=== PATIENT | female | born 1960 | race American Indian/Alaskan Native ===

== ENCOUNTER 2016-11-27 08:08 | Outpatient (CLI) | payer MEDICARE ==
--- NOTE | 2016-11-27 10:53 | Ultrasound Report ---
ULTRASOUND ABDOMEN COMPLETE: Technique: Transabdominal ultrasound with color Doppler interrogation. History: Epigastric abdominal pain. Comparison: CT abdomen pelvis with contrast dated 03/11/15. Findings: The liver is normal size, contour and echotexture. The gallbladder has been surgically removed. The CBD measures 9 mm. The visualized portions of the pancreas including the head and proximal body are within normal limits. The kidneys demonstrate no hydronephrosis or mass. Cortical thickness and echogenicity are within normal limits bilaterally. The spleen and aorta are within normal limits. No aneurysmal dilatation is noted. No ascites. IMPRESSION: Cholecystectomy, otherwise, unremarkable abdominal ultrasound.
== END 2016-11-27 08:09 | disposition home or self-care (01) ==
LOC: US 08:08
PROVIDERS: ATTEND Internal Medicine Gastroenterology
DX: R10.13 Epigastric pain (principal); Z90.49 Acquired absence of other specified parts of digestive tract
CPT/HCPCS: 76700

== ENCOUNTER 2017-01-31 08:28 | Outpatient (CLI) | payer MEDICARE ==
--- NOTE | 2017-01-31 10:27 | Mammography Report ---
Bilateral mammogram: Compared to 02/03/14. CAD study utilized. Findings: Predominance of adipose tissue bilaterally. Benign calcification right breast. Benign axillary nodes. Asymmetric density upper right breast without significant interval change. Impression: Benign findings. Annual followup recommended. BI-RADS CATEGORY: 2 = Benign ACR BI-RADS MAMMOGRAPHIC CODES: 0 = Needs additional imaging evaluation; 1 = Negative; 2 = Benign; 3 = Probably benign; 4 = Suspicious; 5 = Malignant; 6 = Known biopsy-proven malignancy COMMENT: 1. Dense breast tissue, i.e., adenosis, fibrocystic changes, etc., may obscure an underlying neoplasm. 2. Approximately 10% of cancers are not detected with mammography. 3. A negative mammography report should not delay biopsy if a clinically suspicious mass is present. COMMENT: Patient follow-up letters are generated in [employer].
== END 2017-01-31 08:29 | disposition home or self-care (01) ==
LOC: MAMMO 08:28
PROVIDERS: ATTEND Family Medicine
DX: Z12.31 Encounter for screening mammogram for malignant neoplasm of breast (principal); I10 Essential (primary) hypertension; E78.00 Pure hypercholesterolemia, unspecified; E11.9 Type 2 diabetes mellitus without complications; E03.9 Hypothyroidism, unspecified; F41.9 Anxiety disorder, unspecified
CPT/HCPCS: 77067; G0202

== ENCOUNTER 2017-02-11 09:23 | Emergency (ER) | payer MEDICARE ==
--- NOTE | 2017-02-12 18:48 | ED Elopement Review ---
ED Pt Elopement review - Results review Lab results: Review of patient's face sheet and chart reveals an elevated blood pressure of 198/119, O2 sat 100%, pulse 56, temperature 97.6, respiratory rate 15. Patient initially presented to ED for chest pain as per patient registration record face sheet. Patient had EKG which was sinus rhythm signed by Dr. Higuera. No labwork done on pt as per [employer]. pt should be called back to return to the ED for eval - Call Back decision Pt Call Back Decision: Call pt to return to ED [facility]
== END 2017-02-11 09:24 | disposition left against medical advice (07) ==
LOC: ED 09:23
DX: R07.9 Chest pain, unspecified (principal); Z53.21 Procedure and treatment not carried out due to patient leaving prior to being seen by health care provider
CPT/HCPCS: 93005; 93010

== ENCOUNTER 2017-03-18 06:03 | Day surgery (SDC) | payer MEDICARE ==
--- NOTE | 2017-03-18 07:29 | Anesthesia Day of Surgery ---
Anesthesia Day of Surgery - Day of Surgery Patient Examined: Yes Patient H&P Reviewed: Yes Patient is NPO: Yes Beta Blockers: Yes
--- NOTE | 2017-03-18 07:30 | Anesthesia Consultation ---
Anesthesia Consult and Med Hx Date of service: 03/18/17 - Airway Anesthetic Teeth Evaluation: Good ROM Head & Neck: Adequate Mental/Hyoid Distance: Adequate Mallampati Class: Class I Intubation Access Assessment: Good - Pulmonary Exam CTA: Yes - Cardiac Exam Cardiac Exam: RRR - Pre-Operative Health Status ASA Pre-Surgery Classification: ASA3 Proposed Anesthetic Plan: MAC - Pulmonary Hx Asthma: Yes (no inhaler for years) COPD: No Hx Sleep Apnea: Yes (HX SLEEP APNEA RESOLVED) - Cardiovascular System Hx Hypertension: Yes (took coreg) Hx Heart Attack/AMI: No Hx Pacemaker: No Hx Internal Defibrillator: No Hx Valvular Heart Disease: Yes (MVP) - Central Nervous System Hx Seizures: No - Endocrine Hx Renal Disease: No Hx Liver Disease: No Hx Non-Insulin Dependent Diabetes: Yes (recently placed on meds but Pt takes them intermittently) Hx Hypothyroidism: Yes (partial thyroidectomy) - Hematic Hx Sickle Cell Disease: No - Other Systems Hx Obesity: Yes
[2017-03-18] MEDS ORDERED: DIPRIVAN 10 MG/ML IV ONE (07:52)
--- NOTE | 2017-03-18 07:54 | Discharge Summary ---
Providers - Providers Date of discharge: 03/18/17 Attending physician: EDGAR CHAVEZ Primary care physician: RAHEL BETANCOURT Hospitalization Condition: Good Procedures: egd Disposition: DC-01 TO HOME OR SELFCARE Core Measure Documentation - Palliative Care Palliative Care/ Comfort Measures: Not Applicable - Core Measures Any of the following diagnoses?: none Exam - Physical Exam Narrative exam: same as pre-op exam - Constitutional Vitals: Temp Pulse Resp BP Pulse Ox 97.4 F L 61 15 141/76 99 03/18/17 07:15 03/18/17 07:15 03/18/17 07:15 03/18/17 07:15 03/18/17 07:15 Plan Activity: no restrictions Weight Bearing Status: Full Weight Bearing Diet: regular Follow up with: RAHEL BETANCOURT MD [Primary Care Provider] - 7 Days
[2017-03-18] MEDS ORDERED: NACL 0.9% 1000 ML 1,000 ML IV SCH (08:00)
[2017-03-18] MEDS ORDERED: ZOFRAN ONE (08:24)
--- NOTE | 2017-03-18 08:28 | Post Anesthesia Evaluation ---
- Post Anesthesia Evaluation Patient Participated: Yes Airway Patent: Yes Stable Respiratory Function: Yes Temp > 96.8F: Yes Pain Manageable: Yes Adequeate Hydration: Yes Anesthesia Complications: No
[2017-03-18 08:50] VITALS: BP 150/83
--- NOTE | 2017-03-18 10:10 | Operative Report ---
Operative Report Operative Report: EGD Post bypass DATE: 03/18/17 OPERATIVE REPORT - EGD PREOP DIAGNOSIS: epigastric pain POSTOP DIAGNOSIS: same SURGERY: 1.Upper endoscopy, 2. biopsy of gastric pouch mucosa SURGEON: Sanjuanita Perez M.D. CNC GRINDER: n/a TYPE OF ANESTHESIA: MAC. ESTIMATED BLOOD LOSS: None. COMPLICATIONS: None. SPECIMENS REMOVED: gastric pouch mucosa bx FINDINGS: 1. normal esophagus 2. gastric pouch -40ml 3. gastrojejunal anastomosis is 25mm INDICATIONS:INDICATION FOR PROCEDURE: Patient is a 57-year-old female s/p gastric bypass in. Pt complains of epigastric pain for several months. She is here to look for possible pathology of the pain. PROCEDURE DETAILS: After consent was reviewed, patient was taken back to the operating room where patient was placed in the left lateral decubitus position and a bite block was placed in the mouth. After a time-out was called, MAC anesthesia was initiated. I then passed the endoscope into the patients oropharynx, into the esophagus, visualized the entire esophagus, which was all within normal limits. I then visualized the gastric pouch which was normal and about 40ml in size. The gastrojejunal anastomosis was normal at about 25mm. The proximal portion of the marisol limb was normal. No ulcers, masses, or legions were identified. A biopsy was taken of the gastric pouch mucosa with cold forceps. The specimen was sent to pathology to look for H. pylori. I then desufflated the gastric pouch and removed the endoscope. Patient tolerated procedure well and was transferred to recovery room in good and stable condition.
== END 2017-03-18 06:04 | disposition home or self-care (01) ==
LOC: GIO 06:03
PROVIDERS: ATTEND Surgery
DX: R10.13 Epigastric pain (principal); J45.909 Unspecified asthma, uncomplicated; I10 Essential (primary) hypertension; E11.9 Type 2 diabetes mellitus without complications; E03.9 Hypothyroidism, unspecified; F41.9 Anxiety disorder, unspecified; M19.90 Unspecified osteoarthritis, unspecified site; M06.9 Rheumatoid arthritis, unspecified; E66.9 Obesity, unspecified; Z68.33 Body mass index [BMI] 33.0-33.9, adult; Z86.79 Personal history of other diseases of the circulatory system; Z88.2 Allergy status to sulfonamides; Z98.890 Other specified postprocedural states; Z98.84 Bariatric surgery status; Z90.49 Acquired absence of other specified parts of digestive tract; Z79.899 Other long term (current) drug therapy
CPT/HCPCS: 43239; 82962; 88305; 88342; J2405; J2704; J7030

== ENCOUNTER 2017-06-03 11:44 | Inpatient (IN) | payer MEDICARE ==
--- NOTE | 2017-06-03 12:07 | Emergency Department Report ---
Chief Complaint: Chest Pain Stated Complaint: DIFFICULTY BREATHING Time Seen by Provider: 06/03/17 12:02 - HPI History of Present Illness: Patient here reports that she was sent from [facility] [place] [facility] directly to the emergency room for evaluation of chest pain and shortness of breath. She said they did EKG at the office and they said her EKG was fine. She was seen for follow-up chest pain. Patient said her chest is hurting and she is having difficulty breathing since yesterday. Pain is 8 out of 10. She has has a history of mitral valve prolapse, thyroid disease ,systemic lupus, diabetes, hypertension, rheumatoid arthritis. See information sent by [facility] [place] along with their EKG. Patient is also complaining of epigastric pain that comes and goes and she says that she feels like her abdomen is swollen. Denies any diarrhea. Denies any radiation of pain. Patient says she has a history of acid reflux and she is on Nexium. Patient current medication are clonidine, Cruz, levothyroxine, poor air and spiralactone. She denies any history of congestive heart failure. Denies history of blood clots, personally or in her family. She said when she was been worked up for lupus and rheumatoid arthritis they told her that she should take aspirin because she has something were her blood is too thick. She says she recently came from [place] but she says she did not drive. ECHOCARDIOGRAPHY, August 2016 and she 'll E if of 55%, mild LVH and mild to moderate MR. Patient had YEIMI March 2010, dual isotope stress stress test 2010. Monitor in February 2014. This is a patient of Dr. Ackerman was a nicker. - ROS Review of Systems: All systems are negative unless stated in HPI above - Exam Vital Signs: Vital Signs 06/03/17 11:53 Temperature 98.0 F Pulse Rate 72 Respiratory 16 Rate Blood Pressure 168/90 O2 Sat by Pulse 99 Oximetry Physical Exam: gen: This is a 57-year-old female that looks mildly distressed but nontoxic in appearance. Heart : S1, S2. Regular rate and rhythm. Lungs: Sounds clear to auscultate bilaterally, patient with shortness of breath and exertion and mild increased work of breathing. Abdomen: Mild tenderness to palpate the epigastric area, MSE screening note: Focused history and physical exam performed. Due to findings the following was ordered:see [facility] ED Medical Decision Making - Medical Decision Making MDM: Patient screened by provider in triage area. Appropriate protocol initiated and patient to be seen in main ED by Dr. CARDENAS Disposition for MSE Condition: Stable
[2017-06-03 12:40] LABS: Basophils % (Auto) 0.5 % (0.0-1.8); Eosinophils % (Auto) 2.2 % (0.0-4.3); Hematocrit 34.6 % (30.3-42.9); Hemoglobin 11.1 gm/dl (10.1-14.3); Mean Corpuscular HGB Conc 32 % (30-34); Mean Corpuscular Hemoglobin 28 pg (28-32); Mean Corpuscular Volume 86 fl (79-97); Platelet Count 197 K/mm3 (140-440); Red Blood Count 4.03 M/mm3 (3.65-5.03); Red Cell Distribution Width 13.7 % (13.2-15.2); White Blood Count 5.5 K/mm3 (4.5-11.0)
[2017-06-03] MEDS ORDERED: DILAUDID IV ONE (12:43)
[2017-06-03 12:51] LABS: Partial Thromboplastin Time 30.3 Sec. (24.2-36.6)
[2017-06-03 12:55] LABS: Alanine Aminotransferase 12 units/L (7-56); Albumin 3.7 g/dL (3.9-5); Alkaline Phosphatase 129 units/L (35-129); Anion Gap 16 mmol/L; BUN/Creatinine Ratio 10; Blood Urea Nitrogen 11 mg/dL (7-17); Calcium 9.1 mg/dL (8.4-10.2); Carbon Dioxide 27 mmol/L (22-30); Chloride 102.3 mmol/L (98-107); Glucose 104 mg/dL (65-100); Lipase 26 units/L (13-60); Potassium 3.8 mmol/L (3.6-5.0); Sodium 141 mmol/L (137-145); Total Protein 7.3 g/dL (6.3-8.2)
[2017-06-03] MEDS ORDERED: ZOFRAN IV ONE (12:59)
[2017-06-03 13:02] LABS: Bacteria,Urine 1+ /HPF (Negative); Bilirubin,Urine NEG (Negative); Blood,Urine NEG (Negative); Ketones,Urine NEG (Negative); Leukocyte Esterase,Urine NEG (Negative); Nitrite,Urine NEG (Negative); Protein,Urine <15 mg/dL mg/dL (Negative); Urobilinogen,Urine < 2.0 mg/dL (<2.0)
[2017-06-03 13:03] LABS: WBC,Urine < 1.0 /HPF (0.0-6.0)
[2017-06-03] MEDS ORDERED: ZOFRAN ONE (13:03)
--- NOTE | 2017-06-03 13:19 | Emergency Department Report ---
HPI - General Chief Complaint: Chest Pain Time Seen by Provider: 06/03/17 12:07 - HPI HPI: This is a 57-year-old female presents to the emergency department from her cardiology office at [facility] with a complaint of a 2 day history of some chest pain and shortness of breath. She says it is a cramping and "grabbing" sensation that starts in the middle of the chest and radiate towards the back. She thought it might be acid reflux and therefore has been taking Nexium, an antacid and some laxatives. She has a past medical history of asthma, diabetes, GERD, hypertension, lupus and hypothyroidism. She has a surgical history of gastric bypass, thyroid removal and section. Her head host/hostess is Dr. Mcdaniel. She denies tobacco or illicit drug use or abuse. The note from the head host/hostess says that she had a normal cardiac catheterization back in 2014 and she has had for a normal nuclear stress test since 2003. She also has a history of nontraumatic mitral regurgitation. ED Past Medical Hx - Past Medical History Hx Hypertension: Yes (took coreg) Hx CVA: No Hx Heart Attack/AMI: No Hx Congestive Heart Failure: No Hx Diabetes: Yes Hx Deep Vein Thrombosis: No Hx Pulmonary Embolism: No Hx GERD: Yes Hx Liver Disease: No Hx Renal Disease: No Hx Sickle Cell Disease: No Hx Arthritis: No Hx Headaches / Migraines: No Hx Seizures: No Hx Kidney Stones: No Hx Psychiatric Treatment: No Hx Asthma: Yes (no inhaler for years) Hx COPD: No Hx Tuberculosis: No Hx Dementia: No Hx HIV: No Additional medical history: Lupus, hypothyroidism - Surgical History Hx Coronary Stent: No Hx Open Heart Surgery: No Hx Pacemaker: No Hx Internal Defibrillator: No Hx Cholecystectomy: Yes Hx Appendectomy: No Hx Breast Surgery: No Additional Surgical History: Gastric bypass, thyroid surgery, partial hysterectomy, section - Social History Smoking Status: Never Smoker Substance Use Type: Alcohol - Medications Home Medications: Home Medications Medication Instructions Recorded Confirmed Last Taken Type cloNIDine [Catapres] 0.1 mg PO BID PRN #20 tablet 05/02/15 06/03/17 06/02/17 Rx Carvedilol [Coreg] 6.25 mg PO QDAY 07/26/15 06/03/17 06/02/17 History ALPRAZolam [Xanax TAB] 1 mg PO TID PRN 06/03/17 06/03/17 06/02/17 History Esomeprazole Magnesium [NexIUM] 40 mg PO QDAY 06/03/17 06/03/17 06/02/17 History Furosemide [Lasix] 20 mg PO BID 06/03/17 06/03/17 06/02/17 History Spironolactone [Aldactone] 25 mg PO BID 06/03/17 06/03/17 06/02/17 History metFORMIN [Glucophage] 500 mg PO BID 06/03/17 06/03/17 06/02/17 History ED Review of Systems ROS: Stated complaint: DIFFICULTY BREATHING Other details as noted in HPI Comment: All other systems reviewed and negative Constitutional: denies: chills, fever Eyes: denies: eye pain, eye discharge, vision change ENT: denies: ear pain, throat pain Respiratory: shortness of breath. denies: cough Cardiovascular: chest pain. denies: palpitations Gastrointestinal: denies: abdominal pain, nausea, diarrhea Genitourinary: denies: urgency, dysuria, discharge Musculoskeletal: back pain. denies: arthralgia Skin: denies: rash, lesions Neurological: denies: headache, weakness, paresthesias Physical Exam - Physical Exam Vital Signs: Vital Signs 06/03/17 06/03/17 11:53 12:56 Temperature 98.0 F Pulse Rate 72 Respiratory 16 24 Rate Blood Pressure 168/90 O2 Sat by Pulse 99 Oximetry Physical Exam: GENERAL: The patient is well-developed well-nourished. HENT: Normocephalic. Atraumatic. Patient has moist mucous membranes. EYES: Extraocular motions are intact. Pupils equal reactive to light bilaterally. NECK: Supple. Trachea is midline. CHEST/LUNGS: Clear to auscultation. There is no respiratory distress noted. HEART/CARDIOVASCULAR: Regular. There is no tachycardia. There is no gallop rub or murmur. ABDOMEN: Abdomen is soft, nontender. Patient has normal bowel sounds. There is no abdominal distention. SKIN: Skin is warm and dry. NEURO: The patient is awake, alert, and oriented. The patient is cooperative. The patient has no focal neurologic deficits. The patient has normal speech. MUSCULOSKELETAL: There is no tenderness or deformity. There is no limitation range of motion. There is no evidence of acute injury. ED Course Vital Signs 06/03/17 06/03/17 11:53 12:56 Temperature 98.0 F Pulse Rate 72 Respiratory 16 24 Rate Blood Pressure 168/90 O2 Sat by Pulse 99 Oximetry ED Medical Decision Making - Lab Data Result diagrams: 06/03/17 12:15 06/03/17 12:15 - EKG Data -: EKG Interpreted by Me EKG shows normal: sinus rhythm, axis, intervals, QRS complexes (LVH), ST-T waves Rate: normal - EKG Data When compared to previous EKG there are: previous EKG unavailable Interpretation: LVH - Radiology Data Radiology results: image reviewed interpreted by me: Chest x-ray does not show any acute process. There are no pleural effusions, obvious pneumonia and there is no pneumothorax. - Medical Decision Making 57-year-old female presents with a few days of some chest discomfort and shortness of breath. Sent in by cardiology. First troponin negative. Negative d-dimer. EKG does not show ST elevation WI. Chest x-ray does not show any acute process. Since she has not had a negative stress test within a reasonable amount of time and was instructed by cardiology, plan will be to admit the patient for further evaluation. She has been accepted for admission by the hospitalist, Dr Ludwig. - Differential Diagnosis WI, PE, CHF, Pneumonia, GERD Critical Care Time: No Critical care attestation.: If time is entered above; I have spent that time in minutes in the direct care of this critically ill patient, excluding procedure time. ED Disposition Clinical Impression: Chest pain Qualifiers: Chest pain type: unspecified Qualified Code(s): R07.9 - Chest pain, unspecified Dyspnea Qualifiers: Dyspnea type: shortness of breath Qualified Code(s): R06.02 - Shortness of breath; R06.00 - Dyspnea, unspecified; R06.01 - Orthopnea Hypertension Qualifiers: Hypertension type: essential hypertension Qualified Code(s): I10 - Essential ( primary) hypertension Disposition: OP ADMIT IP TO THIS HOSP Is pt being admited?: Yes Condition: Stable Time of Disposition: 15:49
[2017-06-03] MEDS ORDERED: NITROSTAT SL PRN (13:43)
[2017-06-03] MEDS ORDERED: BABY ASPIRIN PO STA (13:43)
[2017-06-03] MEDS ORDERED: TYLENOL PO PRN (13:43)
[2017-06-03] MEDS ORDERED: MILK OF MAGNESIA PO PRN (13:43)
[2017-06-03] MEDS ORDERED: SODIUM CHLORIDE FLUSH SYRINGE 10 ML IV PRN (13:43)
[2017-06-03] MEDS ORDERED: PROVENTIL IH PRN (13:43)
[2017-06-03] MEDS ORDERED: DULCOLAX PR PRN (13:43)
--- NOTE | 2017-06-03 13:46 | XRay Report ---
PORTABLE CHEST INDICATION: Shortness of breath, chest pain. COMPARISON: 07/26/2015 FINDINGS: Portable, frontal chest radiograph demonstrates stable cardiomediastinal silhouette, clear lungs, lower cervical/superior mediastinal postsurgical changes and osseous structures. CONCLUSION: No acute chest process or significant interval change, as described. Thank you for the opportunity to participate in this patient's care.
[2017-06-03] MEDS ORDERED: MOTRIN PO PRN (13:47)
[2017-06-03] MEDS ORDERED: CATAPRES PO PRN (13:47)
[2017-06-03] MEDS ORDERED: NON-FORMULARY (Xanax Tab 1 MG) PO PRN (13:47)
--- NOTE | 2017-06-03 13:59 | History and Physical Report ---
History of Present Illness Chief complaint: My chest hurts History of present illness: 57 YO Female with SLE(Not currently on medication), HTN, GERD, DM, Asthma, Hypothyroid, presents to ED for evaluation. Pt states that she had experienced pain in her chest for the past 2 days with worsening symptoms over the past 1 day. Pt seen and evaluated in her cardiologists office who instructed her to present to ED for evaluation. Pt states that he pain in 4-6/10, substernal, radiates towards her back, associated with shortness of breath, cramping in nature, not worsened with exertion, or relieved with rest. Pain not relieved with antacid therapy. Pt denies fever, chills, Palpitations, NVD, syncope, leg swelling, calf pain, prolonged immobility/travel, individual/family history of DVT/PE, hemoptysis, trauma, productive cough, recent ill contacts, or noncompliance with medication. Pt seen and evaluated in ED. Past History Past Medical History: diabetes, hypertension, hypothyroidism, other (Asthma, SLE ) Past Surgical History: cholecystectomy, hysterectomy, Other (gastric bypass) Social history: single. denies: smoking, alcohol abuse, prescription drug abuse Family history: CAD, diabetes, hypertension Medications and Allergies Allergies Allergy/AdvReac Type Severity Reaction Status Date / Time Sulfa (Sulfonamide Allergy Shortness Verified 04/11/15 01:22 Antibiotics) of Breath Home Medications Medication Instructions Recorded Confirmed Last Taken Type cloNIDine [Catapres] 0.1 mg PO BID PRN #20 tablet 05/02/15 06/03/17 06/02/17 Rx Carvedilol [Coreg] 6.25 mg PO QDAY 07/26/15 06/03/17 06/02/17 History ALPRAZolam [Xanax TAB] 1 mg PO TID PRN 06/03/17 06/03/17 06/02/17 History Esomeprazole Magnesium [NexIUM] 40 mg PO QDAY 06/03/17 06/03/17 06/02/17 History Furosemide [Lasix] 20 mg PO BID 06/03/17 06/03/17 06/02/17 History Spironolactone [Aldactone] 25 mg PO BID 06/03/17 06/03/17 06/02/17 History metFORMIN [Glucophage] 500 mg PO BID 06/03/17 06/03/17 06/02/17 History Active Meds: Active Medications Acetaminophen (Tylenol) 650 mg PO Q4H PRN PRN Reason: Pain MILD(1-3)/Fever >100.5/PRYOR Acetaminophen/Hydrocodone Bitart (Shock 10/325) 1 each PO BID [facility] Albuterol (Proventil) 2.5 mg IH Q4HRT PRN PRN Reason: Shortness Of Breath Atorvastatin Calcium (Lipitor) 40 mg PO QHS [facility] Bisacodyl (Dulcolax) 10 mg MD QDAY PRN PRN Reason: Constipation unrelieved by MOM Carvedilol (Coreg) 6.25 mg PO QDAY [facility] Clonidine HCl (Catapres) 0.1 mg PO BID PRN PRN Reason: Hypertension Hydromorphone HCl (Dilaudid) 0.5 mg IV Q3H PRN PRN Reason: Pain , Severe (7-10) Ibuprofen (Motrin) 800 mg PO Q8HR PRN PRN Reason: Pain Levothyroxine Sodium (Synthroid) 150 mcg PO QAM@0600 [facility] Magnesium Hydroxide (Milk Of Magnesia) 30 ml PO Q4H PRN PRN Reason: Constipation Miscellaneous Medication (Folic Acid) 1 mg PO DAILY [facility] Miscellaneous Medication (Mometasone/Formoterol [Dulera 100 Mcg/5 Mcg Inhaler]) 2 puff INHALATION BID [facility] Miscellaneous Medication (Xanax Tab) 1 mg PO PRN PRN PRN Reason: Anxiety Nitroglycerin (Nitrostat) 0.4 mg SL Q5M PRN PRN Reason: Chest Pain Ondansetron HCl (Zofran) 4 mg IV Q8H PRN PRN Reason: N/V unrelieved by Reglan Sodium Chloride (Sodium Chloride Flush Syringe 10 Ml) 10 ml IV PRN PRN PRN Reason: LINE FLUSH Review of Systems Constitutional: fatigue, weakness, chronic pain, no weight loss, no weight gain Ears, nose, mouth and throat: no ear pain, no ear discharge, no tinnitis, no decreased hearing, no nose pain, no nasal congestion, no nasal discharge Breasts: no change in shape, no swelling, no mass Cardiovascular: chest pain, no orthopnea, no palpitations, no syncope, no lightheadedness Respiratory: no cough, no cough with sputum, no excessive sputum, no hemoptysis , no dyspnea on exertion Gastrointestinal: no abdominal pain, no nausea, no vomiting, no diarrhea, no constipation Genitourinary Female: no pelvic pain, no flank pain, no menorrhagia, no dysuria Rectal: no pain, no incontinence, no bleeding Musculoskeletal: no neck stiffness, no neck pain, no shooting arm pain, no arm numbness/tingling, no low back pain, no shooting leg pain, no leg numbness/ tingling Integumentary: no rash, no pruritis, no redness, no sores, no wounds, no jaundice Neurological: no head injury, no transient paralysis, no paralysis, no weakness , no parathesias, no numbness, no tingling, no seizures Psychiatric: no anxiety, no memory loss, no change in sleep habits, no sleep disturbances, no insomnia, no hypersomnia, no change in appetite, no change in libido, no suicidal ideation Endocrine: no cold intolerance, no heat intolerance, no polyphagia, no excessive thirst, no polydipsia Hematologic/Lymphatic: no easy bruising, no easy bleeding Allergic/Immunologic: no urticaria, no allergic rhinitis, no wheezing Exam - Constitutional Vitals: Temp Pulse Resp BP Pulse Ox 98.0 F 72 24 168/90 99 06/03/17 11:53 06/03/17 11:53 06/03/17 12:56 06/03/17 11:53 06/03/17 11:53 General appearance: Present: mild distress, obese - EENT Eyes: Present: PERRL ENT: hearing intact, clear oral mucosa - Neck Neck: Present: supple, normal ROM - Respiratory Respiratory: bilateral: diminished - Cardiovascular Heart Sounds: Present: S1 & S2. Absent: rub, click - Extremities Extremities: pulses symmetrical, No edema Peripheral Pulses: within normal limits - Abdominal General gastrointestinal: Present: soft, non-tender, non-distended, normal bowel sounds Female genitourinary: Present: normal - Integumentary Integumentary: Present: clear, dry, clammy, decreased turgor - Musculoskeletal Musculoskeletal: generalized weakness - Psychiatric Psychiatric: appropriate mood/affect, intact judgment & insight - Neurologic Neurologic: CNII-XII intact, moves all extremities Results - Labs CBC & Chem 7: 06/03/17 12:15 06/03/17 12:15 Labs: Abnormal lab results 06/03/17 06/03/17 Range/Units 12:15 12:15 [place] % (Auto) 9.7 H (0.0-7.3) % Glucose 104 H (65-100) mg/dL Albumin 3.7 L (3.9-5) g/dL Assessment and Plan - Patient Problems (1) ACS (acute coronary syndrome) Current Visit: Yes Status: Acute Plan to address problem: Admit to telemetry, serial cardiac enzymes, ekg, cardiology consulted, Echo, D dimer, supportive care, pain control morphine/dilaudid, oxygen, nitro tabs, Aspirin (2) SLE exacerbation Current Visit: Yes Status: Acute Plan to address problem: IN steroid therapy, supportive care, pain control, outpatient Rheumatology f/u. (3) Diabetes Current Visit: Yes Status: Acute Qualifiers: Diabetes mellitus type: D Diabetes mellitus complication status: D Diabetes mellitus complication detail: D Diabetic retinopathy severity: D Proliferative retinopathy type: P Diabetes mellitus macular edema: D Diabetes mellitus ad terminal makeup operator insulin use: D Laterality: L Chronic kidney disease stage: C Plan to address problem: ADA diet, insulin, accu check, low cholesterol diet, carbohydrate counting education. goal is less than 55 grams daily. (4) Accelerated hypertension Current Visit: Yes Status: Acute Plan to address problem: monitor bp q shift, continue medical management. (5) GERD (gastroesophageal reflux disease) Current Visit: Yes Status: Acute Qualifiers: Esophagitis presence: E Plan to address problem: PPI therapy, (6) DVT prophylaxis Current Visit: No Status: Acute
[2017-06-03] MEDS ORDERED: XANAX PO PRN (14:02)
[2017-06-03] MEDS ORDERED: BABY ASPIRIN ONE (14:44)
[2017-06-03] MEDS: ZOFRAN IV PRN (16:43)
[2017-06-03] MEDS: DILAUDID IV PRN (16:45)
[2017-06-03] MEDS: BROVANA NEBU IH SCH (19:47)
[2017-06-03] MEDS: PULMICORT IH SCH (19:47)
[2017-06-03] MEDS: NORCO 10/325 PO SCH (21:17)
[2017-06-03] MEDS ORDERED: NON-FORMULARY (Mometasone/Formoterol [Dulera 100 Mcg/5 Mcg Inhaler] 2 PUFF) INHALATION SCH (22:00)
[2017-06-04] MEDS: ZOFRAN IV PRN ×2 (02:17→21:33)
[2017-06-04] MEDS: DILAUDID IV PRN (02:17)
[2017-06-04] MEDS: SYNTHROID PO SCH (05:18)
[2017-06-04] MEDS ORDERED: NON-FORMULARY (Folic Acid 1 MG) PO SCH (10:00)
--- NOTE | 2017-06-04 10:02 | Progress Note ---
Assessment and Plan Assessment and plan: 57 YO Female with SLE(Not currently on medication), HTN, GERD, DM, Asthma, Hypothyroid, presents to ED for evaluation. She presented complaining of epigastric pain. SURGERY SPECIALIST he had the pain since she had bariatric surgery years ago ACS was ruled out, patient denies chest pain. Serial troponins negative, EKG negative SLE exacerbation ruled out. Patient denies any symptoms consistent with SLE she has been off meds for very long time. Diabetes Continue sliding scale insulin while in hospital Hypertension Optimize medication GERD This is most likely etiology of her symptoms. Continue PPI Abdominal pain Given that the patient has history of bariatric surgery and subsequent revision. We'll consult bariatric surgery while she is in hospital along with GI. -There is concern that this is psychosomatic. Patient advised to see her psychiatrist about patient's to optimize her medications for treatment of anxiety disorder Anxiety disorder Recommendations as above History Interval history: The patient is complaining of chronic abdominal pain, bloating, feeling of fullness and soreness in her epigastrium. She's had these symptoms on and off since she had bariatric surgery many years ago Hospitalist Physical - Constitutional Vitals: Temp Pulse Resp BP Pulse Ox 98.0 F 55 L 20 147/80 97 06/03/17 11:53 06/04/17 06:00 06/04/17 02:17 06/03/17 16:39 06/03/17 16:39 General appearance: Present: no acute distress - EENT Eyes: Present: PERRL ENT: hearing intact - Neck Neck: Present: supple - Respiratory Respiratory effort: normal Respiratory: bilateral: CTA - Cardiovascular Rhythm: regular Heart Sounds: Present: S1 & S2 - Extremities Extremities: no ischemia Peripheral Pulses: within normal limits - Abdominal General gastrointestinal: soft, non-tender - Integumentary Integumentary: Present: clear, warm - Psychiatric Psychiatric: appropriate mood/affect, other (anxious) - Neurologic Neurologic: CNII-XII intact Results - Labs CBC & Chem 7: 06/03/17 12:15 06/03/17 12:15 Labs: Laboratory Last Values WBC 5.5 K/mm3 (4.5-11.0) 06/03/17 12:15 RBC 4.03 M/mm3 (3.65-5.03) 06/03/17 12:15 Hgb 11.1 gm/dl (10.1-14.3) 06/03/17 12:15 Hct 34.6 % (30.3-42.9) 06/03/17 12:15 MCV 86 fl (79-97) 06/03/17 12:15 MCH 28 pg (28-32) 06/03/17 12:15 MCHC 32 % (30-34) 06/03/17 12:15 RDW 13.7 % (13.2-15.2) 06/03/17 12:15 Plt Count 197 K/mm3 (140-440) 06/03/17 12:15 Lymph % (Auto) 30.6 % (13.4-35.0) 06/03/17 12:15 Rosebud % (Auto) 9.7 % (0.0-7.3) H 06/03/17 12:15 Eos % (Auto) 2.2 % (0.0-4.3) 06/03/17 12:15 Baso % (Auto) 0.5 % (0.0-1.8) 06/03/17 12:15 Lymph # 1.7 K/mm3 (1.2-5.4) 06/03/17 12:15 [place] # 0.5 K/mm3 (0.0-0.8) 06/03/17 12:15 Eos # 0.1 K/mm3 (0.0-0.4) 06/03/17 12:15 Baso # 0.0 K/mm3 (0.0-0.1) 06/03/17 12:15 Seg Neutrophils % 57.0 % (40.0-70.0) 06/03/17 12:15 Seg Neutrophils # 3.1 K/mm3 (1.8-7.7) 06/03/17 12:15 PT 13.7 Sec. (12.2-14.9) 06/03/17 12:15 INR 1.00 (0.87-1.13) 06/03/17 12:15 APTT 30.3 Sec. (24.2-36.6) 06/03/17 12:15 D-Dimer 182.9 ng/mlDDU (0-234) 06/03/17 12:15 Sodium 141 mmol/L (137-145) 06/03/17 12:15 Potassium 3.8 mmol/L (3.6-5.0) 06/03/17 12:15 Chloride 102.3 mmol/L (98-107) 06/03/17 12:15 Carbon Dioxide 27 mmol/L (22-30) 06/03/17 12:15 Anion Gap 16 mmol/L 06/03/17 12:15 BUN 11 mg/dL (7-17) 06/03/17 12:15 Creatinine 1.1 mg/dL (0.7-1.2) 06/03/17 12:15 Estimated GFR > 60 ml/min 06/03/17 12:15 BUN/Creatinine Ratio 10 % 06/03/17 12:15 Glucose 104 mg/dL (65-100) H 06/03/17 12:15 POC Glucose 235 (70-105) H 06/03/17 22:02 Hemoglobin A1c 5.6 % (4-6) 06/03/17 12:15 Calcium 9.1 mg/dL (8.4-10.2) 06/03/17 12:15 Total Bilirubin 0.30 mg/dL (0.1-1.2) 06/03/17 12:15 AST 16 units/L (5-40) 06/03/17 12:15 ALT 12 units/L (7-56) 06/03/17 12:15 Alkaline Phosphatase 129 units/L (35-129) 06/03/17 12:15 Troponin T < 0.010 ng/mL (0.00-0.029) 06/03/17 19:55 NT-Pro-B Natriuret Pep 100.2 pg/mL (0-900) 06/03/17 12:15 Total Protein 7.3 g/dL (6.3-8.2) 06/03/17 12:15 Albumin 3.7 g/dL (3.9-5) L 06/03/17 12:15 Albumin/Globulin Ratio 1.0 % 06/03/17 12:15 Triglycerides 96 mg/dL (2-149) 06/03/17 12:15 Cholesterol 221 mg/dL (50-199) H 06/03/17 12:15 LDL Cholesterol Direct 132 mg/dL (50-130) H 06/03/17 12:15 HDL Cholesterol 70 mg/dL (40-59) H 06/03/17 12:15 Cholesterol/HDL Ratio 3.15 % 06/03/17 12:15 Lipase 26 units/L (13-60) 06/03/17 12:15 Urine Color Yellow (Yellow) 06/03/17 12:07 Urine Turbidity Clear (Clear) 06/03/17 12:07 Urine pH 6.0 (5.0-7.0) 06/03/17 12:07 Ur Specific Maurice 1.008 (1.003-1.030) 06/03/17 12:07 Urine Protein <15 mg/dl mg/dL (Negative) 06/03/17 12:07 Urine Glucose (UA) Neg mg/dL (Negative) 06/03/17 12:07 Urine Ketones Neg mg/dL (Negative) 06/03/17 12:07 Urine Blood Neg (Negative) 06/03/17 12:07 Urine Nitrite Neg (Negative) 06/03/17 12:07 Urine Bilirubin Neg (Negative) 06/03/17 12:07 Urine Urobilinogen < 2.0 mg/dL (<2.0) 06/03/17 12:07 Ur Leukocyte Esterase Neg (Negative) 06/03/17 12:07 Urine WBC (Auto) < 1.0 /HPF (0.0-6.0) 06/03/17 12:07 Urine RBC (Auto) 1.0 /HPF (0.0-6.0) 06/03/17 12:07 U Epithel Cells (Auto) < 1.0 /HPF (0-13.0) 06/03/17 12:07 Urine Bacteria (Auto) 1+ /HPF (Negative) 06/03/17 12:07
[2017-06-04] MEDS: BROVANA NEBU IH SCH ×2 (10:15→20:28)
[2017-06-04] MEDS: PULMICORT IH SCH ×2 (10:16→20:28)
[2017-06-04] MEDS ORDERED: Fluarix Quad 2017-2018(36 MOS+ IM ONE (12:00)
[2017-06-04] MEDS ORDERED: PNEUMOVAX 23 IM ONE (12:00)
--- NOTE | 2017-06-04 12:03 | Consultation ---
History of Present Illness Consult date: 06/04/17 Consult reason: chest pain History of present illness: This is a 57yr old woman who presented with chest pain describes as feeling of indigestion. Cardiac consultation was requested. Patient also reports chest pain that is worse with movement and deep inspirations. Patient has a history of gastric bypass surgery. There is no history of coronary artery disease. In fact, 2 years ago she had extensive cardiac workup at this hospital. She had a cardiac catheterization that demostrates normal coronaries. She also had a normal left ventricular systolic function, ejection fraction 60% on an echocardiogram. Her presenting ECG is a normal sinus rhythm. Past History Past Medical History: diabetes, hypertension, hypothyroidism, other (Asthma, SLE ) Past Surgical History: cholecystectomy, hysterectomy, Other (gastric bypass) Social history: single. denies: smoking, alcohol abuse, prescription drug abuse Family history: CAD, diabetes, hypertension Medications and Allergies Allergies Allergy/AdvReac Type Severity Reaction Status Date / Time Sulfa (Sulfonamide Allergy Shortness Verified 04/11/15 01:22 Antibiotics) of Breath Home Medications Medication Instructions Recorded Confirmed Last Taken Type cloNIDine [Catapres] 0.1 mg PO BID PRN #20 tablet 05/02/15 06/03/17 06/02/17 Rx Carvedilol [Coreg] 6.25 mg PO QDAY 07/26/15 06/03/17 06/02/17 History ALPRAZolam [Xanax TAB] 1 mg PO TID PRN 06/03/17 06/03/17 06/02/17 History Esomeprazole Magnesium [NexIUM] 40 mg PO QDAY 06/03/17 06/03/17 06/02/17 History Furosemide [Lasix] 20 mg PO BID 06/03/17 06/03/17 06/02/17 History Spironolactone [Aldactone] 25 mg PO BID 06/03/17 06/03/17 06/02/17 History metFORMIN [Glucophage] 500 mg PO BID 06/03/17 06/03/17 06/02/17 History Active Meds: Active Medications Acetaminophen (Tylenol) 650 mg PO Q4H PRN PRN Reason: Pain MILD(1-3)/Fever >100.5/PRYOR Acetaminophen/Hydrocodone Bitart ([place] 10/325) 1 each PO BID [facility] Last Admin: 06/03/17 21:17 Dose: 1 each Albuterol (Proventil) 2.5 mg IH Q4HRT PRN PRN Reason: Shortness Of Breath Alprazolam (Xanax) 1 mg PO Q6H PRN PRN Reason: Anxiety Arformoterol Tartrate (Brovana Nebu) 15 mcg IH Q12HRT [facility] Last Admin: 06/04/17 10:15 Dose: 15 mcg Atorvastatin Calcium (Lipitor) 40 mg PO QHS [facility] Last Admin: 06/03/17 21:17 Dose: 40 mg Bisacodyl (Dulcolax) 10 mg [place] QDAY PRN PRN Reason: Constipation unrelieved by MOM Budesonide (Pulmicort) 0.5 mg IH Q12HRT [facility] Last Admin: 06/04/17 10:16 Dose: 0.5 mg Carvedilol (Coreg) 6.25 mg PO QDAY [facility] Clonidine HCl (Catapres) 0.1 mg PO BID PRN PRN Reason: Hypertension Folic Acid (Folvite) 1 mg PO DAILY [facility] Hydromorphone HCl (Dilaudid) 0.5 mg IV Q3H PRN PRN Reason: Pain , Severe (7-10) Last Admin: 06/04/17 02:17 Dose: 0.5 mg Ibuprofen (Motrin) 800 mg PO Q8HR PRN PRN Reason: Pain Influenza Virus Vaccine Quadrival (Fluarix Quad [id number](36 Mos+) 0.5 ml IM .ONCE ONE Stop: 06/04/17 12:01 Levothyroxine Sodium (Synthroid) 150 mcg PO QAM@0600 [facility] Last Admin: 06/04/17 05:18 Dose: 150 mcg Magnesium Hydroxide (Milk Of Magnesia) 30 ml PO Q4H PRN PRN Reason: Constipation Methylprednisolone Sodium Succinate (Solu-Medrol) 40 mg IV Q12H [facility] Last Admin: 06/04/17 02:17 Dose: 40 mg Nitroglycerin (Nitrostat) 0.4 mg SL Q5M PRN PRN Reason: Chest Pain Ondansetron HCl (Zofran) 4 mg IV Q8H PRN PRN Reason: N/V unrelieved by Reglan Last Admin: 06/04/17 02:17 Dose: 4 mg Pneumococcal Polyvalent Vaccine (Pneumovax 23) 0.5 ml IM .ONCE ONE Stop: 06/04/17 12:01 Sodium Chloride (Sodium Chloride Flush Syringe 10 Ml) 10 ml IV PRN PRN PRN Reason: LINE FLUSH Physical Examination Vital Signs Temp Pulse Resp BP Pulse Ox 98.0 F 72 16 168/90 99 06/03/17 11:53 06/03/17 11:53 06/03/17 11:53 06/03/17 11:53 06/03/17 11:53 General appearance: no acute distress HEENT: Positive: PERRL Neck: Positive: trachea midline Cardiac: Positive: Reg Rate and Rhythm Results 06/03/17 12:15 06/03/17 12:15 Assessment and Plan Atypical chest pain Hypertension Hx of Gastric bypass Diabetes mellitus Hyperlipidemia
[2017-06-04] MEDS: NORCO 10/325 PO SCH ×2 (12:40→21:28)
[2017-06-04] MEDS: COREG PO SCH (12:41)
[2017-06-04] MEDS: FOLVITE PO SCH (12:42)
[2017-06-04] MEDS ORDERED: ALUM-MAG HYDROX-SIMETH 200-200-20MG/5ML PO PRN (13:38)
[2017-06-05] MEDS: DILAUDID IV PRN (05:26)
[2017-06-05] MEDS: ZOFRAN IV PRN (05:27)
[2017-06-05] MEDS: SYNTHROID PO SCH (05:28)
--- NOTE | 2017-06-05 06:26 | History and Physical Report ---
History of Present Illness Date of examination: 06/05/17 Date of admission: 06/03/17 13:43 Chief complaint: Cramping epigastric pain. History of present illness: 57 yo AAF with PMH of HTN, DM, hernia, and gastric bypass in 2008 presents for cramping epigastric pain. Pt states it feels like a chest pain that radiates to the back. Pain began on Saturday night/Saturday morning and pt presented to the hospital on Saturday. Pt also feels like she is having increased amounts of gas and bloating. While at home, she tried Nexium, Antacids, and laxatives with minimal relief. C/o nausea, denies constipation, diarrhea, or vomiting. Pt states she has not been taking in much food or liquid since the pain began. States that she has not felt this pain since her bariatric surgery, but before the procedure she did have a hernia and had a similar pain with cramping and indigestion. Pt reports mild shortness of breath. Past History Past Medical History: diabetes, hypertension, hypothyroidism, other (Asthma, SLE ) Past Surgical History: cholecystectomy, thyroidectomy, hysterectomy, Other ( gastric bypass) Social history: single, lives with family. denies: smoking, alcohol abuse, prescription drug abuse Family history: CAD, diabetes, hypertension, other (SLE (sister)) Medications and Allergies Allergies Allergy/AdvReac Type Severity Reaction Status Date / Time Sulfa (Sulfonamide Allergy Shortness Verified 04/11/15 01:22 Antibiotics) of Breath Home Medications Medication Instructions Recorded Confirmed Last Taken Type ALPRAZolam [Xanax TAB] 1 mg PO TID PRN #14 tablet 06/05/17 Unknown Rx AtorvaSTATin [Lipitor] 40 mg PO QHS #30 tablet 06/05/17 Unknown Rx Carvedilol [Coreg] 6.25 mg PO QDAY #60 tablet 06/05/17 Unknown Rx Esomeprazole Magnesium [NexIUM] 40 mg PO QDAY #30 capsule. 06/05/17 Unknown Rx Folic Acid [Folvite] 1 mg PO DAILY #30 tablet 06/05/17 Unknown Rx HYDROcodone/APAP 10-325 [[place] 1 each PO BID #14 tablet 06/05/17 Unknown Rx 10-325 mg TAB] Levothyroxine [Synthroid] 150 mcg PO QAM@0600 #30 tablet 11/15/17 Unknown Rx traZODone [Desyrel] 50 mg PO QHS #30 tab 06/05/17 Unknown Rx Active Meds: Active Medications Acetaminophen (Tylenol) 650 mg PO Q4H PRN PRN Reason: Pain MILD(1-3)/Fever >100.5/PRYOR Acetaminophen/Hydrocodone Bitart ([place] 10/325) 1 each PO BID [facility] Last Admin: 06/04/17 21:28 Dose: 1 each Al Hydrox/Mg Hydrox/Simethicone (Alum-Mag Hydrox-Simeth 813-895-40pf/5ml) 30 ml PO Q4H PRN PRN Reason: Indigestion Last Admin: 06/04/17 21:28 Dose: 30 ml Albuterol (Proventil) 2.5 mg IH Q4HRT PRN PRN Reason: Shortness Of Breath Alprazolam (Xanax) 1 mg PO Q6H PRN PRN Reason: Anxiety Arformoterol Tartrate (Brovana Nebu) 15 mcg IH Q12HRT [facility] Last Admin: 06/04/17 20:28 Dose: 15 mcg Atorvastatin Calcium (Lipitor) 40 mg PO QHS [facility] Last Admin: 06/04/17 21:28 Dose: 40 mg Bisacodyl (Dulcolax) 10 mg [place] QDAY PRN PRN Reason: Constipation unrelieved by MOM Budesonide (Pulmicort) 0.5 mg IH Q12HRT [facility] Last Admin: 06/04/17 20:28 Dose: 0.5 mg Carvedilol (Coreg) 6.25 mg PO QDAY [facility] Last Admin: 06/04/17 12:41 Dose: 6.25 mg Clonidine HCl (Catapres) 0.1 mg PO BID PRN PRN Reason: Hypertension Folic Acid (Folvite) 1 mg PO DAILY [facility] Last Admin: 06/04/17 12:42 Dose: 1 mg Hydromorphone HCl (Dilaudid) 0.5 mg IV Q3H PRN PRN Reason: Pain , Severe (7-10) Last Admin: 06/05/17 05:26 Dose: 0.5 mg Levothyroxine Sodium (Synthroid) 150 mcg PO QAM@0600 [facility] Last Admin: 06/05/17 05:28 Dose: 150 mcg Magnesium Hydroxide (Milk Of Magnesia) 30 ml PO Q4H PRN PRN Reason: Constipation Methylprednisolone Sodium Succinate (Solu-Medrol) 40 mg IV Q12H [facility] Last Admin: 06/05/17 02:44 Dose: Not Given Nitroglycerin (Nitrostat) 0.4 mg SL Q5M PRN PRN Reason: Chest Pain Ondansetron HCl (Zofran) 4 mg IV Q8H PRN PRN Reason: N/V unrelieved by Reglan Last Admin: 06/05/17 05:27 Dose: 4 mg Sodium Chloride (Sodium Chloride Flush Syringe 10 Ml) 10 ml IV PRN PRN PRN Reason: LINE FLUSH Review of Systems - Constitutional no fever, no chills, no sweats, no anorexia, no weakness - Respiratory shortness of breath, no cough, no congestion, no wheezing - Gastrointestinal abdominal pain, nausea, indigestion, belching (Feels like she needs to but isn' t able to), dyspepsia/bloating, no vomiting, no diarrhea, no constipation - Genitourinary Genitourinary: no pelvic pain, no dysuria, no hematuria - Muskuloskeletal other (Pain above ankles B/L), no neck stiffness, no neck pain, no muscle weakness, no muscle cramps - Integumentary no rash, no redness, no sores - Neurological no weakness, no parathesias, no numbness, no syncope - Endocrine no cold intolerance, no excessive thirst, no polyuria, no palpatations - Hematologic/Lymphatic easy bruising, no lymphadenopathy Exam Vital Signs Temp Pulse Resp BP Pulse Ox 98.0 F 72 16 168/90 99 06/03/17 11:53 06/03/17 11:53 06/03/17 11:53 06/03/17 11:53 06/03/17 11:53 - General physical appearance Positive: well developed, well nourished, moderate distress, moderate pain - Eyes Positive: normal occular movement - Neck Positive: trachea midline, no lymphadectomy - Respiratory Positive: normal expansion, normal respiratory effort, clear to auscultation - Cardiovascular Rhythm: regular Heart Sounds: Present: S1 & S2. Absent: gallop, systolic murmur, diastolic murmur, rub - Extremities Extremities: No edema, normal temperature, normal color, Full ROM - Abdomen Abdomen: Present: soft, tender, bowel sounds normal, distended, surgical scars. Absent: masses, rebound, guarding - Integumentary no rash - Neurologic Neurologic: alert and oriented to time, place and person, motor strength and sensation are grossly intact - Psychiatric Psychiatric: appropriate mood/affect, memory intact Results - Labs 06/03/17 12:15 06/03/17 12:15 Abnormal lab results 06/04/17 06/04/17 06/04/17 Range/Units 11:35 16:37 21:09 POC Glucose 197 H 153 H 183 H (70-105) Assessment and Plan 57 yo AAF w/ PMH of HTN, DM, hernia, and gastric bypass in 2015 presents with cramping epigastric pain. 1. Epigastric/retrosternal pain - H/o hernia and gastric bypass - Reports a similar feeling before hernia repair - + nausea, - vomiting, diarrhea, constipation - Diffuse abd tenderness to palpation - EGD done 02/2017 - normal results - Cardio following - CXR normal, Echo showed LV function is normal, EF 60-65%, mild pulmonary HTN, RV systolic pressure 35 mmHg - overall no acute processes - Per cardio, symptoms and evaluation not consistent w/ coronary pain - Continue to monitor vitals - Zofran q4 for nausea - GI consulted - symptomatic treatment, no further recommendations needed per GI - will sign off and pt to follow up in [address] Chong 2. HTN - On home BP meds, restarted - Continue to monitor BP q shift - Recommendations per hospitalist/internal 3. DM - Management per hospitalist/internal 4. Hypothyroid - Partial thyroid removal in 1975 - Continue taking Synthroid - Recommendations per hospitalist/internal Other medical conditions per primary. GI prophylaxis and DVT prophylaxis need to be started.
[2017-06-05] MEDS: PULMICORT IH SCH (08:25)
[2017-06-05] MEDS: BROVANA NEBU IH SCH (08:25)
--- NOTE | 2017-06-05 10:04 | Discharge Summary ---
Providers - Providers Date of Admission: 06/03/17 13:43 Attending physician: ESEQUIEL REBOLLAR MD 06/04/17 17:29 Consult to Physician [CONS] Routine Consulting Provider: EDGAR CHAVEZ Reason For Exam: abdominal pain, sp Bariatric surgery Place consult to:: dR CHAVEZ Notified:: A SERVICE Phone number called:: [phone] Was contact made?: Yes If yes, spoke with:: HAMMAD Time called:: 18:12 06/04/17 17:30 Consult to Physician [CONS] Routine Consulting Provider: PATRICIO TOTH Reason For Exam: abdominal pain, sp Bariatric surgery Place consult to:: GI Notified:: A SERVICE Phone number called:: [phone] Was contact made?: Yes If yes, spoke with:: MICHAEL Time called:: 18:03 Primary care physician: [facility] [place] BAND SAWYER Hospitalization Condition: Stable Hospital course: 57 YO Female with SLE(Not currently on medication), HTN, GERD, DM, Asthma, Hypothyroid, presents to ED for evaluation. She presented complaining of epigastric pain. She had the pain on and off since she had bariatric surgery years ago. She was seen by cardiology while she was in hospital were deemed that her pain was most likely from her GI tract and not cardiac in origin. She' ll also seen by gastroenterology and bariatric surgery. The case was reviewed and was found that she actually had a recent EGD which was benign. Patient had a lot of anxiety. And she was advised to follow-up with psychiatrist for better treatment of anxiety disorder. Because her symptoms are most likely psychosomatic since she's had extensive workup which has been benign.She was given a rx for an anxiolytic and pain medication prior to dc Discharge diagnoses GERD Abdominal pain Anxiety disorder Diabetes Hypertension Disposition: DC-01 TO HOME OR SELFCARE Time spent for discharge: 33 minutes Core Measure Documentation - Palliative Care Palliative Care/ Comfort Measures: Not Applicable - Core Measures Any of the following diagnoses?: none Exam - Constitutional Vitals: Temp Pulse Resp BP Pulse Ox 98.5 F 58 L 16 153/75 100 06/05/17 08:12 06/05/17 08:38 06/05/17 08:38 06/05/17 08:12 06/05/17 08:25 General appearance: Present: no acute distress, well-nourished - EENT Eyes: Present: PERRL ENT: hearing intact, clear oral mucosa - Neck Neck: Present: supple, normal ROM - Respiratory Respiratory effort: normal Respiratory: bilateral: CTA - Cardiovascular Heart Sounds: Present: S1 & S2. Absent: rub, click - Extremities Extremities: pulses symmetrical, No edema Peripheral Pulses: within normal limits - Abdominal General gastrointestinal: Present: soft, non-tender, non-distended, normal bowel sounds Female genitourinary: Present: normal - Integumentary Integumentary: Present: clear, warm, dry - Musculoskeletal Musculoskeletal: gait normal, strength equal bilaterally - Psychiatric Psychiatric: appropriate mood/affect, intact judgment & insight - Neurologic Neurologic: CNII-XII intact, moves all extremities Plan Follow up with: АЛЕКСАНДР PRIETO MD [Staff Physician] - 7 Days PATRICIO TOTH MD [Staff Physician] - 7 Days PRIMARY CARE, [Primary Care Provider] - 3-5 Days Forms: Discharge Signature Page Prescriptions: AtorvaSTATin [Lipitor] 40 mg PO QHS #30 tablet traZODone [Desyrel] 50 mg PO QHS #30 tab ALPRAZolam [Xanax TAB] 1 mg PO TID PRN #14 tablet PRN Reason: Anxiety Carvedilol [Coreg] 6.25 mg PO QDAY #60 tablet Esomeprazole Magnesium [NexIUM] 40 mg PO QDAY #30 capsule. Folic Acid [Folvite] 1 mg PO DAILY #30 tablet HYDROcodone/APAP 10-325 [[place] 10-325 mg TAB] 1 each PO BID #14 tablet Levothyroxine [Synthroid] 150 mcg PO QAM@0600 #30 tablet
--- NOTE | 2017-06-05 10:07 | Gastroenterology Consultation ---
History of Present Illness - Reason for Consult Consult date: 06/05/17 abdominal pain, s/p bariatric surgery Requesting physician: ESEQUIEL REBOLLAR - History of Present Illness Patient is a 57 y/o with PMH of SLE, HTN, GERD, DM, Asthma, and hypothyroid who presented to the ED for c/o CP, SOB, and epigastric pain. She has a complicated surgical hx with a fundoplication followed by a gastric bypass in 2008, to which she had continued drainage from her umbilicus with abd pain leading to a laparoscopy in 2015. Pt reports having chronic epigastric pain since gastric bypass with a recent EGD by Dr. Perez 03/18/2017 for evaluation of pain with results unremarkable. She has been followed by Dr. Chong at [facility] specialist for several years. This am pt was resting in bed. No acute distress. She states she developed burping, substernal CP associated with SOB that is described as a cramping pain which radiates to her back worsened by movement, along with her chronic epigastric pain on Saturday. Admits to a limited PO intake 2/2 early satiety with a 20lb wt loss over the last few months. Has BM x 1 daily with taking Linzess. Denies fever, N/V, dysphagia, odynophagia, diarrhea, constipation, or signs of bleeding. Past History Past Medical History: diabetes, hypertension, hypothyroidism, other (Asthma, SLE ) Past Surgical History: cholecystectomy, thyroidectomy, hysterectomy, Other ( gastric bypass, hiatal hernia repair, laparoscopy) Social history: single, lives with family. denies: smoking, alcohol abuse, prescription drug abuse Family history: CAD, diabetes, hypertension, other (SLE (sister)) Medications and Allergies Allergies Allergy/AdvReac Type Severity Reaction Status Date / Time Sulfa (Sulfonamide Allergy Shortness Verified 04/11/15 01:22 Antibiotics) of Breath Home Medications Medication Instructions Recorded Confirmed Last Taken Type ALPRAZolam [Xanax TAB] 1 mg PO TID PRN #14 tablet 06/05/17 Unknown Rx AtorvaSTATin [Lipitor] 40 mg PO QHS #30 tablet 06/05/17 Unknown Rx Carvedilol [Coreg] 6.25 mg PO QDAY #60 tablet 06/05/17 Unknown Rx Esomeprazole Magnesium [NexIUM] 40 mg PO QDAY #30 capsule. 06/05/17 Unknown Rx Folic Acid [Folvite] 1 mg PO DAILY #30 tablet 06/05/17 Unknown Rx HYDROcodone/APAP 10-325 [[place] 1 each PO BID #14 tablet 06/05/17 Unknown Rx 10-325 mg TAB] Levothyroxine [Synthroid] 150 mcg PO QAM@0600 #30 tablet 06/05/17 Unknown Rx traZODone [Desyrel] 50 mg PO QHS #30 tab 06/05/17 Unknown Rx Active Meds: Active Medications Acetaminophen (Tylenol) 650 mg PO Q4H PRN PRN Reason: Pain MILD(1-3)/Fever >100.5/PRYOR Acetaminophen/Hydrocodone Bitart ([place] 10/325) 1 each PO BID [facility] Last Admin: 06/04/17 21:28 Dose: 1 each Al Hydrox/Mg Hydrox/Simethicone (Alum-Mag Hydrox-Simeth [id number]/5ml) 30 ml PO Q4H PRN PRN Reason: Indigestion Last Admin: 06/04/17 21:28 Dose: 30 ml Albuterol (Proventil) 2.5 mg IH Q4HRT PRN PRN Reason: Shortness Of Breath Alprazolam (Xanax) 1 mg PO Q6H PRN PRN Reason: Anxiety Arformoterol Tartrate (Brovana Nebu) 15 mcg IH Q12HRT [facility] Last Admin: 06/05/17 08:25 Dose: 15 mcg Atorvastatin Calcium (Lipitor) 40 mg PO QHS [facility] Last Admin: 06/04/17 21:28 Dose: 40 mg Bisacodyl (Dulcolax) 10 mg NE QDAY PRN PRN Reason: Constipation unrelieved by MOM Budesonide (Pulmicort) 0.5 mg IH Q12HRT [facility] Last Admin: 06/05/17 08:25 Dose: 0.5 mg Carvedilol (Coreg) 6.25 mg PO QDAY [facility] Last Admin: 06/04/17 12:41 Dose: 6.25 mg Clonidine HCl (Catapres) 0.1 mg PO BID PRN PRN Reason: Hypertension Folic Acid (Folvite) 1 mg PO DAILY [facility] Last Admin: 06/04/17 12:42 Dose: 1 mg Hydromorphone HCl (Dilaudid) 0.5 mg IV Q3H PRN PRN Reason: Pain , Severe (7-10) Last Admin: 06/05/17 05:26 Dose: 0.5 mg Levothyroxine Sodium (Synthroid) 150 mcg PO QAM@0600 [facility] Last Admin: 06/05/17 05:28 Dose: 150 mcg Magnesium Hydroxide (Milk Of Magnesia) 30 ml PO Q4H PRN PRN Reason: Constipation Methylprednisolone Sodium Succinate (Solu-Medrol) 40 mg IV Q12H [facility] Last Admin: 06/05/17 02:44 Dose: Not Given Nitroglycerin (Nitrostat) 0.4 mg SL Q5M PRN PRN Reason: Chest Pain Ondansetron HCl (Zofran) 4 mg IV Q8H PRN PRN Reason: N/V unrelieved by Reglan Last Admin: 06/05/17 05:27 Dose: 4 mg Sodium Chloride (Sodium Chloride Flush Syringe 10 Ml) 10 ml IV PRN PRN PRN Reason: LINE FLUSH Review of Systems - Review of Systems All systems: negative Cardiovascular: chest pain, shortness of breath Gastrointestinal: abdominal pain, early satiety, belching Exam - Constitutional Vital Signs: Temp Pulse Resp BP Pulse Ox 98.5 F 58 L 16 153/75 100 06/05/17 08:12 06/05/17 08:38 06/05/17 08:38 06/05/17 08:12 06/05/17 08:25 General appearance: no acute distress, obese - EENT Eyes: PERRL, EOM intact ENT: hearing intact - Respiratory Respiratory: bilateral: CTA - Cardiovascular Rhythm: regular Heart Sounds: Present: S1 & S2 Extremities: No edema - Gastrointestinal General gastrointestinal: Present: soft, tender (mildly tender in epigastric area), non-distended, normal bowel sounds - Integumentary Integumentary: Present: warm, dry - Neurologic Neurological: alert and oriented x3 - Labs CBC & Chem 7: 06/03/17 12:15 06/03/17 12:15 Lab Results: Laboratory Results - last 24 hr 06/04/17 06/04/17 06/04/17 11:35 16:37 21:09 POC Glucose 197 H 153 H 183 H 06/05/17 06/05/17 05:04 09:08 POC Glucose 102 103 Assessment and Plan 1.chronic epigastric pain 2.substernal atypical CP 3.hx of gastric bypass -EGD 03/18/17 that was unremarkable by Dr. 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 Chong -will sign off
--- NOTE | 2017-06-05 10:27 | Progress Note ---
Assessment and Plan Epigastric pain Hypertension Hx of Gastric bypass Diabetes mellitus Hyperlipidemia Normal coronaries by [facility] 2014 EF 60-65% on echocardiogram this admission Conservative cardiac management. Subjective Date of service: 06/05/17 Interval history: Patient reports epigastic pain. Objective Vital Signs Temp Pulse Pulse Pulse Resp Resp Resp 06/05/17 08:38 58 L 16 06/05/17 08:26 56 L 16 06/05/17 08:25 06/05/17 08:12 98.5 F 90 18 06/05/17 08:00 56 L 06/05/17 05:26 20 06/05/17 05:06 55 L 06/05/17 01:16 97.6 F 53 L 18 06/04/17 22:00 71 06/04/17 20:30 59 L 18 06/04/17 20:25 06/04/17 20:20 60 22 06/04/17 19:47 97.7 F 72 18 06/04/17 16:31 98.3 F 56 L 20 06/04/17 14:35 06/04/17 12:41 69 06/04/17 11:55 97.5 F L 58 L 20 BP BP Pulse Ox 06/05/17 08:38 06/05/17 08:26 06/05/17 08:25 100 06/05/17 08:12 153/75 98 06/05/17 08:00 06/05/17 05:26 06/05/17 05:06 06/05/17 01:16 140/75 97 06/04/17 22:00 06/04/17 20:30 06/04/17 20:25 98 06/04/17 20:20 06/04/17 19:47 123/100 99 06/04/17 16:31 164/72 100 06/04/17 14:35 100 06/04/17 12:41 149/67 06/04/17 11:55 149/67 99 - Physical Examination General: No Apparent Distress HEENT: Positive: PERRL Neck: Positive: trachea midline Cardiac: Positive: Reg Rate and Rhythm
[2017-06-05] MEDS: NORCO 10/325 PO SCH (10:33)
[2017-06-05] MEDS: COREG PO SCH (10:34)
[2017-06-05] MEDS: FOLVITE PO SCH (10:34)
--- NOTE | 2017-06-05 11:56 | Consultation ---
History of Present Illness Consult date: 06/05/17 Reason for consult: abdominal pain Chief complaint: Cramping epigastric/retrosternal pain. - History of present illness History of present illness: 57 yo AAF with PMH of HTN, DM, hernia, and gastric bypass in 2008 presents for cramping epigastric pain. Pt states it feels like a chest pain that radiates to the back. Pain began on Saturday night/Saturday morning and pt presented to the hospital on Saturday. Pt also feels like she is having increased amounts of gas and bloating. While at home, she tried Nexium, Antacids, and laxatives with minimal relief. C/o nausea, denies constipation, diarrhea, or vomiting. Pt states she has not been taking in much food or liquid since the pain began. States that she has not felt this pain since her bariatric surgery, but before the procedure she did have a hiatal hernia and had a similar pain with cramping and indigestion. Pt reports mild shortness of breath. Past History Past Medical History: diabetes, hypertension, hypothyroidism, other (Asthma, SLE ) Past Surgical History: cholecystectomy, thyroidectomy, hysterectomy, Other (lap gastric bypass 2008, lap Hiatal hernia repair 2012, EGD:2015:1-2cm hiatal hernia GJ 40, pouch 40, Lap PJ, umbilical hernia repair 2015, 2016: EGD no hernia mentioned) Social history: single, lives with family. denies: smoking, alcohol abuse, prescription drug abuse Family history: CAD, diabetes, hypertension, other (SLE (sister)) Medications and Allergies Allergies Allergy/AdvReac Type Severity Reaction Status Date / Time Sulfa (Sulfonamide Allergy Shortness Verified 04/11/15 01:22 Antibiotics) of Breath Home Medications Medication Instructions Recorded Confirmed Last Taken Type ALPRAZolam [Xanax TAB] 1 mg PO TID PRN #14 tablet 06/05/17 Unknown Rx AtorvaSTATin [Lipitor] 40 mg PO QHS #30 tablet 06/05/17 Unknown Rx Carvedilol [Coreg] 6.25 mg PO QDAY #60 tablet 06/05/17 Unknown Rx Esomeprazole Magnesium [NexIUM] 40 mg PO QDAY #30 capsule. 06/05/17 Unknown Rx Folic Acid [Folvite] 1 mg PO DAILY #30 tablet 06/05/17 Unknown Rx HYDROcodone/APAP 10-325 [[place] 1 each PO BID #14 tablet 06/05/17 Unknown Rx 10-325 mg TAB] Levothyroxine [Synthroid] 150 mcg PO QAM@0600 #30 tablet 06/05/17 Unknown Rx traZODone [Desyrel] 50 mg PO QHS #30 tab 06/05/17 Unknown Rx Active Meds: Active Medications Acetaminophen (Tylenol) 650 mg PO Q4H PRN PRN Reason: Pain MILD(1-3)/Fever >100.5/PRYOR Acetaminophen/Hydrocodone Bitart ([place] 10/325) 1 each PO BID [facility] Last Admin: 06/05/17 10:33 Dose: 1 each Al Hydrox/Mg Hydrox/Simethicone (Alum-Mag Hydrox-Simeth [phone]/5ml) 30 ml PO Q4H PRN PRN Reason: Indigestion Last Admin: 06/04/17 21:28 Dose: 30 ml Albuterol (Proventil) 2.5 mg IH Q4HRT PRN PRN Reason: Shortness Of Breath Alprazolam (Xanax) 1 mg PO Q6H PRN PRN Reason: Anxiety Arformoterol Tartrate (Brovana Nebu) 15 mcg IH Q12HRT [facility] Last Admin: 06/05/17 08:25 Dose: 15 mcg Atorvastatin Calcium (Lipitor) 40 mg PO QHS [facility] Last Admin: 06/04/17 21:28 Dose: 40 mg Bisacodyl (Dulcolax) 10 mg MD QDAY PRN PRN Reason: Constipation unrelieved by MOM Budesonide (Pulmicort) 0.5 mg IH Q12HRT [facility] Last Admin: 06/05/17 08:25 Dose: 0.5 mg Carvedilol (Coreg) 6.25 mg PO QDAY [facility] Last Admin: 06/05/17 10:34 Dose: 6.25 mg Clonidine HCl (Catapres) 0.1 mg PO BID PRN PRN Reason: Hypertension Folic Acid (Folvite) 1 mg PO DAILY [facility] Last Admin: 06/05/17 10:34 Dose: 1 mg Hydromorphone HCl (Dilaudid) 0.5 mg IV Q3H PRN PRN Reason: Pain , Severe (7-10) Last Admin: 06/05/17 05:26 Dose: 0.5 mg Levothyroxine Sodium (Synthroid) 150 mcg PO QAM@0600 [facility] Last Admin: 06/05/17 05:28 Dose: 150 mcg Magnesium Hydroxide (Milk Of Magnesia) 30 ml PO Q4H PRN PRN Reason: Constipation Nitroglycerin (Nitrostat) 0.4 mg SL Q5M PRN PRN Reason: Chest Pain Ondansetron HCl (Zofran) 4 mg IV Q8H PRN PRN Reason: N/V unrelieved by Reglan Last Admin: 06/05/17 05:27 Dose: 4 mg Sodium Chloride (Sodium Chloride Flush Syringe 10 Ml) 10 ml IV PRN PRN PRN Reason: LINE FLUSH Trazodone HCl (Desyrel) 50 mg PO QHS [facility] Review of Systems - Constitutional fatigue, weakness, no fever, no chills, no sweats - Cardiovascular no chest pain, no palpitations, no rapid/irregular heart beat, no edema, no syncope, no lightheadedness - Respiratory shortness of breath, no congestion, no wheezing - Gastrointestinal abdominal pain, nausea, indigestion, belching, no vomiting, no diarrhea, no constipation - Muskuloskeletal no neck stiffness, no neck pain, no muscle weakness, no muscle cramps - Integumentary no rash, no redness, no sores - Neurological no weakness, no parathesias, no numbness, no syncope - Hematologic/Lymphatic easy bruising, no easy bleeding, no lymphadenopathy Exam Vital Signs Temp Pulse Resp BP Pulse Ox 98.0 F 72 16 168/90 99 06/03/17 11:53 06/03/17 11:53 06/03/17 11:53 06/03/17 11:53 06/03/17 11:53 - General physical appearance Positive: well developed, well nourished, moderate distress - Eyes Positive: normal occular movement - Neck Positive: trachea midline, no lymphadectomy - Respiratory Positive: normal expansion, normal respiratory effort, clear to auscultation - Cardiovascular Rhythm: regular Heart Sounds: Present: S1 & S2. Absent: gallop, systolic murmur, diastolic murmur - Extremities Extremities: no ischemia, No edema, normal temperature, normal color, Full ROM - Abdomen Abdomen: Present: soft, tender, bowel sounds normal, surgical scars (Healed; Clean and dry). Absent: distended, rebound, guarding - Integumentary no rash - Neurologic Neurologic: alert and oriented to time, place and person, motor strength and sensation are grossly intact - Psychiatric Psychiatric: appropriate mood/affect, intact judgment & insight, memory intact Results - Labs 06/03/17 12:15 06/03/17 12:15 Abnormal lab results 06/04/17 06/04/17 06/04/17 Range/Units 11:35 16:37 21:09 POC Glucose 197 H 153 H 183 H (70-105) Assessment and Plan 57 yo AAF w/ PMH of HTN, DM, hx of hiatal hernia, and gastric bypass in 2008 presents with cramping epigastric pain. 1. Epigastric/retrosternal pain GI vs. Cardio - H/o hiatal hernia hernia and gastric bypass - Reports a similar feeling before hernia repair - + nausea, - vomiting, diarrhea, constipation - EGD done 02/2017 - no mention of hiatal hernia. -to further investigate possible reflux / cause of pain: Rec: upper GI series. hx of gastric bypass: rec vit. studies: B, D - Cardio following - CXR normal, Echo showed LV function is normal, EF 60-65%, mild pulmonary HTN, RV systolic pressure 35 mmHg - overall no acute processes - Per cardio, symptoms and evaluation not consistent w/ coronary pain - Continue to monitor vitals - Zofran q4 for nausea - GI consulted - symptomatic treatment, no further recommendations needed per GI - will sign off and pt to follow up in [address] Chong 2. HTN - On home BP meds, restarted - Continue to monitor BP q shift - Recommendations per hospitalist/internal 3. DM - Management per hospitalist/internal 4. Hypothyroid - Partial thyroid removal in 1975 for hyperthyroidism, caused hypothyroidism - Continue taking Synthroid - Recommendations per hospitalist/internal Other medical conditions per primary. GI prophylaxis and DVT prophylaxis need to be started.
[2017-06-05 12:27] VITALS: BP 146/78
[2017-06-05] MEDS ORDERED: DESYREL PO SCH (22:00)
== END 2017-06-05 14:00 | disposition home or self-care (01) | DRG 392 ==
LOC: ED 11:44 → 4A 13:43
PROVIDERS: ADMIT Internal Medicine; ATTEND Internal Medicine
PROC: 3E0234Z Introduction of Serum, Toxoid and Vaccine into Muscle, Percutaneous Approach (ICD-10-PCS; principal; 2017-06-04)
DX: K21.9 Gastro-esophageal reflux disease without esophagitis (principal); I24.9 Acute ischemic heart disease, unspecified; M32.9 Systemic lupus erythematosus, unspecified; E11.9 Type 2 diabetes mellitus without complications; I10 Essential (primary) hypertension; E78.5 Hyperlipidemia, unspecified; J45.909 Unspecified asthma, uncomplicated; I34.0 Nonrheumatic mitral (valve) insufficiency; E03.9 Hypothyroidism, unspecified; Z90.89 Acquired absence of other organs; Z98.84 Bariatric surgery status; Z83.3 Family history of diabetes mellitus; Z82.49 Family history of ischemic heart disease and other diseases of the circulatory system; Z88.2 Allergy status to sulfonamides; Z79.899 Other long term (current) drug therapy; Z23 Encounter for immunization
CPT/HCPCS: 36415; 71010; 80053; 80061; 81001; 82962; 83036; 83690; 83880; 84484; 85025; 85379; 85610; 85730; 90686; 90732; 93005; 93010; 93306; 94640; 96374; 96375; A9270-GY; J1170; J2405; J2920

== ENCOUNTER 2017-08-15 15:58 | Emergency (ER) | payer MEDICARE ==
[2017-08-15 16:13] VITALS: BP 164/94
[2017-08-15 17:39] LABS: BUN/Creatinine Ratio 13; Blood Urea Nitrogen 14 mg/dL (7-17); Calcium 8.4 mg/dL (8.4-10.2); Hemolysis Index 8
[2017-08-15 17:40] LABS: Basophils % (Auto) 0.7 % (0.0-1.8); Eosinophils # (Auto) 0.1 K/mm3 (0.0-0.4); Eosinophils % (Auto) 2.6 % (0.0-4.3); Hemoglobin 11.2 gm/dl (10.1-14.3); Lymphocytes # (Auto) 1.2 K/mm3 (1.2-5.4); Lymphocytes % (Auto) 30.7 % (13.4-35.0); Mean Corpuscular HGB Conc 33 % (30-34); Mean Corpuscular Hemoglobin 28 pg (28-32); Mean Corpuscular Volume 85 fl (79-97); Monocytes # (Auto) 0.4 K/mm3 (0.0-0.8); Monocytes % (Auto) 10.7 % (0.0-7.3); Platelet Count 186 K/mm3 (140-440); Red Blood Count 3.99 M/mm3 (3.65-5.03); Red Cell Distribution Width 13.8 % (13.2-15.2)
--- NOTE | 2017-08-16 15:32 | XRay Report ---
Chest 2 views: Compared to 06/03/17. Findings: Normal cardiomediastinal silhouette. Trachea is midline. No consolidation, pneumothorax or pleural effusion. Impression: No acute cardiopulmonary findings.
== END 2017-08-15 19:20 | disposition left against medical advice (07) ==
LOC: ED 15:58
DX: R06.02 Shortness of breath (principal); Z53.21 Procedure and treatment not carried out due to patient leaving prior to being seen by health care provider
CPT/HCPCS: 36415; 71046; 80048; 84484; 85025; 93005; 93010

== ENCOUNTER 2018-09-24 14:56 | Inpatient (IN) | payer MEDICARE ==
--- NOTE | 2018-09-24 15:07 | Emergency Department Report ---
Blank Doc - Documentation Documentation: This is a 58-year-old female that presents with left sided chest pain with rad iation to left upper arm. Also has some SOB. Described chest pain as cramping and pressure. This initial assessment/diagnostic orders/clinical plan/treatment(s) is/are subject to change based on patient's health status, clinical progression and re- assessment by fellow clinical providers in the ED. Further treatment and workup at subsequent clinical providers discretion. Patient/guardians urged not to elope from the ED as their condition may be serious if not clinically assessed and managed. Initial orders include: 1- Patient sent to MAIN ED for further evaluation and treatment 2- EKG 3- Labs 4- CXR
[2018-09-24 15:51] LABS: Alanine Aminotransferase 14 units/L (7-56); Albumin 4.1 g/dL (3.9-5); BUN/Creatinine Ratio 8; Blood Urea Nitrogen 8 mg/dL (7-17); Calcium 9.2 mg/dL (8.4-10.2); Hemolysis Index 0
[2018-09-24 16:00] LABS: INR 1.01 (0.87-1.13)
[2018-09-24 16:01] LABS: Partial Thromboplastin Time 28.6 Sec. (24.2-36.6)
[2018-09-24 16:04] LABS: Basophils % (Auto) 0.8 % (0.0-1.8); Eosinophils # (Auto) 0.1 K/mm3 (0.0-0.4); Eosinophils % (Auto) 2.1 % (0.0-4.3); Hematocrit 34.1 % (30.3-42.9); Hemoglobin 11.3 gm/dl (10.1-14.3); Lymphocytes # (Auto) 1.2 K/mm3 (1.2-5.4); Lymphocytes % (Auto) 38.2 % (13.4-35.0); Mean Corpuscular HGB Conc 33 % (30-34); Mean Corpuscular Volume 83 fl (79-97); Monocytes # (Auto) 0.3 K/mm3 (0.0-0.8); Monocytes % (Auto) 8.8 % (0.0-7.3); Platelet Count 172 K/mm3 (140-440); Red Blood Count 4.09 M/mm3 (3.65-5.03); Red Cell Distribution Width 14.3 % (13.2-15.2)
[2018-09-24] MEDS ORDERED: NACL 0.9% 500 ML 500 ML IV ONE (16:49)
[2018-09-24] MEDS ORDERED: NITROSTAT SL PRN (16:49)
[2018-09-24] MEDS ORDERED: PEPCID IV ONE (16:49)
[2018-09-24] MEDS ORDERED: TYLENOL PO ONE (16:49)
[2018-09-24] MEDS ORDERED: APRESOLINE IV ONE (16:51)
--- NOTE | 2018-09-24 16:52 | Emergency Department Report ---
ED General Adult HPI - General Chief complaint: Chest Pain Stated complaint: CHEST PAIN Time Seen by Provider: 09/24/18 15:05 Source: patient, RN notes reviewed, old records reviewed Mode of arrival: Ambulatory Limitations: No Limitations - History of Present Illness Initial comments: Cardiology: Dr. Ackerman This is a 58-year-old female. The patient has a past history of obesity, hypertension, diabetes, GERD, hypothyroidism, cholecystectomy The patient presents to the emergency room with 2 complaints. Her first complaint is left-sided chest pain. She reports that at 1:00 PM, she developed cramping left-sided hand pain, arm pain, which radiated onto her left chest and breast. The pain is described as cramping, without vomiting or diaphoresis. The patient may complain some shortness of breath. Pain is still present. It is mostly in the left anterior chest wall. It does not radiate to the back, arms or neck. There is no vomiting. There is no diaphoresis. Patient [place] Patient was evaluated by her cardiology team and December 2017, who indicated "no further cardiac workup as needed." Cardiology team felt that her symptoms of chest tightness and shortness of breath triggered by elevated blood pressure. In the past, patient has had a negative CTA of the chest, and was found to have normal coronary arteries in 2014, as for her cardiology team's documentation. Patient has a second complaint of left arm, left leg weakness and numbness. This started at 2:00. It lasted for a few seconds to a few minutes. It is now resolved. It did not radiate anywhere. The patient currently denies headache, neck pain, lower abdominal pain, bladder or bowel retention, incontinence, saddle anesthesia. -: Sudden Location: chest, left, upper extremity, lower extremity Radiation: extremity (weakness and numbness radiates into each extremity distally) Severity scale (0 -10): 8 Quality: aching Consistency: intermittent Improves with: none, other (chest wall pain increases with palpation. Extremity weakness, numbness does not have any exacerbating or relieving factors) Worsens with: none Associated Symptoms: chest pain, weakness - Related Data Home Medications Medication Instructions Recorded Confirmed Last Taken RX: ALPRAZolam [Xanax TAB] 1 mg PO Q8H PRN 12/19/17 12/19/17 Unknown RX: Carvedilol [Coreg] 6.25 mg PO BID 12/19/17 12/19/17 Unknown RX: Cyanocobalamin [Vitamin B-12] 1,000 mcg IM QMONTH 12/19/17 12/19/17 Unknown RX: Ergocalciferol [Vitamin D2] 1 cap PO QWEEK 12/19/17 12/19/17 12/11/17 RX: Levothyroxine Sodium 137 mcg PO QDAY 12/19/17 12/19/17 Unknown [Synthroid] RX: Montelukast [Singulair] 10 mg PO QPM 12/19/17 12/19/17 Unknown RX: Spironolactone [Aldactone] 25 mg PO QDAY 12/19/17 12/19/17 Unknown Previous Rx's Medication Instructions Recorded Last Taken Type RX: Folic Acid [Folvite] 1 mg PO DAILY #30 tablet 06/05/17 Unknown Rx NIFEdipine XL [Procardia Xl] 30 mg PO QDAY #30 tablet 12/21/17 Unknown Rx Allergies Allergy/AdvReac Type Severity Reaction Status Date / Time Sulfa (Sulfonamide Allergy Shortness Verified 04/11/15 01:22 Antibiotics) of Breath ED Review of Systems ROS: Stated complaint: CHEST PAIN Other details as noted in HPI Constitutional: weakness. denies: fever, malaise Eyes: denies: eye discharge ENT: denies: epistaxis Respiratory: denies: cough Cardiovascular: chest pain. denies: syncope Gastrointestinal: denies: abdominal pain, nausea, vomiting Genitourinary: denies: dysuria Musculoskeletal: arthralgia, myalgia Skin: denies: lesions Neurological: weakness, numbness, paresthesias, abnormal gait Psychiatric: denies: anxiety ED Past Medical Hx - Past Medical History Previous Medical History?: Yes Hx Hypertension: Yes Hx CVA: No Hx Heart Attack/AMI: No Hx Congestive Heart Failure: No Hx Diabetes: Yes Hx Deep Vein Thrombosis: No Hx Pulmonary Embolism: No Hx GERD: Yes Hx Liver Disease: No Hx Renal Disease: No Hx Sickle Cell Disease: No Hx Arthritis: No Hx Headaches / Migraines: No Hx Seizures: No Hx Kidney Stones: No Hx Psychiatric Treatment: No Hx Asthma: Yes (no inhaler for years) Hx COPD: No Hx Tuberculosis: No Hx Dementia: No Hx HIV: No Additional medical history: Lupus, hypothyroidism - Surgical History Past Surgical History?: Yes Hx Coronary Stent: No Hx Open Heart Surgery: No Hx Pacemaker: No Hx Internal Defibrillator: No Hx Cholecystectomy: Yes Hx Appendectomy: No Hx Breast Surgery: No Additional Surgical History: Gastric bypass, thyroid surgery, partial hysterectomy, section - Social History Smoking Status: Never Smoker Substance Use Type: None - Medications Home Medications: Home Medications Medication Instructions Recorded Confirmed Last Taken Type RX: Folic Acid [Folvite] 1 mg PO DAILY #30 tablet 06/05/17 12/19/17 Unknown Rx RX: ALPRAZolam [Xanax TAB] 1 mg PO Q8H PRN 12/19/17 12/19/17 Unknown History RX: Carvedilol [Coreg] 6.25 mg PO BID 12/19/17 12/19/17 Unknown History RX: Cyanocobalamin [Vitamin B-12] 1,000 mcg IM QMONTH 12/19/17 12/19/17 Unknown History RX: Ergocalciferol [Vitamin D2] 1 cap PO QWEEK 12/19/17 12/19/17 12/11/17 History RX: Levothyroxine Sodium 137 mcg PO QDAY 12/19/17 12/19/17 Unknown History [Synthroid] RX: Montelukast [Singulair] 10 mg PO QPM 12/19/17 12/19/17 Unknown History RX: Spironolactone [Aldactone] 25 mg PO QDAY 12/19/17 12/19/17 Unknown History NIFEdipine XL [Procardia Xl] 30 mg PO QDAY #30 tablet 12/21/17 Unknown Rx ED Physical Exam - General Limitations: No Limitations General appearance: alert, in no apparent distress - Head Head exam: Present: atraumatic, normocephalic - Eye Eye exam: Present: normal appearance, EOMI. Absent: nystagmus - ENT ENT exam: Present: normal exam, normal orophraynx, mucous membranes moist, normal external ear exam - Neck Neck exam: Present: normal inspection, full ROM - Respiratory Respiratory exam: Present: normal lung sounds bilaterally, chest wall tenderness, other (reproducible chest wall tenderness. Chaperoned by nurse Minerva Dee). Absent: respiratory distress, wheezes, rales, rhonchi, stridor - Cardiovascular Cardiovascular Exam: Present: regular rate, normal rhythm. Absent: systolic murmur, diastolic murmur, rubs, gallop - GI/Abdominal GI/Abdominal exam: Present: soft. Absent: distended, tenderness, guarding, rebound, rigid, pulsatile mass - Extremities Exam Extremities exam: Present: normal inspection, full ROM, other (2+ pulses noted in the bilateral upper, lower extremities. Compartments soft. No long bony tenderness. The pelvis is stable.). Absent: pedal edema, joint swelling, calf tenderness - Back Exam Back exam: Present: normal inspection, full ROM. Absent: tenderness, CVA tenderness (R), paraspinal tenderness, vertebral tenderness - Neurological Exam Neurological exam: Present: alert, oriented X3, CN II-XII intact, normal gait, other (Extraocular movements intact. Tongue midline. No facial droop. Facial sensation intact to light touch in the V1, V2, V3 distribution bilaterally. 5 and 5 strength in 4 extremities.. Sensation is intact to light touch in 4 extremities.). Absent: motor sensory deficit - Psychiatric Psychiatric exam: Present: normal affect, normal mood - Skin Skin exam: Present: warm, dry, intact, normal color. Absent: rash ED Course Vital Signs 09/24/18 09/24/18 09/24/18 15:06 17:03 17:16 Temperature 98.4 F Pulse Rate 72 68 59 L Respiratory 18 13 10 L Rate Blood Pressure 196/73 140/68 Blood Pressure [Right] O2 Sat by Pulse 100 Oximetry 09/24/18 09/24/18 09/24/18 17:30 17:45 18:00 Temperature Pulse Rate 61 52 L 54 L Respiratory 13 8 L 11 L Rate Blood Pressure 140/68 146/67 146/67 Blood Pressure [Right] O2 Sat by Pulse Oximetry 09/24/18 09/24/18 09/24/18 18:16 18:30 18:45 Temperature Pulse Rate 70 56 L 54 L Respiratory 12 11 L 10 L Rate Blood Pressure 134/64 134/64 128/67 Blood Pressure [Right] O2 Sat by Pulse Oximetry 09/24/18 09/24/18 09/24/18 18:51 18:53 19:26 Temperature 98.4 F Pulse Rate 56 L Respiratory 20 18 Rate Blood Pressure Blood Pressure 148/70 [Right] O2 Sat by Pulse 100 Oximetry - Reevaluation(s) Reevaluation #1: 03/06/19 17:53 Differential diagnosis, including not limited to: Acute coronary syndrome, GERD, gastritis, costochondritis, aortic dissection, transient ischemic attack, pulmonary embolus, anxiety, conversion disorder Assessment and plan: 58-year-old female with chest pain, hypertension, resolved neurologic complaints. Patient not tachycardic or hypoxic. No lower extremity evidence to suggest DVT. Given her complaint of chest pain resolve neurologic issues, we will obtain emergent CT angiogram of the chest to exclude pulmonary embolus, aortic disease. However, I doubt aortic disease, as the patient has equal pulses in the upper, lower extremities, and appropriate x-ray of the chest. She is also known to have chronic hypertension. The patient currently has an NIH score of 0. Therefore, she does not merit tPA. Therefore, she does not merit emergent angiogram of the head and neck. Furthermore, with her complaint of chest pain and neurologic symptoms, an angiogram of the aorta is mandated to exclude aortic disease. We will treat her pain, treat her blood pressure, and reassess after her initial data points. From a cardiovascular risk standpoint, was recently evaluated by her cardiology team, and they felt her to be at low risk for major adverse cardiac event. Her EKG is unchanged from prior. However, with her endorsement of neurologic symptoms, she may require admission to the hospital for TIA evaluation. Reevaluation #2: 09/24/18 21:03 CT scan of the brain is negative for acute disease. CT scan of the chest is pending interpretation. Reevaluation #3: 09/24/18 22:39 CT scan of the chest is negative for acute disease. On reassessment, the patient is resting comfortably in stretcher, and in no acute distress. Hospital physician, Dr. Saeed Zeng accept the patient to the medical service for TIA evaluation ED Medical Decision Making - Lab Data Result diagrams: 09/24/18 15:16 09/24/18 15:16 Vital Signs 09/24/18 15:06 Temperature 98.4 F Pulse Rate 72 Respiratory 18 Rate Blood Pressure 196/73 O2 Sat by Pulse 100 Oximetry Labs 09/24/18 09/24/18 09/24/18 15:16 15:16 15:16 WBC 3.3 L RBC 4.09 Hgb 11.3 Hct 34.1 MCV 83 MCH 28 MCHC 33 RDW 14.3 Plt Count 172 Lymph % (Auto) 38.2 H Ralls % (Auto) 8.8 H Eos % (Auto) 2.1 Baso % (Auto) 0.8 Lymph # 1.2 Ralls # 0.3 Eos # 0.1 Baso # 0.0 Seg Neutrophils % 50.1 Seg Neutrophils # 1.6 L PT 13.9 INR 1.01 APTT 28.6 Sodium 141 Potassium 4.0 Chloride 103.5 Carbon Dioxide 26 Anion Gap 16 BUN 8 Creatinine 1.0 Estimated GFR > 60 BUN/Creatinine Ratio 8 Glucose 116 H Calcium 9.2 Total Bilirubin 0.30 AST 19 ALT 14 Alkaline Phosphatase 144 H Troponin T < 0.010 Total Protein 7.6 Albumin 4.1 Albumin/Globulin Ratio 1.2 - EKG Data -: EKG Interpreted by Me EKG shows normal: sinus rhythm Rate: normal - EKG Data 09/24/18 17:55 Sinus rhythm, 65 bpm, normal axis, left ventricular hypertrophy, biphasic T-wave in V2, abnormal EKG, not consistent with ST elevation myocardial infarction, appears to be unchanged from prior EKG from December 2017. - Radiology Data Radiology results: pending, report reviewed, image reviewed X-ray of the chest is negative for acute disease Critical care attestation.: If time is entered above; I have spent that time in minutes in the direct care of this critically ill patient, excluding procedure time. ED Disposition Clinical Impression: Chest pain, TIA (transient ischemic attack) Disposition: OP ADMIT IP TO THIS HOSP Is pt being admited?: Yes Does the pt Need Aspirin: Yes Condition: Stable Instructions: Chest Pain (ED) Referrals: SANTOS HOLLISBUFFALO MD ROSS [Primary Care Provider] - 3-5 Days - Assessment Assessment Interval: Baseline - Level of Consciousness 1a. Level of Consciousness: alert/keenly responsive - LOC Questions 1b. LOC Questions: answers both correctly - LOC Command 1c. LOC Commands: performs tasks correctly - Best Gaze 2. Best Gaze: normal - Visual 3. Visual: no visual loss - Facial Palsy 4. Facial Palsy: normal symmetrical movement - Motor Arm 5b. Motor Arm Right: no drift 5a. Motor Arm Left: no drift - Motor Leg 6b. Motor Leg Right: no drift 6a. Motor Leg Left: no drift - Limb Ataxia 7. Limb Ataxia: absent - Sensory 8. Sensory: normal - Best Language 9. Best Language: no aphasia - Dysarthria 10. Dysarthria: normal - Extinction and Inattention 11. Extinction/Inattention: no abnormality - Scoring Total Score: 0 Stroke Severity: No Stroke Symptoms
--- NOTE | 2018-09-24 17:08 | XRay Report ---
PROCEDURE: Chest. TECHNIQUE: PA and lateral views. HISTORY: Chest pain. COMPARISONS: Chest 12/19/2017. FINDINGS: The heart and mediastinum appear normal. The lungs are clear and well-expanded. There are no pleural effusions. The soft tissues and regional skeleton are unremarkable. IMPRESSION: No evidence of acute disease. This document is electronically signed by Grupo Reynolds MD., September 24 2018 05:06:46 PM ET
--- NOTE | 2018-09-24 20:41 | Cat Scan Report ---
PROCEDURE: CT HEAD/BRAIN WO CON TECHNIQUE: CT images of the head were obtained without the use of IV contrast HISTORY: cp with tia symptoms COMPARISONS: None available FINDINGS: No CT evidence of intracranial mass, hemorrhage, acute territorial infarction, or hydrocephalus. The intracranial arteries are symmetric in density. Calvarium is intact. Visualized paranasal sinuses and mastoids are aerated. IMPRESSION: No CT evidence of acute abnormality. This document is electronically signed by Lina James MD., September 24 2018 08:39:46 PM ET
--- NOTE | 2018-09-24 22:34 | Cat Scan Report ---
PROCEDURE: CT ANGIOGRAM OF THE CHEST FOR PULMONARY EMBOLISM TECHNIQUE: Computerized axial tomographic angiography of the chest and pulmonary arteries was perfor med after the IV injection of iodinated nonionic contrast. The image data was postprocessed using max imum intensity projection (MIP) and 2-dimensional multiplanar reformatted (MPR) techniques. The exami nation is specifically tailored to the evaluation of the pulmonary arteries per clinical request. Au tomated exposure control, adjustment of mA and/or kV according to patient size, or iterative reconstr uction dose optimization techniques were utilized. CPT G9637, 49651 HISTORY: Shortness of breath R06.02, chest pain unspecified R07.9 , COMPARISONS: None . FINDINGS: Heart and pericardium: No pericardial effusion or thickening. Thoracic aorta: Normal. Pulmonary vasculature: Normal. No pulmonary emboli. Lymph nodes: No enlarged thoracic lymph nodes. Lungs: Normal. Pleural space: No effusion, thickening, or pneumothorax. Musculoskeletal structures: No significant abnormality. Upper abdominal structures: No significant abnormality. IMPRESSION: No evidence of pulmonary emboli. This document is electronically signed by Lina James MD., September 24 2018 10:31:56 PM ET
[2018-09-24] MEDS ORDERED: BABY ASPIRIN PO ONE (22:40)
[2018-09-24] MEDS ORDERED: ZOFRAN IV PRN (23:15)
[2018-09-24] MEDS ORDERED: TYLENOL PO PRN (23:16)
[2018-09-24] MEDS ORDERED: D50W (25GM) Syringe IV PRN (23:20)
[2018-09-25] MEDS: MORPHINE IV PRN (01:05)
[2018-09-25] MEDS: HumaLOG SUB-Q SCH ×7 (01:07→22:13)
[2018-09-25 01:21] LABS: Creatine Kinase MB 1.2 ng/mL (0.0-4.0)
--- NOTE | 2018-09-25 04:29 | History and Physical Report ---
CHIEF COMPLAINT: Chest pain. Other complaints include numbness and tingling in the left upper and lower extremity. HISTORY OF PRESENT ILLNESS: The patient is a 58-year-old female who said she started having pain in the left upper extremity going upwards to her chest area. The pain started as cramping in the left upper extremity and then radiated into the chest. There was no history of diaphoresis, no history of vomiting. The patient described history of numbness and tingling in the left upper and lower extremity. Also, the patient said that there is an associated shortness of breath with no cough and there is no history of fever or chills. The patient presented for evaluation. PAST MEDICAL HISTORY: Pertinent for hypertension, diabetes mellitus, gastroesophageal reflux disease as well as lupus erythematosus and hypothyroidism. PAST SURGICAL HISTORY: Pertinent for cholecystectomy, gastric bypass surgery, thyroid surgery, partial hysterectomy, and . FAMILY HISTORY: Noncontributory. SOCIAL HISTORY: The patient does not smoke, does not drink alcohol, and does not use illicit drugs. MEDICATIONS: The patient's home medications include alprazolam or Xanax 1 mg by mouth every 8 hours as needed for anxiety, Coreg 6.25 mg by mouth twice daily, vitamin B12 1000 mcg by intramuscular injection every month, vitamin D2 one capsule by mouth every week, levothyroxine or Synthroid 137 mcg by mouth daily, Singulair 10 mg by mouth every evening, Aldactone 25 mg by mouth daily. ALLERGIES: THE PATIENT IS ALLERGIC TO SULFA DRUGS. REVIEW OF SYSTEMS: CONSTITUTIONAL: There is no fever, no chills, no diaphoresis. HEENT: There is no headache or sore throat. CARDIOVASCULAR: Chest pain is present. No orthopnea. RESPIRATORY: Shortness of breath is present. No cough. GASTROINTESTINAL: There is no nausea; no vomiting; no abdominal pain, diarrhea, or constipation. NEUROLOGICAL: Numbness in the left upper and lower extremity noted. No change in mental status. MUSCULOSKELETAL: Pain in the left upper extremity noted. No joint swelling. DERMATOLOGICAL: There is no skin rash or itching. GENITOURINARY: There is no dysuria, hematuria, or flank pain. Rest of system review is normal. PHYSICAL EXAMINATION: GENERAL: At the time of exam, the patient was found to be alert and oriented x 3, not in acute distress. VITAL SIGNS: Showed temperature of 98.4 degrees Fahrenheit, pulse of 72, respirations of 18, blood pressure 196/73, O2 sat of 100% on room air. HEENT: Showed pupils to be equal, round, and reactive to light and accommodating. Extraocular muscles are intact. NECK: Supple with no JVD or carotid bruit. CARDIOVASCULAR: Showed normal first and second heart sounds with no gallops or murmurs. RESPIRATORY: Showed good air entry on both sides of the lungs with no abnormal breath sounds. GASTROINTESTINAL: Showed abdomen to be full, soft, and nontender with no organomegaly or rigidity. NEUROLOGICAL: Showed no focal deficit. MUSCULOSKELETAL: Showed no joint swelling or tenderness. DERMATOLOGICAL: Showed no skin rash. GENITOURINARY: Showing no costovertebral angle tenderness. PERTINENT LABORATORY AND IMAGING STUDIES: The patient had CT of the head without contrast done that shows no acute intracranial lesion. Also, the patient has CT angiogram of the chest done that shows no pulmonary embolism. The patient also had a chest x-ray done that shows no acute cardiopulmonary lesion. Lab results, the patient's CBC shows slightly decreased white count of 3.3 with normal hemoglobin, normal hematocrit with CBC differential showing high lymphocyte count of 38.2% and high monocyte count of 8.8 with coagulation studies coming back unremarkable. The patient's chemistry was unremarkable. Cardiac enzymes came back normal. DIAGNOSES: 1. Chest pain. 2. Transient ischemic attack. PLAN OF CARE: 1. The patient will be admitted to telemetry. 2. The patient will have cardiac enzymes involving troponin, total CK, and CK-MB checked q. 6 hours x 2 more levels. 3. The patient will have MRI of the brain without contrast done this morning and will also have bilateral carotid Doppler done this morning. 4. The patient will be n.p.o. for Lexiscan stress test this morning. 5. The patient will have Neurology consult with Dr. Yashira Ball this morning because of TIA. 6. The patient will be on aspirin 325 mg by mouth daily and will be on Tylenol 650 mg by mouth every 4 hours for fever and headache. 7. The patient will be on IV morphine 2 mg every 3 hours as needed for pain and will be on nitro paste half inch anterior chest wall q.i.d. as well as Nitrostat 0.4 mg sublingual every 5 minutes as needed for breakthrough chest pain. 8. The patient will be on IV Zofran 4 mg every 8 hours as needed for nausea and vomiting. 9. The patient will be on oxygen by nasal cannula at 2 liters per minute. 10. The patient's DVT prophylaxis will be through sequential compressive device. JOB# [id number] OCN/NTS
[2018-09-25] MEDS: NITRO-BID 2% TP SCH ×4 (06:09→17:54)
[2018-09-25 06:15] LABS: Creatine Kinase MB 1.1 ng/mL (0.0-4.0)
[2018-09-25 06:55] LABS: Bilirubin,Urine NEG (Negative); Blood,Urine NEG (Negative); Color,Urine Colorless (Yellow); Mucus,Urine FEW /HPF; Protein,Urine <15 mg/dL mg/dL (Negative); Urobilinogen,Urine < 2.0 mg/dL (<2.0); WBC,Urine < 1.0 /HPF (0.0-6.0)
[2018-09-25] MEDS ORDERED: LEXISCAN IV ONE ×2 (10:46→10:47)
--- NOTE | 2018-09-25 13:44 | Magnetic Resonance Report ---
MRI OF THE BRAIN WITHOUT CONTRAST: HISTORY: TIA PROCEDURE: Multiplanar, multisequence MR imaging of the brain without IV contrast was performed. FINDINGS: Compared to the CT head dated 09/24/18. The brain parenchyma signal intensity and its tuttle white interface are within normal limits on all sequences. No evidence for acute ischemia, hemorrhage or mass. No chronic infarct or extra-axial fluid collection. The midline structures are central. The basal cisterns are patent. Normal ventricular size. The orbital cavities and sella turcica demonstrate no abnormality. The visualized paranasal sinuses and mastoid air cells are well aerated. IMPRESSION: Unremarkable non-enhanced MRI of the brain.
[2018-09-25] MEDS: ASPIRIN PO SCH (14:37)
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
--- NOTE | 2018-09-25 16:46 | Vascular Lab Report ---
PROCEDURE: VL CAROTID DUPLEX BILAT TECHNIQUE: Ultrasound carotid arteries with posterior color Doppler evaluation HISTORY: TIA COMPARISONS: FINDINGS: Right common carotid artery demonstrates normal sonographic appearance and vascular flow. Systolic ve locity 87 cm/s and diastolic velocity 20 cm/s. There is mild nonshadowing plaque noted right ICA. Pea k systolic velocity 116 cm/s at the mid ICA and diastolic velocity 42 cm/s. The right ECA is patent There is antegrade flow within the right vertebral Left common carotid artery demonstrates normal sonographic appearance. Peak systolic velocity 72 cm/s and diastolic velocity 21 cm/s. There is mild intimal thickening and homogeneous no shadowing plaque left ICA. Systolic velocity 85 c m/s and diastolic velocity 33 cm/s. There is antegrade flow within the left vertebral artery. Left EC A is patent IMPRESSION: Mild smooth plaque formation in the ICAs bilaterally. Less than 50% ICA stenosis range bilaterally This document is electronically signed by Fco Nuñez MD., September 25 2018 04:43:32 PM ET
--- NOTE | 2018-09-25 17:28 | Progress Note ---
Assessment and Plan - Patient Problems (1) Chest pain Current Visit: Yes Status: Acute Plan to address problem: Lexiscan negative (2) TIA (transient ischemic attack) Current Visit: Yes Status: Acute Plan to address problem: Resolved Went down for Cspine imaging studies (3) HTN (hypertension) Current Visit: Yes Status: Chronic Qualifiers: Hypertension type: essential hypertension Qualified Code(s): I10 - Essential (primary) hypertension Plan to address problem: Cont Cardura (4) Hypothyroidism (acquired) Current Visit: Yes Status: Chronic Plan to address problem: Cont Synthyroid (5) Vitamin D deficiency Current Visit: Yes Status: Acute Plan to address problem: Cont Vit D once weekly (6) DVT prophylaxis Current Visit: No Status: Acute Plan to address problem: On Lovenox Subjective Date of service: 09/25/18 Principal diagnosis: Chest pain and TIA Interval history: Symptoms resolved Objective - Constitutional Vitals: Vital Signs - 12hr 09/25/18 09/25/18 09/25/18 07:47 10:14 11:04 Temperature 98.1 F Respiratory 18 Rate Blood Pressure 129/73 159/84 O2 Sat by Pulse 100 Oximetry 09/25/18 09/25/18 09/25/18 11:05 11:08 11:10 Temperature Respiratory Rate Blood Pressure 173/86 186/100 190/86 O2 Sat by Pulse Oximetry 09/25/18 09/25/18 09/25/18 11:11 11:12 11:13 Temperature Respiratory Rate Blood Pressure 184/88 152/90 148/81 O2 Sat by Pulse Oximetry 09/25/18 11:14 Temperature Respiratory Rate Blood Pressure 147/78 O2 Sat by Pulse Oximetry General appearance: Present: no acute distress, well-nourished - EENT Eyes: PERRL, EOM intact ENT: hearing intact, clear oral mucosa Ears: bilateral: normal - Neck Neck: supple, normal ROM - Respiratory Respiratory effort: normal Respiratory: bilateral: CTA - Breasts Breasts: normal - Cardiovascular Heart rate: 78 Rhythm: regular Heart Sounds: Present: S1 & S2. Absent: gallop, rub Extremities: no ischemia, pulses intact, No edema, normal color, Full ROM - Gastrointestinal General gastrointestinal: Present: soft, non-tender, non-distended, normal bowel sounds Rectal Exam: deferred - Genitourinary Female genitourinary: normal - Integumentary Integumentary: clear, warm, dry - Musculoskeletal Musculoskeletal: 1, strength equal bilaterally - Neurologic Neurologic: moves all extremities - Psychiatric Psychiatric: memory intact, appropriate mood/affect, intact judgment & insight - Labs CBC & Chem 7: 09/24/18 15:16 09/24/18 15:16 Labs: Abnormal lab results 09/25/18 09/25/18 09/25/18 Range/Units 00:45 05:46 13:55 Total Creatine Kinase 169 H 160 H (30-135) units/L Vitamin B12 (211-911) pg/mL TSH 6.160 H (0.270-4.200) mlU/mL 09/25/18 Range/Units 13:55 Total Creatine Kinase (30-135) units/L Vitamin B12 1208 H (211-911) pg/mL TSH (0.270-4.200) mlU/mL
[2018-09-25] MEDS ORDERED: NON-FORMULARY (Levothyroxine Sodium [Synthroid] 137 MCG) PO SCH (17:30)
[2018-09-25] MEDS ORDERED: SINGULAIR PO SCH (20:00)
--- NOTE | 2018-09-25 21:36 | Treadmill Report ---
ORDERING PHYSICIAN: Susanne Matthews MD INDICATION: Chest pain. FINDINGS: There is no scintigraphic evidence of myocardial ischemia. The left ventricle is normal in size and systolic function. The left ventricular ejection fraction is measured at 76%. There is normal wall motion and wall thickening on gated imaging. CONCLUSION: Normal perfusion scan. JOB# [id number] SHAGUFTA/SONIA
[2018-09-25] MEDS: FOLVITE PO SCH (22:07)
[2018-09-25] MEDS: ALDACTONE PO SCH (22:08)
[2018-09-25] MEDS: NEURONTIN PO SCH (22:12)
[2018-09-25] MEDS: CARDURA PO SCH (22:35)
[2018-09-26] MEDS: HumaLOG SUB-Q SCH ×2 (03:50→07:19)
[2018-09-26] MEDS: NEURONTIN PO SCH ×2 (05:52→14:48)
[2018-09-26 05:56] LABS: Basophils % (Auto) 0.9 % (0.0-1.8); Eosinophils # (Auto) 0.1 K/mm3 (0.0-0.4); Eosinophils % (Auto) 3.5 % (0.0-4.3); Hematocrit 31.1 % (30.3-42.9); Hemoglobin 10.4 gm/dl (10.1-14.3); Lymphocytes # (Auto) 1.1 K/mm3 (1.2-5.4); Lymphocytes % (Auto) 34.4 % (13.4-35.0); Mean Corpuscular HGB Conc 34 % (30-34); Mean Corpuscular Volume 84 fl (79-97); Monocytes # (Auto) 0.3 K/mm3 (0.0-0.8); Monocytes % (Auto) 10.1 % (0.0-7.3); Platelet Count 175 K/mm3 (140-440); Red Blood Count 3.71 M/mm3 (3.65-5.03); Red Cell Distribution Width 14.2 % (13.2-15.2)
[2018-09-26] MEDS ORDERED: SYNTHROID PO SCH ×2 (06:00)
[2018-09-26 06:19] LABS: Alanine Aminotransferase 13 units/L (7-56); Albumin 3.5 g/dL (3.9-5); BUN/Creatinine Ratio 10; Blood Urea Nitrogen 10 mg/dL (7-17); Calcium 8.8 mg/dL (8.4-10.2); Hemolysis Index 3
[2018-09-26] MEDS: NITRO-BID 2% TP SCH ×3 (07:20→14:00)
[2018-09-26] MEDS: FOLVITE PO SCH (09:24)
[2018-09-26] MEDS: ASPIRIN PO SCH (09:24)
[2018-09-26] MEDS: ALDACTONE PO SCH (09:24)
[2018-09-26] MEDS: CARDURA PO SCH (10:32)
[2018-09-26] MEDS ORDERED: HumaLOG SUB-Q SCH (11:30)
[2018-09-26 12:31] VITALS: BP 143/65
[2018-09-26] MEDS: MORPHINE IV PRN (12:46)
--- NOTE | 2018-09-26 15:24 | Discharge Summary ---
Providers - Providers Date of Admission: 09/25/18 15:00 Date of discharge: 09/26/18 Attending physician: FERDINAND PADILLA 09/25/18 06:00 Consult to Physician [CONS] Routine Comment: Consulting Provider: DEBBIE HARDY Physician Instructions: Reason For Exam: TIA 09/25/18 11:05 Physical Therapy Evaluation and Treat [CONS] Routine Comment: Reason For Exam: TIA 09/25/18 11:06 Occupational Therapy Evaluate and Treat [CONS] Routine Comment: Reason For Exam: TIA Primary care physician: RAHEL BETANCOURT Hospitalization Condition: Stable Pertinent studies: Brain MRI -Normal Lexiscan Normal CT C spine Extensive DDD with impingement of C5/C6 nerve roots Hospital course: Assessment and Plan - Patient Problems (1) Chest pain Current Visit: Yes Status: Acute Plan to address problem: Lexiscan negative (2) TIA (transient ischemic attack) Current Visit: Yes Status: Acute Plan to address problem: Resolved Has severe DDD with impingemnt on CT C spine C5/C6 region bilaterally and also previous surgical changes. F/u with orthopedic surgeon wo has done her C Spine surgery versus Cervical collar on a regular basis. (3) HTN (hypertension) Current Visit: Yes Status: Chronic Qualifiers: Hypertension type: essential hypertension Qualified Code(s): I10 - Essential (primary) hypertension Plan to address problem: Cont Cardura (4) Hypothyroidism (acquired) Current Visit: Yes Status: Chronic Plan to address problem: Cont Synthyroid (5) Vitamin D deficiency Current Visit: Yes Status: Acute Plan to address problem: Cont Vit D once weekly Disposition: -01 TO HOME OR SELFCARE Core Measure Documentation - Palliative Care Palliative Care/ Comfort Measures: Not Applicable - Core Measures Any of the following diagnoses?: none Exam - Constitutional Vitals: Temp Pulse Resp BP Pulse Ox 98.0 F 95 H 20 143/65 94 09/26/18 12:22 09/26/18 12:22 09/26/18 12:22 09/26/18 12:22 09/26/18 12:22 General appearance: Present: no acute distress, well-nourished - EENT Eyes: Present: PERRL ENT: hearing intact, clear oral mucosa - Neck Neck: Present: supple, normal ROM - Respiratory Respiratory effort: normal Respiratory: bilateral: CTA - Cardiovascular Heart rate: 78 Rhythm: regular Heart Sounds: Present: S1 & S2. Absent: rub, click - Extremities Extremities: no ischemia, pulses intact, pulses symmetrical, No edema Peripheral Pulses: within normal limits - Abdominal General gastrointestinal: Present: soft, non-tender, non-distended, normal bowel sounds Female genitourinary: Present: normal - Rectal Rectal Exam: deferred - Integumentary Integumentary: Present: clear, warm, dry - Musculoskeletal Musculoskeletal: gait normal, strength equal bilaterally - Psychiatric Psychiatric: appropriate mood/affect, intact judgment & insight - Neurologic Neurologic: CNII-XII intact, moves all extremities - Allied Health Allied health notes reviewed: nursing, case management Plan Activity: no restrictions Diet: low fat, low cholesterol, low salt Follow up with: HARLEY LAWTON MD [Referring] - 3-5 Days
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
[2018-10-23] MEDS ORDERED: VITAMIN B-12 IM SCH (10:00)
== END 2018-09-26 18:31 | disposition home or self-care (01) | DRG 69 ==
LOC: ED 14:56 → 4A 22:40 → OBSVTOIN 09-25 15:00 → 3A 09-25 18:19
PROVIDERS: ADMIT Internal Medicine; ATTEND Internal Medicine
DX: G45.9 Transient cerebral ischemic attack, unspecified (principal); R07.9 Chest pain, unspecified; I10 Essential (primary) hypertension; E11.9 Type 2 diabetes mellitus without complications; K21.9 Gastro-esophageal reflux disease without esophagitis; E55.9 Vitamin D deficiency, unspecified; M50.322 Other cervical disc degeneration at C5-C6 level; E66.9 Obesity, unspecified; J45.909 Unspecified asthma, uncomplicated; E03.9 Hypothyroidism, unspecified; Z68.35 Body mass index [BMI] 35.0-35.9, adult; Z90.49 Acquired absence of other specified parts of digestive tract; Z88.2 Allergy status to sulfonamides; Z90.711 Acquired absence of uterus with remaining cervical stump; Z79.899 Other long term (current) drug therapy; Z79.84 Long term (current) use of oral hypoglycemic drugs
CPT/HCPCS: 36415; 70450; 70551; 71046; 71275; 72125; 78452; 80053; 81001; 82550; 82553; 82607; 82962; 84443; 84484; 85025; 85379; 85610; 85730; 93005; 93010; 93017; 93880; G0378; A9502; J2270; J2405; J2785; J7040; Q9967

== ENCOUNTER 2019-03-17 06:37 | Day surgery (SDC) | payer MEDICARE ==
[2019-03-17] MEDS ORDERED: NACL 0.9% 1000 ML 1,000 ML IV SCH (07:00)
[2019-03-17] MEDS ORDERED: VERSED ONE (09:18)
[2019-03-17] MEDS ORDERED: DIPRIVAN 10 MG/ML IV ONE (09:18)
[2019-03-17] MEDS ORDERED: WATER FOR IRRIG STERILE IR ONE (09:39)
[2019-03-17] MEDS ORDERED: XYLOCAINE MPF 2% ONE (10:00)
[2019-03-17 10:25] VITALS: BP 137/74
--- NOTE | 2019-03-17 17:21 | Anesthesia Day of Surgery ---
Anesthesia Day of Surgery - Day of Surgery Patient Examined: Yes Patient H&P Reviewed: Yes Patient is NPO: Yes Beta Blockers: No
--- NOTE | 2019-03-17 17:24 | Anesthesia Consultation ---
Anesthesia Consult and Med Hx Date of service: 03/17/19 - Airway Anesthetic Teeth Evaluation: Good ROM Head & Neck: Adequate Mental/Hyoid Distance: Adequate Mallampati Class: Class III Intubation Access Assessment: Probably Good - Pulmonary Exam CTA: Yes - Cardiac Exam Cardiac Exam: No Murmur - Pre-Operative Health Status ASA Pre-Surgery Classification: ASA3 Proposed Anesthetic Plan: MAC - Pulmonary Hx Asthma: Yes (no inhaler for years) COPD: No Hx Pneumonia: No Hx Sleep Apnea: Yes (HX SLEEP APNEA RESOLVED) - Cardiovascular System Hx Hypertension: Yes Hx Heart Attack/AMI: No Hx Pacemaker: No Hx Internal Defibrillator: No Hx Valvular Heart Disease: Yes (MVP) - Central Nervous System Hx Seizures: No - Gastrointestinal Hx Ulcer: Yes (HX) - Endocrine Hx Renal Disease: No Hx Liver Disease: No Hx Non-Insulin Dependent Diabetes: Yes (recently placed on meds but Pt takes them intermittently) Hx Hypothyroidism: Yes (partial thyroidectomy) - Hematic Hx Sickle Cell Disease: No - Other Systems Hx Obesity: Yes
== END 2019-03-17 06:38 | disposition home or self-care (01) ==
LOC: GIO 06:37
PROVIDERS: ATTEND Specialist
DX: K21.0 Gastro-esophageal reflux disease with esophagitis (principal); E66.01 Morbid (severe) obesity due to excess calories; E11.9 Type 2 diabetes mellitus without complications; I10 Essential (primary) hypertension; K30 Functional dyspepsia; E78.5 Hyperlipidemia, unspecified; J45.909 Unspecified asthma, uncomplicated; D64.9 Anemia, unspecified; G47.30 Sleep apnea, unspecified; M06.9 Rheumatoid arthritis, unspecified; E89.0 Postprocedural hypothyroidism; Z98.84 Bariatric surgery status; Z88.2 Allergy status to sulfonamides; Z79.899 Other long term (current) drug therapy; Z79.82 Long term (current) use of aspirin; Z90.49 Acquired absence of other specified parts of digestive tract; Z90.710 Acquired absence of both cervix and uterus; Z98.891 History of uterine scar from previous surgery; Z98.890 Other specified postprocedural states
CPT/HCPCS: 43235; 82962; J2250; J2704; J7030

== ENCOUNTER 2020-01-12 12:23 | Inpatient (IN) | payer MEDICARE ==
[2020-01-12] MEDS ORDERED: ONDANSETRON 4 MG/2 ML INJ IV ONE ×3 (12:50→14:21)
[2020-01-12] MEDS ORDERED: MORPHINE 4 MG/1 ML INJ IV ONE ×2 (12:50→14:21)
--- NOTE | 2020-01-12 13:09 | Emergency Department Report ---
ED General Adult HPI - General Chief complaint: Chest Pain Stated complaint: CHEST PAIN Time Seen by Provider: 01/12/20 12:42 Source: EMS Mode of arrival: Ambulatory Limitations: No Limitations - History of Present Illness Initial comments: This is a 59-year-old female with hx of HTN, SLE, thyroid disease, NIDDM who presents with elevated blood pressure at Cardiology's office via EMS. 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 Ackerman at [facility]. Blood pressure treated with Clonidine. She has had chest pain persistent tightness for several weeks. No hx of CAD. Today was a routine appt to evaluate and manage HTN. in 2019, last year, myocardial perfusion scan performed at this hospital, negative for ischemia 2014 LHC: normal coronary anatomy -: week(s) (Several weeks) Location: chest Severity scale (0 -10): 5 Quality: dull Consistency: constant Improves with: none Worsens with: none Associated Symptoms: other (Elevated home blood pressure readings.) - Related Data Home Medications Medication Instructions Recorded Confirmed Last Taken ALPRAZolam [Xanax TAB] 1 mg PO Q8H PRN 12/19/17 01/12/20 03/16/19 Ergocalciferol [Vitamin D2] 1 cap PO QWEEK 12/19/17 01/12/20 03/16/19 Levothyroxine Sodium [Synthroid] 137 mcg PO QDAY 12/19/17 01/12/20 03/16/19 cloNIDine [Catapres] 0.1 mg PO PRN 01/12/20 01/12/20 Unknown Previous Rx's Medication Instructions Recorded Last Taken Type Aspirin 325 mg PO QDAY tablet 09/26/18 03/06/19 Rx Butalb/Acetaminophen/Caffeine 1 cap PO Q8HR PRN #20 cap 09/26/18 03/16/19 Rx [Fioricet 50-300-40 mg CAP] Doxazosin [Cardura] 4 mg PO QDAY tablet 09/26/18 03/17/19 06:00 Rx Montelukast [Singulair] 10 mg PO QPM tablet 09/26/18 03/16/19 Rx Spironolactone [Aldactone] 25 mg PO QDAY tablet 09/26/18 03/16/19 Rx Allergies Allergy/AdvReac Type Severity Reaction Status Date / Time Sulfa (Sulfonamide Allergy Shortness Verified 04/11/15 01:22 Antibiotics) of Breath ED Review of Systems ROS: Stated complaint: CHEST PAIN Other details as noted in HPI Comment: All other systems reviewed and negative Constitutional: denies: fever, malaise Respiratory: denies: orthopnea, shortness of breath Cardiovascular: chest pain Gastrointestinal: denies: abdominal pain, nausea, vomiting ED Past Medical Hx - Past Medical History Previous Medical History?: Yes Hx Hypertension: Yes Hx CVA: No Hx Heart Attack/AMI: No Hx Congestive Heart Failure: No Hx Diabetes: Yes Hx Deep Vein Thrombosis: No Hx Pulmonary Embolism: No Hx GERD: Yes Hx Liver Disease: No Hx Renal Disease: No Hx Sickle Cell Disease: No Hx Arthritis: No Hx Headaches / Migraines: No Hx Seizures: No Hx Kidney Stones: No Hx Psychiatric Treatment: No Hx Asthma: Yes (no inhaler for years) Hx COPD: No Hx Tuberculosis: No Hx Dementia: No Hx HIV: No Additional medical history: Lupus, hypothyroidism - Surgical History Hx Coronary Stent: No Hx Open Heart Surgery: No Hx Pacemaker: No Hx Internal Defibrillator: No Hx Cholecystectomy: Yes Hx Appendectomy: No Hx Breast Surgery: No Additional Surgical History: Gastric bypass, thyroid surgery, partial hysterectomy, section - Social History Smoking Status: Never Smoker - Medications Home Medications: Home Medications Medication Instructions Recorded Confirmed Last Taken Type ALPRAZolam [Xanax TAB] 1 mg PO Q8H PRN 12/19/17 01/12/20 03/16/19 History Ergocalciferol [Vitamin D2] 1 cap PO QWEEK 12/19/17 01/12/20 03/16/19 History Levothyroxine Sodium [Synthroid] 137 mcg PO QDAY 12/19/17 01/12/20 03/16/19 History Aspirin 325 mg PO QDAY tablet 09/26/18 01/12/20 03/06/19 Rx Butalb/Acetaminophen/Caffeine 1 cap PO Q8HR PRN #20 cap 09/26/18 01/12/20 03/16/19 Rx [Fioricet 50-300-40 mg CAP] Doxazosin [Cardura] 4 mg PO QDAY tablet 09/26/18 01/12/20 03/17/19 06:00 Rx Montelukast [Singulair] 10 mg PO QPM tablet 03/03/0901/12/20 03/16/19 Rx Spironolactone [Aldactone] 25 mg PO QDAY tablet 09/26/18 01/12/20 03/16/19 Rx cloNIDine [Catapres] 0.1 mg PO PRN 01/12/20 01/12/20 Unknown History ED Physical Exam - General Limitations: No Limitations General appearance: alert, in no apparent distress - Head Head exam: Present: atraumatic, normocephalic - Eye Eye exam: Present: normal appearance - ENT ENT exam: Present: mucous membranes moist - Neck Neck exam: Present: normal inspection, full ROM - Respiratory Respiratory exam: Present: normal lung sounds bilaterally. Absent: respiratory distress, wheezes, rales, rhonchi - Cardiovascular Cardiovascular Exam: Present: regular rate, normal rhythm, normal heart sounds. Absent: systolic murmur, diastolic murmur, rubs, gallop - GI/Abdominal GI/Abdominal exam: Present: soft, normal bowel sounds. Absent: distended, tenderness, guarding, rebound - Extremities Exam Extremities exam: Present: normal inspection - Neurological Exam Neurological exam: Present: alert, oriented X3 - Psychiatric Psychiatric exam: Present: normal affect, normal mood - Skin Skin exam: Present: warm, dry, intact, normal color. Absent: rash ED Course Vital Signs 01/12/20 01/12/20 01/12/20 12:42 12:45 13:01 Pulse Rate 60 70 Respiratory 15 17 Rate Blood Pressure 154/87 154/87 O2 Sat by Pulse 99 98 96 Oximetry 01/12/20 01/12/20 13:15 13:31 Pulse Rate 54 L 52 L Respiratory 10 L 13 Rate Blood Pressure 141/73 154/87 O2 Sat by Pulse 96 98 Oximetry ED Medical Decision Making - Lab Data Result diagrams: 01/12/20 13:06 01/12/20 13:06 - EKG Data -: EKG Interpreted by Me EKG shows normal: sinus rhythm, axis, intervals, QRS complexes, ST-T waves Rate: normal, bradycardia - EKG Data Interpretation: no acute changes, normal EKG - Medical Decision Making 1. Hypertensive urgency: No evidence of endorgan damage. Upon arrival blood pressure 154/86 2. Chest pain: Patient has history of recurrent chest pain. She has had previous work-up which was negative for coronary artery disease. I do not suspect emergent causes of chest pain such as aortic dissection, pulmonary embolism, pneumothorax. I suspect chest wall pain or pleurisy related to SLE. CBC chemistry troponin EKG all unremarkable. She has a normal EKG on today's exam. Discharged home. Critical care attestation.: If time is entered above; I have spent that time in minutes in the direct care of this critically ill patient, excluding procedure time. ED Disposition Clinical Impression: Hypertensive urgency, Chest pain Disposition: DC-01 TO HOME OR SELFCARE Is pt being admited?: No Does the pt Need Aspirin: No Condition: Stable Instructions: Chest Pain (ED)
[2020-01-12 13:31] LABS: Basophils % (Auto) 0.4 % (0.0-1.8); Eosinophils % (Auto) 1.2 % (0.0-4.3); Hematocrit 34.5 % (30.3-42.9); Hemoglobin 11.9 gm/dl (10.1-14.3); Lymphocytes # (Auto) 0.8 K/mm3 (1.2-5.4); Lymphocytes % (Auto) 20.3 % (13.4-35.0); Mean Corpuscular HGB Conc 35 % (30-34); Mean Corpuscular Volume 90 fl (79-97); Monocytes # (Auto) 0.3 K/mm3 (0.0-0.8); Monocytes % (Auto) 6.8 % (0.0-7.3); Platelet Count 162 K/mm3 (140-440); Red Blood Count 3.85 M/mm3 (3.65-5.03); Red Cell Distribution Width 13.1 % (13.2-15.2)
[2020-01-12 13:54] LABS: BUN/Creatinine Ratio 12; Blood Urea Nitrogen 12 mg/dL (7-17); Calcium 9.1 mg/dL (8.4-10.2); Hemolysis Index 4
[2020-01-12] MEDS ORDERED: ALUM-MAG HYDROXIDE-SIMETHICONE 200-200-20MG/5ML ORAL LIQD 30 ML PO ONE (14:21)
[2020-01-12] MEDS ORDERED: LIDOCAINE VISCOUS 2% 15 ML ORAL LIQD PO ONE (14:21)
--- NOTE | 2020-01-12 16:09 | History and Physical Report ---
History of Present Illness Chief complaint: My chest hurts History of present illness: 59 YO Female with SLE (Not currently taking DMARD/Steroid therapy), HTN, GERD, DM, Asthma, Hypothyroidism, presents to ED for evaluation. Pt states that she had experienced pain in her chest for the past 1 day with worsening symptoms over the same timeframe. Pt seen and evaluated in her cardiologists office today and reported the aforementioned symptoms. Patient states that the pain in 5- 01/28, substernal, nonradiating, associated with shortness of breath, cramping in nature, not worsened with exertion, or relieved with rest. Patient knowledges decreased exercise tolerance. 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 EMS was notified and the patient was transported to [facility] for further evaluation and care. Patient seen and evaluated in the emergency department. Lab and imaging studies reviewed. Patient found to have clinical symptoms consistent with angina at rest, diastolic congestive heart failure, as well as accelerated hypertension. Patient initiated on chest pain protocol and admitted to telemetry. Cardiology team consulted in ED. Pt denies fever, chills, Palpitations, NVD, syncope, leg swelling, calf pain, prolonged immobility/travel, individual/family history of DVT/PE, hemoptysis, trauma, productive cough, recent ill contacts, or noncompliance with medication. Prior admission on 09/25/2018 reviewed. All medication listed at time of admission has been reconciled. Echocardiogram ordered at the time of admission and is pending at admission. Previous echocardiogram conducted in May 2017 has been reviewed. P Past History Past Medical History: diabetes, GERD, hypertension, hypothyroidism, other (See HPI) Past Surgical History: cholecystectomy, , thyroidectomy, hysterectomy, bowel surgery, Other (Gastric bypass) Social history: single. denies: smoking, alcohol abuse, prescription drug abuse Family history: diabetes, hypertension Medications and Allergies Allergies Allergy/AdvReac Type Severity Reaction Status Date / Time Sulfa (Sulfonamide Allergy Shortness Verified 04/11/15 01:22 Antibiotics) of Breath Home Medications Medication Instructions Recorded Confirmed Last Taken Type ALPRAZolam [Xanax TAB] 1 mg PO Q8H PRN 12/19/17 01/12/20 03/16/19 History Ergocalciferol [Vitamin D2] 1 cap PO QWEEK 12/19/17 01/12/20 03/16/19 History Levothyroxine Sodium [Synthroid] 137 mcg PO QDAY 12/19/17 01/12/20 03/16/19 History Aspirin 325 mg PO QDAY tablet 09/26/18 01/12/20 03/06/19 Rx Butalb/Acetaminophen/Caffeine 1 cap PO Q8HR PRN #20 cap 09/26/18 01/12/20 03/16/19 Rx [Fioricet 50-300-40 mg CAP] Doxazosin [Cardura] 4 mg PO QDAY tablet 09/26/18 01/12/20 03/17/19 06:00 Rx Montelukast [Singulair] 10 mg PO QPM tablet 09/26/18 01/12/20 03/16/19 Rx Spironolactone [Aldactone] 25 mg PO QDAY tablet 09/26/18 01/12/20 03/16/19 Rx cloNIDine [Catapres] 0.1 mg PO PRN 01/12/20 01/12/20 Unknown History Review of Systems Constitutional: weight loss, weight gain, fever, chills Ears, nose, mouth and throat: ear pain, ear discharge, tinnitis, decreased hearing, nose pain Breasts: change in shape, swelling, mass Cardiovascular: chest pain, shortness of breath, high blood pressure, decreased exercise tolerance, no rapid/irregular heart beat, no syncope, no lightheadedness Respiratory: no cough, no cough with sputum, no excessive sputum, no hemoptysis Gastrointestinal: no abdominal pain, no nausea, no vomiting, no diarrhea Genitourinary Female: no pelvic pain, no flank pain, no menorrhagia Rectal: no pain, no incontinence, no bleeding Musculoskeletal: no neck stiffness, no neck pain, no shooting arm pain, no arm numbness/tingling, no low back pain Integumentary: no rash, no pruritis, no redness, no sores, no wounds Neurological: no transient paralysis, no paralysis, no weakness, no parathesias, no numbness, no tingling Psychiatric: no anxiety, no memory loss, no change in sleep habits, no sleep disturbances, no insomnia, no hypersomnia Endocrine: no cold intolerance, no heat intolerance, no polyphagia, no excessive thirst, no polydipsia, no nocturia Hematologic/Lymphatic: no easy bruising, no easy bleeding Allergic/Immunologic: no urticaria, no allergic rhinitis Exam - Constitutional Vitals: Temp Pulse Resp BP Pulse Ox 52 L 13 154/87 98 01/12/20 13:31 01/12/20 13:31 01/12/20 13:31 01/12/20 13:31 General appearance: Present: mild distress, obese - EENT Eyes: Present: PERRL ENT: hearing intact, clear oral mucosa - Neck Neck: Present: supple, normal ROM - Respiratory Respiratory effort: normal Respiratory: bilateral: CTA - Cardiovascular Heart Sounds: Present: S1 & S2. Absent: rub, click - Extremities Extremities: pulses symmetrical, No edema Peripheral Pulses: within normal limits - Abdominal General gastrointestinal: Present: soft, non-tender, non-distended, normal bowel sounds Female genitourinary: Present: normal - Integumentary Integumentary: Present: clear, warm, dry - Musculoskeletal Musculoskeletal: gait normal, strength equal bilaterally - Psychiatric Psychiatric: appropriate mood/affect, intact judgment & insight - Neurologic Neurologic: CNII-XII intact, moves all extremities HEART Score - HEART Score Troponin: Troponin T < 0.010 ng/mL (0.00-0.029) 01/12/20 13:06 Results - Labs CBC & Chem 7: 01/12/20 13:06 01/12/20 13:06 Labs: Abnormal lab results 01/12/20 01/12/20 Range/Units 13:06 13:06 WBC 3.8 L (4.5-11.0) K/mm3 MCHC 35 H (30-34) % RDW 13.1 L (13.2-15.2) % Lymph # 0.8 L (1.2-5.4) K/mm3 Seg Neutrophils % 71.3 H (40.0-70.0) % Glucose 131 H (65-100) mg/dL Assessment and Plan - Patient Problems (1) Angina at rest Current Visit: Yes Status: Acute Plan to address problem: Serial cardiac enzymes, EKG, telemetry, morphine, submental oxygen, nitro, aspirin, cardiology team consulted in ED. Prior echo completed in May 2017 has been reviewed. (2) Diastolic CHF Current Visit: Yes Status: Acute Qualifiers: Heart failure chronicity: acute Qualified Code(s): I50.31 - Acute diastolic (congestive) heart failure Plan to address problem: Strict I's/O, monitor urine output every shift, daily weight, afterload reduction, monitor urine output every shift, echocardiogram, thyroid panel, (3) Accelerated hypertension Current Visit: Yes Status: Acute Plan to address problem: Monitor blood pressure every shift, continue medical management. (4) Systemic lupus erythematosus Current Visit: Yes Status: Acute Qualifiers: Systemic lupus erythematosus type: unspecified Plan to address problem: Supportive care, pain control, outpatient rheumatology follow-up. (5) Diabetes mellitus Current Visit: Yes Status: Acute Plan to address problem: Consistent carbohydrate diet, sliding scale insulin, Accu-Chek, hypoglycemia protocol. (6) Obesity hypoventilation syndrome Current Visit: Yes Status: Acute Plan to address problem: Supplemental oxygen, nebulizer therapy, pulse oximetry, noninvasive positive pressure ventilation as clinically indicated, ambulate in hallway 3 times daily and as needed (7) DVT prophylaxis Current Visit: Yes Status: Acute Plan to address problem: SCD to bilateral lower extremities while in bed, patient is ambulatory.
[2020-01-12] MEDS ORDERED: ACETAMINOPHEN 325 MG TAB PO PRN (16:13)
[2020-01-12] MEDS ORDERED: MORPHINE 4 MG/1 ML INJ IV PRN (16:13)
[2020-01-12] MEDS ORDERED: ONDANSETRON 4 MG/2 ML INJ IV PRN (16:13)
[2020-01-12] MEDS ORDERED: ASPIRIN 81 MG TAB CHEW PO STA (16:15)
[2020-01-12] MEDS ORDERED: NITROGLYCERIN 0.4 MG TAB SUBL SL PRN (16:15)
[2020-01-12] MEDS ORDERED: NON-FORMULARY EACH (Butalb/Acetaminophen/Caffeine [Fioricet 50-300-40 Mg Cap] 1 CAP) PO PRN (16:17)
[2020-01-12] MEDS ORDERED: ALPRAZolam 1 MG TAB PO PRN (16:17)
[2020-01-12] MEDS ORDERED: BUTALB/ACETAMINOPHEN/CAFFEINE TAB PO PRN (16:23)
[2020-01-12 16:38] LABS: Chol/HDL Ratio 3.48 %
[2020-01-12] MEDS ORDERED: ASPIRIN 325 MG TAB ONE (16:53)
--- NOTE | 2020-01-12 16:59 | Cat Scan Report ---
CT CHEST, ABDOMEN AND PELVIS WITH CONTRAST HISTORY: Chest pain, hypertension, epigastric abdominal pain COMPARISON: CT of the abdomen and pelvis on 11/27/2016. Chest CT on 09/24/2018. TECHNIQUE: Routine chest, abdominal and pelvic CT exam performed following intravenous contrast admi nistration. The patient received 100 mL of IV Omnipaque 350. All CT scans at this location are perfor med using CT dose reduction for ALARA by means of automated exposure control. FINDINGS: CT CHEST: Lungs: No significant abnormality. Trachea and Bronchi: No significant abnormality. Heart and Pericardium: No significant abnormality. Vasculature: No significant abnormality. Lymphatics: No lymphadenopathy. CT ABDOMEN: Liver: No significant abnormality. Biliary: The gallbladder is surgically absent. There is mild bile duct dilation that is likely due to reservoir effect from previous cholecystectomy. This is stable from the prior exam. Spleen: No significant abnormality. Unenlarged. Pancreas: No significant abnormality. Adrenals: No significant abnormality. Kidneys: No significant abnormality. Lymphatics: No lymphadenopathy. Vasculature: No significant abnormality. Bowel/Peritoneum: Previous gastric bypass. No acute bowel abnormality. No free air or obstruction. CT PELVIC: : No significant abnormality. Lymphatics: No lymphadenopathy. Osseous Structures: No aggressive appearing osseous lesions. Additional Findings: Postsurgical changes from previous thyroidectomy. IMPRESSION: 1. No acute findings in the chest, abdomen, or pelvis. Signer Name: Anoop Hogue MD Signed: 01/12/2020 4:54 PM Workstation Name: [id number]
[2020-01-12] MEDS ORDERED: cloNIDine 0.1 MG TAB PO SCH (17:00)
[2020-01-12] MEDS ORDERED: MONTELUKAST 10 MG TAB PO SCH (18:00)
[2020-01-12] MEDS ORDERED: DEXTROSE 50% IN WATER (25GM) 50 ML SYRINGE IV PRN (18:05)
[2020-01-12] MEDS: PANTOPRAZOLE 40 MG TAB PO SCH (22:20)
[2020-01-12] MEDS: cloNIDine 0.1 MG TAB PO SCH (22:20)
[2020-01-12] MEDS: INSULIN LISPRO 100 UNIT/ML SUB-Q SCH ×2 (22:20→22:34)
[2020-01-13] MEDS: INSULIN LISPRO 100 UNIT/ML SUB-Q SCH ×2 (08:00→12:00)
--- NOTE | 2020-01-13 08:57 | Discharge Summary ---
Providers - Providers Date of Admission: 01/12/20 16:13 Date of discharge: 01/13/20 Attending physician: TAYLER ARCHIBALD 01/12/20 Consult to Cardiac Rehabilitation [CONS] Routine Reason For Exam: Phase I 01/12/20 16:15 Consult to Cardiology [CONS] Routine Consulting Provider: АЛЕКСАНДР PRIETO Reason For Exam: angina/Diastolic CHF Primary care physician: [facility], Hospitalization Reason for admission: cp/abd pain Condition: Stable Hospital course: This is a 59-year-old female with hx of HTN, SLE, thyroid disease, NIDDM who presented with elevated blood pressure at Cardiology's office. 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 Ackerman at [facility]. Blood pressure treated with Clonidine. She has had chest pain persistent tightness for several weeks. No hx of CAD. The patient came to the emergency room for further evaluation. Her visit to the hotel office manager office was a routine appt to evaluate and manage HTN. Patient reportedly in 2019, last year, myocardial perfusion scan performed at this hospital, negative for ischemia. Also, [facility]: normal coronary anatomy. Patient reported abdominal pain as well. Patient was admitted with diagnosis of chest pain, accelerated hypertension and abdominal pain. Patient underwent CT scan of the abdomen pelvis that was found to be negative. CT of the chest was also negative for heart failure, PE or any acute finding. EKG and troponins were found to be negative. Cardiology was consulted and stress test ordered. If stress test is negative patient will likely discharge home. Blood pressure stabilized after resuming home medications. Diagnosis of probable GERD. Dedicated discharge time 35 minutes Disposition: HI-01 TO HOME OR SELFCARE Time spent for discharge: 35 - Discharge Diagnoses (1) Abdominal pain Status: Acute (2) Accelerated hypertension Status: Acute (3) Chest pain Status: Acute (4) Diabetes mellitus Status: Acute Core Measure Documentation - Palliative Care Palliative Care/ Comfort Measures: Not Applicable - Core Measures Any of the following diagnoses?: none Exam - Constitutional Vitals: Temp Pulse Resp BP Pulse Ox 98.2 F 53 L 18 124/76 95 01/13/20 07:17 01/13/20 04:01 01/13/20 07:17 01/13/20 07:17 01/13/20 04:01 General appearance: Present: no acute distress, well-nourished - EENT Eyes: Present: PERRL ENT: hearing intact, clear oral mucosa - Neck Neck: Present: supple, normal ROM - Respiratory Respiratory effort: normal Respiratory: bilateral: CTA - Cardiovascular Heart Sounds: Present: S1 & S2. Absent: rub, click - Extremities Extremities: pulses symmetrical, No edema Peripheral Pulses: within normal limits - Abdominal General gastrointestinal: Present: soft, non-tender, non-distended, normal bowel sounds Female genitourinary: Present: normal - Integumentary Integumentary: Present: clear, warm, dry - Musculoskeletal Musculoskeletal: gait normal, strength equal bilaterally - Psychiatric Psychiatric: appropriate mood/affect, intact judgment & insight - Neurologic Neurologic: CNII-XII intact, moves all extremities Plan Activity: advance as tolerated Weight Bearing Status: Weight Bear as Tolerated Diet: regular Follow up with: SANTOS HOLLISGRULLA MD ROSS [Primary Care Provider] - 3-5 Days Prescriptions: Spironolactone [Aldactone] 25 mg PO QDAY #30 tablet Aspirin 325 mg PO QDAY #30 tablet Doxazosin [Cardura] 4 mg PO QDAY #30 tablet cloNIDine [Catapres] 0.1 mg PO BID #60 tablet Butalb/Acetaminophen/Caffeine [Fioricet 50-300-40 mg CAP] 1 cap PO Q8HR PRN #20 cap PRN Reason: Headache Pantoprazole [Protonix TAB] 40 mg PO BID #60 tablet Montelukast [Singulair] 10 mg PO QPM #30 tablet Levothyroxine Sodium [Synthroid] 137 mcg PO QDAY #30 ALPRAZolam [Xanax TAB] 1 mg PO Q8H PRN #20 PRN Reason: Anxiety
[2020-01-13] MEDS: PANTOPRAZOLE 40 MG TAB PO SCH (09:55)
[2020-01-13] MEDS: cloNIDine 0.1 MG TAB PO SCH (09:59)
[2020-01-13] MEDS ORDERED: LEVOTHYROXINE SODIUM 137 MCG PO SCH (10:00)
[2020-01-13] MEDS ORDERED: SPIRONOLACTONE 25 MG TAB PO SCH (10:00)
[2020-01-13] MEDS ORDERED: LEVOTHYROXINE 25 MCG TAB PO SCH (10:00)
[2020-01-13] MEDS ORDERED: DOXAZOSIN 4 MG TAB PO SCH (10:00)
[2020-01-13] MEDS ORDERED: LEVOTHYROXINE 112 MCG TAB PO SCH (10:00)
--- NOTE | 2020-01-13 10:25 | Consultation ---
History of Present Illness Consult date: 01/13/20 Consult reason: chest pain, congestive heart failure History of present illness: This is a 59-year old woman with difficult to control hypertension, currently on Hydralazine and Clonidine. She was seen in our office yesterday, blood pressure 190/100, which was treated with Clonidine 0.1mg. Shortly afterwards, patient complained of severe abdominal pain with associated diaphoresis and was referred to the emergency department for evaluation. Patient has a history of hypothyroidism, gastric surgery in 2008 and chronic epigastric pain. Patient is followed by Dr. Chong and reports upper endoscopy a month ago but has not followed up for results. Blood pressure 154/87 on presentation. No acute abnormality on abdominal CT scan. An ECG is sinus bradycardia. 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 It would be recalled the patient is on Clonidine 0.1mg twice daily. Past History Past Medical History: diabetes, GERD, hypertension, hypothyroidism, other (See HPI) Past Surgical History: cholecystectomy, , thyroidectomy, hysterectomy, bowel surgery, Other (Gastric bypass) Social history: single. denies: smoking, alcohol abuse, prescription drug abuse Family history: diabetes, hypertension Medications and Allergies Allergies Allergy/AdvReac Type Severity Reaction Status Date / Time Sulfa (Sulfonamide Allergy Shortness Verified 04/11/15 01:22 Antibiotics) of Breath Home Medications Medication Instructions Recorded Confirmed Last Taken Type Ergocalciferol [Vitamin D2] 1 cap PO QWEEK 12/19/17 01/12/20 03/16/19 History ALPRAZolam [Xanax TAB] 1 mg PO Q8H PRN #20 01/13/20 Unknown Rx Aspirin 325 mg PO QDAY #30 tablet 01/13/20 Unknown Rx Butalb/Acetamin/Caff 50-325-40 1 tab PO Q8HR PRN tablet 01/13/20 Unknown Rx [Fioricet 50-325-40] Butalb/Acetaminophen/Caffeine 1 cap PO Q8HR PRN #20 cap 01/13/20 Unknown Rx [Fioricet 50-300-40 mg CAP] Doxazosin [Cardura] 4 mg PO QDAY #30 tablet 01/13/20 Unknown Rx Levothyroxine Sodium [Synthroid] 137 mcg PO QDAY #30 01/13/20 Unknown Rx Levothyroxine [Synthroid] 25 mcg PO QDAY tablet 01/13/20 Unknown Rx Levothyroxine [Synthroid] 112 mcg PO QDAY tablet 01/13/20 Unknown Rx Montelukast [Singulair] 10 mg PO QPM #30 tablet 01/13/20 Unknown Rx Pantoprazole [Protonix TAB] 40 mg PO BID #60 tablet 01/13/20 Unknown Rx Spironolactone [Aldactone] 25 mg PO QDAY #30 tablet 01/13/20 Unknown Rx cloNIDine [Catapres] 0.1 mg PO BID #60 tablet 01/13/20 Unknown Rx Active Meds: Active Medications Acetaminophen (Tylenol) 650 mg PO Q4H PRN PRN Reason: Pain MILD(1-3)/Fever >100.5/PRYOR Acetaminophen/Butalbital/Caffeine (Fioricet) 1 tab PO Q8HR PRN PRN Reason: Headache Alprazolam (Xanax) 1 mg PO Q8H PRN PRN Reason: Anxiety Clonidine HCl (Catapres) 0.1 mg PO BID [facility] Last Admin: 01/13/20 09:59 Dose: Not Given Documented by: Dextrose (D50w (25gm) Syringe) 50 ml IV Q30MIN PRN; Protocol PRN Reason: Hypoglycemia Doxazosin Mesylate (Cardura) 4 mg PO QDAY [facility] Last Admin: 01/13/20 09:59 Dose: Not Given Documented by: Ergocalciferol (Vitamin D2) 50,000 unit PO [facility] Insulin Human Lispro (Humalog) 0 unit SUB-Q [facility]; Protocol Last Admin: 01/13/20 08:00 Dose: Not Given Documented by: Levothyroxine Sodium (Synthroid) 112 mcg PO QDAY [facility] Last Admin: 01/13/20 09:55 Dose: 112 mcg Documented by: Levothyroxine Sodium (Synthroid) 25 mcg PO QDAY [facility] Last Admin: 01/13/20 09:55 Dose: 25 mcg Documented by: Montelukast Sodium (Singulair) 10 mg PO QPM [facility] Last Admin: 01/12/20 18:38 Dose: 10 mg Documented by: Morphine Sulfate (Morphine) 2 mg IV Q4H PRN PRN Reason: Pain , Severe (7-10) Nitroglycerin (Nitrostat) 0.4 mg SL Q5M PRN PRN Reason: Chest Pain Ondansetron HCl (Zofran) 4 mg IV Q8H PRN PRN Reason: Nausea And Vomiting Pantoprazole Sodium (Protonix) 40 mg PO BID [facility] Last Admin: 01/13/20 09:55 Dose: 40 mg Documented by: Sodium Chloride (Sodium Chloride Flush Syringe 10 Ml) 10 ml IV BID [facility] Last Admin: 01/13/20 09:55 Dose: 10 ml Documented by: Sodium Chloride (Sodium Chloride Flush Syringe 10 Ml) 10 ml IV PRN PRN PRN Reason: LINE FLUSH Spironolactone (Aldactone) 25 mg PO QDAY [facility] Physical Examination Vital Signs Pulse Ox 99 01/12/20 12:42 General appearance: no acute distress HEENT: Positive: PERRL Neck: Positive: trachea midline Cardiac: Positive: Reg Rate and Rhythm Lungs: Positive: Normal Breath Sounds Neuro: Positive: Grossly Intact Extremities: Absent: edema Results 01/12/20 13:06 01/12/20 13:06 Lipids 01/12/20 Range/Units 13:06 Triglycerides 85 (2-149) mg/dL Cholesterol 223 H (50-199) mg/dL HDL Cholesterol 64 H (40-59) mg/dL Cholesterol/HDL Ratio 3.48 % CBC 01/12/20 Range/Units 13:06 WBC 3.8 L (4.5-11.0) K/mm3 RBC 3.85 (3.65-5.03) M/mm3 Hgb 11.9 (10.1-14.3) gm/dl Hct 34.5 (30.3-42.9) % Plt Count 162 (140-440) K/mm3 Lymph # 0.8 L (1.2-5.4) K/mm3 Terry # 0.3 (0.0-0.8) K/mm3 Eos # 0.0 (0.0-0.4) K/mm3 Baso # 0.0 (0.0-0.1) K/mm3 Comprehensive Metabolic Panel 01/12/20 Range/Units 13:06 Sodium 142 (137-145) mmol/L Potassium 4.1 (3.6-5.0) mmol/L Chloride 104.9 (98-107) mmol/L Carbon Dioxide 23 (22-30) mmol/L BUN 12 (7-17) mg/dL Creatinine 1.0 (0.7-1.2) mg/dL Glucose 131 H (65-100) mg/dL Calcium 9.1 (8.4-10.2) mg/dL Assessment and Plan Hypertension Sinus bradycardia, asymptomatic rate low 50s-60. Abdominal pain -reason for admission Hx of gastric bypass Hypothyroidism Recommendations: Check TSH. Discontinue clonidine due to sinus bradycardia. Replace with Procardia XL 60mg once a day. Continue hydralazine for optimal blood pressure management. Defer abdominal pain evaluation to GI.
[2020-01-13] MEDS ORDERED: NIFEdipine XL 60 MG TAB PO SCH (11:00)
[2020-01-13] MEDS ORDERED: hydrALAZINE 25 MG TAB PO SCH (11:00)
[2020-01-13 15:19] VITALS: BP 154/83
[2020-01-19] MEDS ORDERED: ERGOCALCIFEROL (VIT D2) 50,000 UNIT CAP PO SCH (10:00)
== END 2020-01-13 15:48 | disposition home or self-care (01) | DRG 291 ==
LOC: ED 12:23 → 4A 16:13
PROVIDERS: ADMIT Internal Medicine; ATTEND Hospitalist
DX: I11.0 Hypertensive heart disease with heart failure (principal); I50.31 Acute diastolic (congestive) heart failure; E66.2 Morbid (severe) obesity with alveolar hypoventilation; I16.0 Hypertensive urgency; I25.110 Atherosclerotic heart disease of native coronary artery with unstable angina pectoris; M32.9 Systemic lupus erythematosus, unspecified; K21.9 Gastro-esophageal reflux disease without esophagitis; E03.9 Hypothyroidism, unspecified; E11.9 Type 2 diabetes mellitus without complications; J45.909 Unspecified asthma, uncomplicated; Z79.82 Long term (current) use of aspirin; Z90.49 Acquired absence of other specified parts of digestive tract; Z79.899 Other long term (current) drug therapy; Z98.890 Other specified postprocedural states; Z98.891 History of uterine scar from previous surgery; Z90.710 Acquired absence of both cervix and uterus; Z83.3 Family history of diabetes mellitus; Z82.49 Family history of ischemic heart disease and other diseases of the circulatory system; Z88.2 Allergy status to sulfonamides; Z88.1 Allergy status to other antibiotic agents; Z68.35 Body mass index [BMI] 35.0-35.9, adult; Z79.84 Long term (current) use of oral hypoglycemic drugs
CPT/HCPCS: 36415; 71260; 74177; 80048; 80061; 82962; 84439; 84443; 84484; 85025; 93005; 93306; G0378; J1815; J2270; J2405; J3246; Q9967

== ENCOUNTER 2020-01-15 15:46 | Emergency (ER) | payer MEDICARE ==
[2020-01-15] MEDS ORDERED: FAMOTIDINE 20 MG/2 ML INJ IV ONE (16:28)
[2020-01-15] MEDS ORDERED: LORazepam 2 MG/ML VIAL IV STA (16:28)
--- NOTE | 2020-01-15 16:31 | Emergency Department Report ---
ED General Adult HPI - General Chief complaint: Chest Pain Stated complaint: CHEST PAIN PUI?: No Time Seen by Provider: 01/15/20 16:14 Source: patient, EMS ( EMS documentation not available at time of chart dictation ), RN notes reviewed, old records reviewed Mode of arrival: Stretcher Limitations: No Limitations - History of Present Illness Initial comments: This is a 59-year-old female. I have evaluated her in the past. Her past medical history includes obesity, hypertension, diabetes, GERD, hypothyroidism, cholecystectomy. Objective testing at this facility in the past Negative cardiac nuclear stress test September 2018. Unremarkable cardiac catheterization 4 years ago, which showed angiographically normal coronary arteries, as per prior cardiology documentation. CT scan of the chest, 01/12/2020, CT angiogram chest, September 24, 2018, December 20, 2017, duplex scan lower extremity for DVT, December 19, 2017; all negative for acute pathology Negative d-dimer, May 2017, September 2018 multiple negative troponins May 2017 through December 2019 The patient follows with cardiology, Dr. Mcdaniel, and sees an court security officer, Dr. Kumar The patient was seen in this hospital a few days ago by our local cardiology practice. "No further cardiac work-up is indicated." Patient was also being evaluated by internal medicine and gastroenterology for abdominal pain. Patient's clonidine was stopped, and she was started on Procardia and hydralazine. Today, the patient presents to the ER with a complaint of resolved chest pressure, resolved palpitations, cramping and twisting of her right upper extremity, and global weakness. The symptoms have been intermittent. They are basically resolved at this time. The patient makes no complaint of headache, neck pain, she has no chest pain at this time, she has chronic abdominal pain, there is no vomiting, no irritative or obstructive urinary symptoms, no focal extremity weakness and no numbness, chronic global weakness. Chronic anxiety. -: Sudden Location: back, right, upper extremity Severity scale (0 -10): 3 Quality: aching Consistency: now resolved Improves with: none Worsens with: none Associated Symptoms: denies other symptoms - Related Data Home Medications Medication Instructions Recorded Confirmed Last Taken Ergocalciferol [Vitamin D2] 1 cap PO QWEEK 12/19/17 01/12/20 03/16/19 Previous Rx's Medication Instructions Recorded Last Taken Type ALPRAZolam [Xanax TAB] 1 mg PO Q8H PRN #20 01/13/20 Unknown Rx Aspirin 325 mg PO QDAY #30 tablet 01/13/20 Unknown Rx Butalb/Acetamin/Caff 50-325-40 1 tab PO Q8HR PRN tablet 01/13/20 Unknown Rx [Fioricet 50-325-40] Butalb/Acetaminophen/Caffeine 1 cap PO Q8HR PRN #20 cap 01/13/20 Unknown Rx [Fioricet 50-300-40 mg CAP] Levothyroxine Sodium [Synthroid] 137 mcg PO QDAY #30 01/13/20 Unknown Rx Levothyroxine [Synthroid] 25 mcg PO QDAY tablet 01/13/20 Unknown Rx Levothyroxine [Synthroid] 112 mcg PO QDAY tablet 01/13/20 Unknown Rx Montelukast [Singulair] 10 mg PO QPM #30 tablet 01/13/20 Unknown Rx NIFEdipine XL [Procardia Xl] 60 mg PO Q12HR #60 tab 01/13/20 Unknown Rx Pantoprazole [Protonix TAB] 40 mg PO BID #60 tablet 01/13/20 Unknown Rx hydrALAZINE [Apresoline TAB] 50 mg PO BID #60 tab 01/13/20 Unknown Rx Allergies Allergy/AdvReac Type Severity Reaction Status Date / Time Sulfa (Sulfonamide Allergy Shortness Verified 04/11/15 01:22 Antibiotics) of Breath ED Review of Systems ROS: Stated complaint: CHEST PAIN Other details as noted in HPI Constitutional: malaise. denies: fever Eyes: denies: eye discharge ENT: denies: congestion Respiratory: denies: wheezing Cardiovascular: chest pain, palpitations Gastrointestinal: abdominal pain. denies: vomiting Genitourinary: denies: urgency Musculoskeletal: arthralgia, myalgia Skin: denies: lesions Neurological: weakness Psychiatric: anxiety ED Past Medical Hx - Past Medical History Hx Hypertension: Yes Hx CVA: No Hx Heart Attack/AMI: No Hx Congestive Heart Failure: No Hx Diabetes: Yes Hx Deep Vein Thrombosis: No Hx Pulmonary Embolism: No Hx GERD: Yes Hx Liver Disease: No Hx Renal Disease: No Hx Sickle Cell Disease: No Hx Arthritis: No Hx Headaches / Migraines: No Hx Seizures: No Hx Kidney Stones: No Hx Psychiatric Treatment: No Hx Asthma: Yes (no inhaler for years) Hx COPD: No Hx Tuberculosis: No Hx Dementia: No Hx HIV: No Additional medical history: Lupus, hypothyroidism - Surgical History Hx Coronary Stent: No Hx Open Heart Surgery: No Hx Pacemaker: No Hx Internal Defibrillator: No Hx Cholecystectomy: Yes Hx Appendectomy: No Hx Breast Surgery: No Additional Surgical History: Gastric bypass, thyroid surgery, partial hysterectomy, section - Social History Smoking Status: Never Smoker - Medications Home Medications: Home Medications Medication Instructions Recorded Confirmed Last Taken Type Ergocalciferol [Vitamin D2] 1 cap PO QWEEK 12/19/17 01/12/20 03/16/19 History ALPRAZolam [Xanax TAB] 1 mg PO Q8H PRN #20 01/13/20 Unknown Rx Aspirin 325 mg PO QDAY #30 tablet 01/13/20 Unknown Rx Butalb/Acetamin/Caff 50-325-40 1 tab PO Q8HR PRN tablet 01/13/20 Unknown Rx [Fioricet 50-325-40] Butalb/Acetaminophen/Caffeine 1 cap PO Q8HR PRN #20 cap 01/13/20 Unknown Rx [Fioricet 50-300-40 mg CAP] Levothyroxine Sodium [Synthroid] 137 mcg PO QDAY #30 01/13/20 Unknown Rx Levothyroxine [Synthroid] 25 mcg PO QDAY tablet 01/13/20 Unknown Rx Levothyroxine [Synthroid] 112 mcg PO QDAY tablet 01/13/20 Unknown Rx Montelukast [Singulair] 10 mg PO QPM #30 tablet 01/13/20 Unknown Rx NIFEdipine XL [Procardia Xl] 60 mg PO Q12HR #60 tab 01/13/20 Unknown Rx Pantoprazole [Protonix TAB] 40 mg PO BID #60 tablet 01/13/20 Unknown Rx hydrALAZINE [Apresoline TAB] 50 mg PO BID #60 tab 01/13/20 Unknown Rx ED Physical Exam - General Limitations: No Limitations General appearance: alert, in no apparent distress - Head Head exam: Present: atraumatic, normocephalic - Eye Eye exam: Present: normal appearance, PERRL, EOMI, other (Visual acuity intact to finger counting, color perception, reading at a close distance). Absent: nystagmus - ENT ENT exam: Present: normal exam, normal orophraynx, mucous membranes moist, normal external ear exam - Neck Neck exam: Present: normal inspection, full ROM. Absent: tenderness, meningismus - Respiratory Respiratory exam: Present: normal lung sounds bilaterally. Absent: respiratory distress - Cardiovascular Cardiovascular Exam: Present: regular rate, normal rhythm, normal heart sounds. Absent: bradycardia, tachycardia, irregular rhythm, systolic murmur, diastolic murmur, rubs, gallop - GI/Abdominal GI/Abdominal exam: Present: soft, normal bowel sounds. Absent: distended, tenderness, guarding, rebound, rigid, pulsatile mass - Extremities Exam Extremities exam: Present: normal inspection, full ROM, other (2+ pulses noted in the bilateral upper and lower extremities. There is no palpable cord. negative Homans sign. Muscular compartments are soft. The pelvis is stable.). Absent: pedal edema, calf tenderness - Back Exam Back exam: Present: normal inspection, full ROM. Absent: tenderness, CVA tenderness (R), CVA tenderness (L), paraspinal tenderness, vertebral tenderness - Neurological Exam Neurological exam: Present: alert, oriented X3, normal gait, other (No facial droop. Tongue midline. Extraocular movements intact bilaterally. Facial sensation intact to light touch in V1, V2, V3 distribution bilaterally. 5 and a 5 strength in 4 extremities. Sensation intact to light touch in 4 extremitie s.). Absent: motor sensory deficit - Psychiatric Psychiatric exam: Present: anxious - Skin Skin exam: Present: warm, dry, intact, normal color. Absent: rash ED Course Vital Signs 01/15/20 01/15/20 01/15/20 16:13 16:15 16:30 Temperature 98.6 F Pulse Rate 68 66 Respiratory 16 10 L Rate Blood Pressure 166/85 141/85 O2 Sat by Pulse 98 97 Oximetry 01/15/20 01/15/20 01/15/20 16:45 17:00 17:15 Temperature Pulse Rate 64 73 72 Respiratory 11 L 13 17 Rate Blood Pressure 141/87 143/87 133/80 O2 Sat by Pulse 97 100 Oximetry 01/15/20 01/15/20 01/15/20 17:30 17:45 18:00 Temperature Pulse Rate 84 80 81 Respiratory 19 17 18 Rate Blood Pressure 129/85 134/75 132/80 O2 Sat by Pulse 97 Oximetry 01/15/20 01/15/20 01/15/20 18:15 18:30 18:45 Temperature Pulse Rate 77 80 78 Respiratory 15 16 16 Rate Blood Pressure 132/82 134/81 128/82 O2 Sat by Pulse 98 100 100 Oximetry 01/15/20 19:00 Temperature Pulse Rate 80 Respiratory 12 Rate Blood Pressure 134/81 O2 Sat by Pulse 99 Oximetry - Reevaluation(s) Reevaluation #1: 01/15/20 17:57 Differential diet diagnosis, including but not limited to: GERD, gastritis, hiatal hernia, anxiety, coronary artery disease, carpopedal spasm, thyroid derangement Assessment and plan: 59-year-old female with multiple complaints, which are now resolved. She was recently admitted to this hospital, and had a fairly extensive work-up and evaluation, including essentially negative CT scan of the chest, abdomen, pelvis, multiple negative troponins. She has had multiple cardiac risk ratification is within the past few years. I find the patient to be low risk for major adverse cardiac event as per heart score. She has a GCS of 15 at this time. Her EKG is unchanged from prior. Recently had TSH at this hospital, which was found to be unremarkable. We will treat the patient supportively and symptomatically. X-ray of the chest today appears to be unremarkable. EKG today is unchanged from prior. Repeat troponin, repeat EKG pending. 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 The patient is not currently tachycardic, tachypneic or hypoxic, I find her to be low risk by Wells criteria for pulmonary embolism. In addition, she has been evaluated multiple times in this hospital in the past for pulmonary embolism and DVT, and these studies have been unremarkable for acute findings. Reevaluation #2: 01/15/20 18:45 EKG unchanged x2. Repeat troponin pending at this time. Patient resting comfortably in her stretcher and in no acute distress Reevaluation #3: 01/15/20 19:03 Troponin negative x2. EKG unchanged x2. Vital signs stable and unremarkable. We will plan for discharge ED Medical Decision Making - Lab Data Result diagrams: 01/15/20 16:38 01/15/20 16:38 Vital Signs 01/15/20 01/15/20 01/15/20 16:13 16:15 16:30 Pulse Rate 68 66 Respiratory 16 10 L Rate Blood Pressure 166/85 141/85 O2 Sat by Pulse 98 97 Oximetry 01/15/20 01/15/20 01/15/20 16:45 17:00 17:15 Pulse Rate 64 73 72 Respiratory 11 L 13 17 Rate Blood Pressure 141/87 143/87 133/80 O2 Sat by Pulse 97 100 Oximetry Lab Results 01/15/20 01/15/20 01/15/20 Range/Units 16:38 16:38 16:38 Hgb 12.8 (10.1-14.3) gm/dl Hct 37.4 (30.3-42.9) % Plt Count 181 (140-440) K/mm3 PT 13.9 (12.2-14.9) Sec. INR 1.06 (0.87-1.13) Sodium 137 (137-145) mmol/L Potassium 3.9 (3.6-5.0) mmol/L Chloride 100.7 (98-107) mmol/L Carbon Dioxide 24 (22-30) mmol/L Anion Gap 16 mmol/L BUN 14 (7-17) mg/dL Creatinine 1.1 (0.7-1.2) mg/dL Estimated GFR > 60 ml/min BUN/Creatinine Ratio 13 % Glucose 101 H (65-100) mg/dL Calcium 9.3 (8.4-10.2) mg/dL Magnesium 2.20 (1.7-2.3) mg/dL Total Creatine Kinase 477 H (30-135) units/L Troponin T < 0.010 (0.00-0.029) ng/mL - EKG Data -: EKG Interpreted by Wi EKG shows normal: sinus rhythm Rate: normal - EKG Data 01/15/20 17:57 The EKG today is unchanged from prior EKG from 2 days ago. Sinus rhythm, 68 bpm, normal axis, normal intervals, left ventricular hypertrophy, early repolarization, not a STEMI. - Radiology Data Radiology results: pending, report reviewed, image reviewed Print Report Referring Physician: MARITZA JOLLEY Patient Name: DAVIN ESPINOZA Date of : 1960 Sex: Female Report Date: 2020-01-15 Report Status: Finalized Findings [facility] [address] [place] [address] XRay Report Signed Patient: DAVIN ESPINOZA MR#: [id number] : 1960 Acct:[id number] Age/Sex: 59 / F ADM Date: 01/15/20 Loc: ED Attending Dr: Ordering Physician: MARITZA JOLLEY MD Date of Service: 01/15/20 Procedure(s): XR chest 1V ap Accession Number(s): [id number] cc: MARITZA JOLLEY MD Fluoro Time In Minutes: CHEST 1 VIEW 01/15/2020 3:37 PM INDICATION / CLINICAL INFORMATION: cp cramping. COMPARISON: 09/24/18 FINDINGS: SUPPORT DEVICES: None. HEART / MEDIASTINUM: No significant abnormality. LUNGS / PLEURA: No significant pulmonary or pleural abnormality. No pneumothorax. ADDITIONAL FINDINGS: No significant additional findings. IMPRESSION: 1. No acute findings. No change. Signer Name: Liv Zee MD Signed: 01/15/2020 4:40 PM Workstation Name: [id number] Transcribed By: DT Dictated By: Juan Zee MD Electronically Authenticated By: Juan Zee MD Signed Date/Time: 01/15/20 1640 DD/ 1639 TD/TT: Print Report Referring Physician: LIZA GLOVER Patient Name: DAVIN ESPINOZA Date of : 1960 Sex: Female Report Date: 2020-01-12 Report Status: Finalized Findings [address] [address] Cat Scan Report Signed Patient: DAVIN ESPINOZA MR#: [id number] : 1960 Acct:[id number] Age/Sex: 59 / F ADM Date: 01/12/20 Loc: 4A A454-[address]: TAYLER ARCHIBALD MD Ordering Physician: Svitlana Cedeño MD Date of Service: 01/12/20 Procedure(s): CT chest w con Accession Number(s): [id number] cc: Svitlana Cedeño MD CT CHEST, ABDOMEN AND PELVIS WITH CONTRAST HISTORY: Chest pain, hypertension, epigastric abdominal pain COMPARISON: CT of the abdomen and pelvis on 11/27/2016. Chest CT on 09/24/2018. TECHNIQUE: Routine chest, abdominal and pelvic CT exam performed following intravenous contrast administration. The patient received 100 mL of IV Omnipaque 350. All CT scans at this location are performed using CT dose reduction for ALARA by means of automated exposure control. FINDINGS: CT CHEST: Lungs: No significant abnormality. Trachea and Bronchi: No significant abnormality. Heart and Pericardium: No significant abnormality. Vasculature: No significant abnormality. Lymphatics: No lymphadenopathy. CT ABDOMEN: Liver: No significant abnormality. Biliary: The gallbladder is surgically absent. There is mild bile duct dilation that is likely due to reservoir effect from previous cholecystectomy. This is stable from the prior exam. Spleen: No significant abnormality. Unenlarged. Pancreas: No significant abnormality. Adrenals: No significant abnormality. Kidneys: No significant abnormality. Lymphatics: No lymphadenopathy. Vasculature: No significant abnormality. Bowel/Peritoneum: Previous gastric bypass. No acute bowel abnormality. No free air or obstruction. CT PELVIC: : No significant abnormality. Lymphatics: No lymphadenopathy. Osseous Structures: No aggressive appearing osseous lesions. Additional Findings: Postsurgical changes from previous thyroidectomy. IMPRESSION: 1. No acute findings in the chest, abdomen, or pelvis. Signer Name: Anoop Hogue MD Signed: 01/12/2020 4:54 PM Workstation Name: [id number] Transcribed By: JUNIOR Dictated By: Anoop Hogue MD Electronically Authenticated By: Anoop Hogue MD Signed Date/Time: 01/12/201653 DD/ 49 TD/TT: Critical care attestation.: If time is entered above; I have spent that time in minutes in the direct care of this critically ill patient, excluding procedure time. ED Disposition Clinical Impression: History of palpitations, History of chest pain Disposition: DC-01 TO HOME OR SELFCARE Is pt being admited?: No Does the pt Need Aspirin: No Condition: Stable Additional Instructions: Please continue current outpatient medications. Please follow-up with your primary care doctor or heavy equipment plumbing supervisor within the next 3 to 5 days. Please avoid consumption of Motrin, ibuprofen, Naprosyn, Aleve, heavy and spicy foods. Please return to the emergency room right away with new pain, worsening pain, migration of pain, projectile vomiting, change in mental status, confusion, inability to tolerate liquid feeds, new, worsened or different symptoms not present on the initial emergency room evaluation. Referrals: DELMI AVERY MD [Referring] - 3-5 Days HARVEY HINSON MD [Staff Physician] - 3-5 Days
--- NOTE | 2020-01-15 16:44 | XRay Report ---
CHEST 1 VIEW 01/15/2020 3:37 PM INDICATION / CLINICAL INFORMATION: cp cramping. COMPARISON: 09/24/18 FINDINGS: SUPPORT DEVICES: None. HEART / MEDIASTINUM: No significant abnormality. LUNGS / PLEURA: No significant pulmonary or pleural abnormality. No pneumothorax. ADDITIONAL FINDINGS: No significant additional findings. IMPRESSION: 1. No acute findings. No change. Signer Name: Liv Zee MD Signed: 01/15/2020 4:40 PM Workstation Name: [id number]
[2020-01-15 17:02] LABS: Hematocrit 37.4 % (30.3-42.9); Hemoglobin 12.8 gm/dl (10.1-14.3)
[2020-01-15 17:12] LABS: INR 1.06 (0.87-1.13)
[2020-01-15 17:14] LABS: BUN/Creatinine Ratio 13; Blood Urea Nitrogen 14 mg/dL (7-17); Calcium 9.3 mg/dL (8.4-10.2); Hemolysis Index 3
[2020-01-15 19:21] VITALS: BP 134/81
== END 2020-01-15 19:24 | disposition home or self-care (01) ==
LOC: ED 15:46
DX: R07.89 Other chest pain (principal); R00.2 Palpitations; I10 Essential (primary) hypertension; K21.9 Gastro-esophageal reflux disease without esophagitis; E11.9 Type 2 diabetes mellitus without complications; J45.909 Unspecified asthma, uncomplicated; E03.9 Hypothyroidism, unspecified; Z90.49 Acquired absence of other specified parts of digestive tract; Z90.710 Acquired absence of both cervix and uterus; Z88.2 Allergy status to sulfonamides; Z79.899 Other long term (current) drug therapy; Z79.82 Long term (current) use of aspirin
CPT/HCPCS: 36415; 71045; 80048; 82550; 83735; 84484; 85014; 85018; 85049; 85610; 93005; 96374; 96375; 99284; J2060

== ENCOUNTER 2020-02-20 20:38 | Observation (INO) | payer MEDICARE ==
[2020-02-20] MEDS ORDERED: ASPIRIN 325 MG TAB PO ONE (21:00)
[2020-02-20 21:23] LABS: Basophils % (Auto) 0.7 % (0.0-1.8); Eosinophils # (Auto) 0.1 K/mm3 (0.0-0.4); Eosinophils % (Auto) 2.4 % (0.0-4.3); Hematocrit 30.1 % (30.3-42.9); Hemoglobin 10.1 gm/dl (10.1-14.3); Lymphocytes # (Auto) 1.3 K/mm3 (1.2-5.4); Lymphocytes % (Auto) 31.5 % (13.4-35.0); Mean Corpuscular HGB Conc 34 % (30-34); Mean Corpuscular Volume 90 fl (79-97); Monocytes # (Auto) 0.4 K/mm3 (0.0-0.8); Platelet Count 153 K/mm3 (140-440); Red Blood Count 3.34 M/mm3 (3.65-5.03); Red Cell Distribution Width 14.4 % (13.2-15.2)
[2020-02-20 21:37] LABS: BUN/Creatinine Ratio 7; Blood Urea Nitrogen 8 mg/dL (7-17); Calcium 8.7 mg/dL (8.4-10.2); Hemolysis Index 2
[2020-02-21] MEDS ORDERED: NITROGLYCERIN 2% OINT 1 GM TP ONE (00:03)
[2020-02-21] MEDS ORDERED: ONDANSETRON 4 MG/2 ML INJ IV ONE (00:03)
[2020-02-21] MEDS ORDERED: fentaNYL 100 MCG/2 ML INJ IV ONE (00:03)
--- NOTE | 2020-02-21 00:08 | Emergency Department Report ---
HPI - General Chief Complaint: Chest Pain Time Seen by Provider: 02/20/20 23:54 - HPI HPI: Room 25 The patient is a 60-year-old female present with a chief complaint of chest pain. Patient states earlier today she developed substernal chest pain descri bed as a pressure that is been constant. Patient states her pain is associated with shortness of breath, diaphoresis and nausea without vomiting. Patient currently gives her pressure score of 7/10. Patient states her last stress test occurred in 2018 but her last cardiac catheterization occurred over 5 years ago. Of note the patient states she was COVID antibody positive and she believes it was when she was ill in December. The patient states she has had 2 negative COVID tests the most recent of which was performed 5 days ago ED Past Medical Hx - Past Medical History Previous Medical History?: Yes Hx Hypertension: Yes Hx Diabetes: Yes Hx GERD: Yes Hx Asthma: Yes (no inhaler for years) Additional medical history: Lupus, hypothyroidism - Surgical History Past Surgical History?: Yes Hx Cholecystectomy: Yes Additional Surgical History: Gastric bypass, thyroid surgery, partial hysterectomy, section - Family History Family history: no significant - Social History Smoking Status: Never Smoker Substance Use Type: None (Denies illicit drug use) - Medications Home Medications: Home Medications Medication Instructions Recorded Confirmed Last Taken Type Levothyroxine Sodium [Synthroid] 137 mcg PO QDAY #30 01/13/20 02/17/20 Unknown Rx Linaclotide [Linzess] 290 mcg PO DAILY 02/17/20 02/17/20 Unknown History Pantoprazole [Protonix TAB] 40 mg PO DAILY 02/17/20 02/17/20 Unknown History hydrALAZINE [Apresoline TAB] 25 mg PO DAILY 02/17/20 02/17/20 Unknown History Albuterol Mdi (or & Nicu Only) 2 puff IH QID PRN #8.5 gram 02/19/20 Unknown Rx [ProAir HFA Inhaler] Azithromycin [Zithromax Z-VELMA] 0 mg PO DAILY #1 tab 02/19/20 Unknown Rx Losartan [Cozaar] 50 mg PO QDAY #30 tablet 02/19/20 Unknown Rx guaiFENesin/DEXTROMETHORPHAN 1 each PO BID #20 tab.er.12h 02/19/20 Unknown Rx [Mucinex Dm ER 600-30 mg Tablet] ED Review of Systems ROS: Stated complaint: CHEST PAIN Other details as noted in HPI Constitutional: diaphoresis Respiratory: shortness of breath Cardiovascular: chest pain Endocrine: no symptoms reported Gastrointestinal: nausea. denies: vomiting Physical Exam - Physical Exam Vital Signs: Vital Signs 02/20/20 20:52 Temperature 98.0 F Pulse Rate 77 Respiratory 18 Rate Blood Pressure 147/83 O2 Sat by Pulse 96 Oximetry Physical Exam: GENERAL: The patient is well-developed well-nourished female lying on stretcher appearing to be in mild discomfort. [] HEENT: Normocephalic. Atraumatic. Extraocular motions are intact. Patient has moist mucous membranes. NECK: Supple. Trachea midline CHEST/LUNGS: Clear to auscultation. There is no respiratory distress noted. HEART/CARDIOVASCULAR: Regular. There is no tachycardia. There is no gallop rub or murmur. ABDOMEN: Abdomen is soft, nontender. Patient has normal bowel sounds. There is no abdominal distention. SKIN: There is no rash. There is no edema. There is no diaphoresis. NEURO: The patient is awake, alert, and oriented. The patient is cooperative. The patient has normal speech MUSCULOSKELETAL:There is no evidence of acute injury. ED Course Vital Signs 02/20/20 20:52 Temperature 98.0 F Pulse Rate 77 Respiratory 18 Rate Blood Pressure 147/83 O2 Sat by Pulse 96 Oximetry ED Medical Decision Making - Lab Data Result diagrams: 02/20/20 21:01 02/20/20 21:01 Laboratory Tests 02/20/20 02/20/20 02/20/20 21:01 21:01 21:06 WBC 4.0 L RBC 3.34 L Hgb 10.1 Hct 30.1 L MCV 90 MCH 30 MCHC 34 RDW 14.4 Plt Count 153 Lymph % (Auto) 31.5 [place] % (Auto) 9.0 H Eos % (Auto) 2.4 Baso % (Auto) 0.7 Lymph # 1.3 [place] # 0.4 Eos # 0.1 Baso # 0.0 Seg Neutrophils % 56.4 Seg Neutrophils # 2.3 Sodium 135 L Potassium 3.9 Chloride 100.2 Carbon Dioxide 23 Anion Gap 16 BUN 8 Creatinine 1.1 Estimated GFR > 60 BUN/Creatinine Ratio 7 Glucose 107 H POC Glucose 106 H Calcium 8.7 Troponin T < 0.010 - EKG Data -: EKG Interpreted by Me EKG shows normal: sinus rhythm Rate: normal - EKG Data When compared to previous EKG there are: previous EKG unavailable Interpretation: other (No ischemic changes seen) - Radiology Data Radiology results: image reviewed (Chest x-ray) interpreted by me: Chest x-ray-no focal infiltrates, no pneumothorax - Differential Diagnosis ACS, pericarditis, GERD Critical care attestation.: If time is entered above; I have spent that time in minutes in the direct care of this critically ill patient, excluding procedure time. ED Disposition Clinical Impression: Chest pain Disposition: DC-09 OP ADMIT IP TO THIS HOSP Is pt being admited?: Yes Does the pt Need Aspirin: Yes Condition: Fair Instructions: Chest Pain (ED) Referrals: PRIMARY CARE,MD [Primary Care Provider] - 3-5 Days Time of Disposition: 00:10 (Hospitalist paged (Dr Cotton))
[2020-02-21] MEDS ORDERED: NITROGLYCERIN 0.4 MG TAB SUBL SL PRN (01:42)
[2020-02-21] MEDS ORDERED: ONDANSETRON 4 MG/2 ML INJ IV PRN (01:43)
[2020-02-21] MEDS ORDERED: MORPHINE 2 MG/1 ML INJ IV PRN (01:43)
[2020-02-21] MEDS ORDERED: HEPARIN 5,000 UNIT/1 ML VIAL ONE (03:22)
[2020-02-21] MEDS: HEPARIN 5,000 UNIT/1 ML VIAL SUB-Q SCH ×3 (03:42→21:59)
[2020-02-21 05:16] LABS: Creatine Kinase MB 1.3 ng/mL (0.0-4.0)
--- NOTE | 2020-02-21 05:31 | History and Physical Report ---
History of Present Illness Date of examination: 02/21/20 Date of admission: 02/21/20 01:42 Chief complaint: CHEST PAIN History of present illness: 60 year old female presenting with substernal pressure like chest pain that radiates to the back and associated with diaphoresis, nausea but no vomiting.There is no history of fever or chills, no cough.Pain is relieved by pain meds and nitroglycerin and unaffected by deep breaths and movement. Past History Past Medical History: diabetes, GERD, hypertension, hypothyroidism, sarcoidosis (ASTHMA AND LUPUS) Past Surgical History: , thyroidectomy, hysterectomy, Other (GASTRIC BYPASS) Social history: denies: smoking, IV drug use Family history: no significant family history Medications and Allergies Allergies Allergy/AdvReac Type Severity Reaction Status Date / Time Sulfa (Sulfonamide Allergy Shortness Verified 04/11/15 01:22 Antibiotics) of Breath Home Medications Medication Instructions Recorded Confirmed Last Taken Type Levothyroxine Sodium [Synthroid] 137 mcg PO QDAY #30 01/13/20 02/21/20 Unknown Rx Linaclotide [Linzess] 290 mcg PO DAILY 02/17/20 02/21/20 Unknown History Pantoprazole [Protonix TAB] 40 mg PO DAILY 02/17/20 02/21/20 Unknown History Albuterol Mdi (or & Nicu Only) 2 puff IH QID PRN #8.5 gram 02/19/20 02/21/20 Unknown Rx [ProAir HFA Inhaler] Azithromycin [Zithromax Z-VELMA] 0 mg PO DAILY #1 tab 02/19/20 02/21/20 02/20/20 Rx Losartan [Cozaar] 50 mg PO QDAY #30 tablet 02/19/20 02/21/20 Unknown Rx Active Meds: Active Medications Aspirin (Aspirin) 325 mg PO QDAY [facility] Heparin Sodium (Porcine) (Heparin) 5,000 unit SUB-Q Q12HR [facility] Last Admin: 02/21/20 03:42 Dose: 5,000 unit Documented by: Morphine Sulfate (Morphine) 2 mg IV Q3H PRN PRN Reason: Pain, Moderate (4-6) Nitroglycerin (Nitro-Bid 2%) 0.5 inch TP QIDNTG [facility]; Protocol Nitroglycerin (Nitrostat) 0.4 mg SL .Q5MIN PRN PRN Reason: Chest Pain Ondansetron HCl (Zofran) 4 mg IV Q8H PRN PRN Reason: Nausea And Vomiting Review of Systems Constitutional: sweats, no fever, no chills, no weakness Eyes: bilateral: other (NO BILATERAL EYE SYMPTOMS) Ears, nose, mouth and throat: no ear pain, no ear discharge, no decreased hearing, no nose pain, no nasal congestion, no nasal discharge, no sinus pressure, no dysphagia, no hoarseness, no sore throat, no swelling in mouth, no swelling in throat, no headache, no vertigo, no neck fullness/pressure Breasts: deferred Cardiovascular: chest pain, shortness of breath, no palpitations, no syncope, no lightheadedness Respiratory: shortness of breath, no cough, no cough with sputum, no congestion, no pleurisy Gastrointestinal: nausea, no abdominal pain, no vomiting, no diarrhea, no constipation, no change in bowel habits, no hematemesis, no coffee ground emesis, no hematochezia Genitourinary Female: no pelvic pain, no flank pain, no menorrhagia, no dysuria, no urinary frequency, no urgency, no stress incontinence, no nocturia, no Menstruation: postmenopausal Rectal: no pain, no itching Musculoskeletal: no neck stiffness, no neck pain, no shooting arm pain, no low back pain, no morning stiffness, no muscle cramps, no myalgias, no atrophy Integumentary: no rash, no pruritis, no redness, no sores, no jaundice, no lesions, no acne Neurological: no paralysis, no weakness, no parathesias, no numbness, no seizures, no syncope, no tremors, no ataxia, no vertigo, no migraines, no convulsions, no aphasia, no change in speech, no change in mentation, no confusion Psychiatric: no anxiety, no change in appetite, no suicidal ideation, no confusi on, no irritability Endocrine: no cold intolerance, no polydipsia, no polyuria, no nocturia, no excessive sweating, no flushing, no palpatations, no high blood sugars, no low blood sugars Hematologic/Lymphatic: no easy bruising, no easy bleeding, no lymphadenopathy Allergic/Immunologic: no urticaria, no persistent infections Exam - Constitutional Vitals: Temp Pulse Resp BP Pulse Ox 98.0 F 55 L 20 132/61 97 02/21/20 04:10 02/21/20 04:10 02/21/20 04:10 02/21/20 04:10 02/21/20 04:10 General appearance: Present: mild distress - EENT Eyes: Present: PERRL, EOM intact ENT: clear oral mucosa, dentition normal - Neck Neck: Present: supple, normal ROM - Respiratory Respiratory effort: normal - Cardiovascular Heart Sounds: Present: S1 & S2, gallop. Absent: systolic murmur, diastolic murmur - Extremities Extremities: no ischemia, No edema Peripheral Pulses: within normal limits - Abdominal General gastrointestinal: Present: soft, non-tender, non-distended. Absent: tender, distended, hepatomegaly, splenomegaly Female genitourinary: Present: deferred - Rectal Rectal Exam: deferred - Integumentary Integumentary: Present: clear, warm, dry. Absent: jaundice - Musculoskeletal Musculoskeletal: strength equal bilaterally - Psychiatric Psychiatric: appropriate mood/affect HEART Score - HEART Score Age: 45-65 Risk factors: > 3 risk factors or hx of atherosclerotic disease Troponin: Troponin T < 0.010 ng/mL (0.00-0.029) 02/21/20 04:16 - Critical Actions Critical Actions: 4-6 pts:12-16.6% risk of adverse cardiac event. Should be admitted Results - Labs CBC & Chem 7: 02/20/20 21:01 02/20/20 21:01 Labs: Laboratory Last Values WBC 4.0 K/mm3 (4.5-11.0) L 02/20/20 21:01 RBC 3.34 M/mm3 (3.65-5.03) L 02/20/20 21:01 Hgb 10.1 gm/dl (10.1-14.3) 02/20/20 21:01 Hct 30.1 % (30.3-42.9) L 02/20/20 21:01 MCV 90 fl (79-97) 02/20/20 21:01 MCH 30 pg (28-32) 02/20/20 21:01 MCHC 34 % (30-34) 02/20/20 21:01 RDW 14.4 % (13.2-15.2) 02/20/20 21:01 Plt Count 153 K/mm3 (140-440) 02/20/20 21:01 Lymph % (Auto) 31.5 % (13.4-35.0) 02/20/20 21:01 Lander % (Auto) 9.0 % (0.0-7.3) H 02/20/20 21:01 Eos % (Auto) 2.4 % (0.0-4.3) 02/20/20 21:01 Baso % (Auto) 0.7 % (0.0-1.8) 02/20/20 21:01 Lymph # 1.3 K/mm3 (1.2-5.4) 02/20/20 21:01 Lander # 0.4 K/mm3 (0.0-0.8) 02/20/20 21:01 Eos # 0.1 K/mm3 (0.0-0.4) 02/20/20 21:01 Baso # 0.0 K/mm3 (0.0-0.1) 02/20/20 21:01 Seg Neutrophils % 56.4 % (40.0-70.0) 02/20/20 21:01 Seg Neutrophils # 2.3 K/mm3 (1.8-7.7) 02/20/20 21:01 Sodium 135 mmol/L (137-145) L 02/20/20 21:01 Potassium 3.9 mmol/L (3.6-5.0) 02/20/20 21:01 Chloride 100.2 mmol/L (98-107) 02/20/20 21:01 Carbon Dioxide 23 mmol/L (22-30) 02/20/20 21: Anion Gap 16 mmol/L 02/20/20 21:01 BUN 8 mg/dL (7-17) 02/20/20 21:01 Creatinine 1.1 mg/dL (0.6-1.2) 02/20/20 21:01 Estimated GFR > 60 ml/min 02/20/20 21:01 BUN/Creatinine Ratio 7 % 02/20/20 21:01 Glucose 107 mg/dL (65-100) H 02/20/20 21:01 POC Glucose 115 (70-105) H 02/21/20 00:30 Calcium 8.7 mg/dL (8.4-10.2) 02/20/20 21:01 Troponin T < 0.010 ng/mL (0.00-0.029) 02/21/20 04:16 Owens/IV: Voiding Method Toilet IV Catheter Type [left arm] Peripheral IV Assessment and Plan - Patient Problems (1) Chest pain Current Visit: Yes Status: Acute Plan to address problem: 1. TELEMETRY OBSERVATION 2. SERIAL CARDIAC ENZYMES 3. NPO AND LEXISCAN STRESS TEST 4. NITROGLYCERIN PASTE 5. I.V MORPHINE FOR PAIN 6. I.V ZOFRAN FOR NAUSEA AND VOMITING 7. TYLENOL FOR FEVER AND HEADACHE 8. OXYGEN BY NASAL CANNULA 9. ASPIRIN PO
[2020-02-21] MEDS: NITROGLYCERIN 2% OINT 1 GM TP SCH ×4 (05:51→17:34)
[2020-02-21] MEDS: ACETAMINOPHEN 325 MG TAB PO PRN ×2 (06:05→17:38)
[2020-02-21] MEDS: ASPIRIN 325 MG TAB PO SCH (09:13)
[2020-02-21] MEDS ORDERED: ALUM-MAG HYDROXIDE-SIMETHICONE 200-200-20MG/5ML ORAL LIQD 30 ML PO ONE (12:00)
--- NOTE | 2020-02-21 14:12 | Consultation ---
History of Present Illness Consult date: 02/21/20 Consult reason: chest pain History of present illness: Patient is a 60-year-old woman who presents with atypical chest pain. She de scribes nonexertional chest pain associated with coughing and movements of the thorax. She was in this hospital just last week with similar symptoms. In addition to cough, she has a persistent nasal congestion and sinus drainage. She states that the sinus congestion and cough symptoms have been ongoing since after a febrile illness 2 months ago. At that time, she did not have a clear diagnosis, but 2 weeks ago she states that she underwent a COVID antibody test that was positive, positing that her earlier symptoms must have been an undiagnosed COVID-19 infection. During her admission last week, we recommended that she be evaluated for a persistent pulmonary infection. On this presentation, ECG is normal sinus rhythm, normal ECG. Chest x-ray revealed normal-sized cardiac silhouette and clear lungs. The patient has had extensive previous cardiac ischemic work-up. A cardiac catheterization 4 years ago reported angiographically normal coronary arteries and the left ventricular ejection fraction of 65 to 70%. More recently, a year ago a Lexiscan thallium stress test was normal. Past History Past Medical History: diabetes, GERD, hypertension, hypothyroidism, sarcoidosis (ASTHMA AND LUPUS) Past Surgical History: , thyroidectomy, hysterectomy, Other (GASTRIC BYPASS) Social history: denies: smoking, IV drug use Family history: no significant family history Medications and Allergies Allergies Allergy/AdvReac Type Severity Reaction Status Date / Time Sulfa (Sulfonamide Allergy Shortness Verified 04/11/15 01:22 Antibiotics) of Breath Home Medications Medication Instructions Recorded Confirmed Last Taken Type Levothyroxine Sodium [Synthroid] 137 mcg PO QDAY #30 01/13/20 02/21/20 Unknown Rx Linaclotide [Linzess] 290 mcg PO DAILY 02/17/20 02/21/20 Unknown History Pantoprazole [Protonix TAB] 40 mg PO DAILY 02/17/20 02/21/20 Unknown History Albuterol Mdi (or & Nicu Only) 2 puff IH QID PRN #8.5 gram 02/19/20 02/21/20 Unknown Rx [ProAir HFA Inhaler] Azithromycin [Zithromax Z-VELMA] 0 mg PO DAILY #1 tab 02/19/20 02/21/20 02/20/20 Rx Losartan [Cozaar] 50 mg PO QDAY #30 tablet 02/19/20 02/21/20 Unknown Rx Active Meds: Active Medications Acetaminophen (Tylenol) 650 mg PO Q4H PRN PRN Reason: Pain, Mild (1-3) Last Admin: 02/21/20 06:05 Dose: 650 mg Documented by: Al Hydrox/Mg Hydrox/Simethicone (Alum-Mag Hydrox-Simeth [id number]/5ml) 15 ml PO QDAY PRN PRN Reason: Indigestion Aspirin (Aspirin) 325 mg PO QDAY [facility] Last Admin: 02/21/20 09:13 Dose: 325 mg Documented by: Heparin Sodium (Porcine) (Heparin) 5,000 unit SUB-Q Q12HR [facility] Last Admin: 02/21/20 09:14 Dose: 5,000 unit Documented by: Morphine Sulfate (Morphine) 2 mg IV Q3H PRN PRN Reason: Pain, Moderate (4-6) Last Admin: 02/21/20 11:16 Dose: 2 mg Documented by: Nitroglycerin (Nitro-Bid 2%) 0.5 inch TP QIDNTG [facility]; Protocol Last Admin: 02/21/20 09:00 Dose: Not Given Documented by: Nitroglycerin (Nitrostat) 0.4 mg SL .Q5MIN PRN PRN Reason: Chest Pain Ondansetron HCl (Zofran) 4 mg IV Q8H PRN PRN Reason: Nausea And Vomiting Last Admin: 02/21/20 11:19 Dose: 4 mg Documented by: Review of Systems Cardiovascular: chest pain, no orthopnea, no palpitations, no rapid/irregular heart beat, no edema, no syncope, no lightheadedness, no shortness of breath Physical Examination Vital Signs Temp Pulse Resp BP Pulse Ox 98.0 F 77 18 147/83 96 02/20/20 20:52 02/20/20 20:52 02/20/20 20:52 02/20/20 20:52 02/20/20 20:52 General appearance: no acute distress HEENT: Positive: PERRL Neck: Positive: neck supple Cardiac: Positive: Reg Rate and Rhythm Lungs: Positive: Decreased Breath Sounds Neuro: Positive: Grossly Intact Abdomen: Positive: Soft Female genitourinary: deferred Skin: Positive: Clear Extremities: Absent: edema Results 02/20/20 21:01 02/20/20 21:01 Cardiac Enzymes 02/21/20 Range/Units 04:16 CK-MB (CK-2) 1.3 (0.0-4.0) ng/mL CBC 02/20/20 Range/Units 21:01 WBC 4.0 L (4.5-11.0) K/mm3 RBC 3.34 L (3.65-5.03) M/mm3 Hgb 10.1 (10.1-14.3) gm/dl Hct 30.1 L (30.3-42.9) % Plt Count 153 (140-440) K/mm3 Lymph # 1.3 (1.2-5.4) K/mm3 Craig # 0.4 (0.0-0.8) K/mm3 Eos # 0.1 (0.0-0.4) K/mm3 Baso # 0.0 (0.0-0.1) K/mm3 Comprehensive Metabolic Panel 02/20/20 Range/Units 21:01 Sodium 135 L (137-145) mmol/L Potassium 3.9 (3.6-5.0) mmol/L Chloride 100.2 (98-107) mmol/L Carbon Dioxide 23 (22-30) mmol/L BUN 8 (7-17) mg/dL Creatinine 1.1 (0.6-1.2) mg/dL Glucose 107 H (65-100) mg/dL Calcium 8.7 (8.4-10.2) mg/dL EKG interpretations - Telemetry EKG Rhythm: Sinus Rhythm Assessment and Plan - Patient Problems (1) Chest pain Current Visit: Yes Status: Acute Plan to address problem: Patient's chest pain is atypical, associated with persistent pulmonary symptoms of cough and sinus drainage. ECG is normal and cardiac enzymes are negative. The internal medicine service has ordered a Lexiscan thallium stress test for cardiac chest pain assessment, we will supervise the Lexiscan stress test in the morning. Clinically, there is low suspicion for cardiac ischemia or acute coronary syndrome.
--- NOTE | 2020-02-21 19:20 | Event Note ---
Date: 02/21/20 Patient was admitted this morning with recurrent chest pain, patient was recently discharged Had extensive negative cardiac work-up in the past, however patient complains of recurrent chest pain During the previous admission patient was treated for acute bronchitis with a course of antibiotics Cardiology evaluation noted and appreciated possible stress test a.m. If stress test is negative and patient is stable may be discharged home tomorrow Plan of care reviewed with the patient and her nurse
[2020-02-21] MEDS: AZITHROMYCIN 250 MG TAB PO SCH (21:59)
[2020-02-22] MEDS: NITROGLYCERIN 2% OINT 1 GM TP SCH ×4 (06:01→18:43)
[2020-02-22] MEDS ORDERED: REGADENOSON 0.4 MG/5 ML INJ IV ONE ×2 (08:01→08:05)
--- NOTE | 2020-02-22 09:34 | Progress Note ---
Assessment and Plan Chest pain, atypical associated with persistent pulmonary symptoms of cough and sinus drainage. ECG is normal Cardiac enzymes are negative. Hypertension Prior cardiac tests: 12/[address] angiography at [facility]: no significant coronary artery disease with a calcium score of zero. 12/2019 Re-echo showed left ventricular ejection fraction was 55 to 60%, there was moderate mitral, mild aortic and mild tricuspid regurgitation. 09/2018 Thallium stress test was normal. 2015 [facility]: angiographically normal coronary arteries. The internal medicine service has ordered a Lexiscan thallium stress test for cardiac chest pain assessment, results are pending. Subjective Date of service: 02/22/20 Interval history: For stress thallium test today. Results are pending. Objective Vital Signs Temp Pulse Resp Resp BP Pulse Ox 02/22/20 08:05 98.3 F 60 17 146/75 97 02/22/20 04:27 98.0 F 59 L 18 118/65 98 02/22/20 04:00 18 02/21/20 23:31 98.0 F 74 18 103/58 95 02/21/20 22:00 74 20 02/21/20 19:24 98.9 F 72 20 112/56 99 02/21/20 15:59 98.1 F 63 20 147/68 97 02/21/20 10:00 53 L - Physical Examination General: No Apparent Distress HEENT: Positive: PERRL Neck: Positive: neck supple Cardiac: Positive: Reg Rate and Rhythm Lungs: Positive: Decreased Breath Sounds Neuro: Positive: Grossly Intact Abdomen: Positive: Soft Extremities: Absent: edema
[2020-02-22] MEDS ORDERED: ALUM-MAG HYDROXIDE-SIMETHICONE 200-200-20MG/5ML ORAL LIQD 30 ML PO PRN (10:00)
[2020-02-22] MEDS: HEPARIN 5,000 UNIT/1 ML VIAL SUB-Q SCH ×2 (11:56→22:14)
[2020-02-22] MEDS: ASPIRIN 325 MG TAB PO SCH (11:57)
[2020-02-22] MEDS: AZITHROMYCIN 250 MG TAB PO SCH (11:58)
[2020-02-22] MEDS: LOSARTAN 50 MG TAB PO SCH (12:15)
--- NOTE | 2020-02-22 15:04 | Discharge Summary ---
Providers - Providers Date of Admission: 02/21/20 01:42 Date of discharge: 02/23/20 Attending physician: JERRI SAWANT 02/21/20 08:00 Consult to Physician [CONS] Routine Comment: Consulting Provider: BIBI SQUIRES Physician Instructions: Reason For Exam: RECURRENT CHEST PAIN Primary care physician: IVIS VILLASEÑOR MD Hospitalization Condition: Fair Disposition: DC-01 TO HOME OR SELFCARE Time spent for discharge: 32 min Core Measure Documentation - Palliative Care Palliative Care/ Comfort Measures: Not Applicable - Core Measures Any of the following diagnoses?: none Exam - Constitutional Vitals: Temp Pulse Resp BP Pulse Ox 98.4 F 58 L 17 140/67 98 02/22/20 11:41 02/22/20 12:15 02/22/20 11:41 02/22/20 12:15 02/22/20 11:41 General appearance: Present: no acute distress, well-nourished - EENT Eyes: Present: PERRL, EOM intact - Neck Neck: Present: supple, normal ROM - Respiratory Respiratory effort: normal Respiratory: bilateral: diminished, negative: rales, rhonchi, wheezing - Cardiovascular Rhythm: regular Heart Sounds: Present: S1 & S2 - Extremities Extremities: no ischemia, No edema - Abdominal General gastrointestinal: Present: soft, non-tender, non-distended, normal bowel sounds - Integumentary Integumentary: Present: clear, warm - Musculoskeletal Musculoskeletal: strength equal bilaterally, generalized weakness - Psychiatric Psychiatric: appropriate mood/affect, cooperative - Neurologic Neurologic: moves all extremities Plan Activity: no restrictions Diet: other (Cardiac diet) Additional Instructions: If you have worsening symptoms contact MD or go to emergency room. Advised to see toolroom keeper Dr. Austin per schedule. Advised to follow with Jenna psych per schedule Follow up with: PRIMARY CAREMD [Referring] - 3-5 Days ALEXEI AUSTIN MD [Staff Physician] - 7 Days АЛЕКСАНДР PRIETO MD [Staff Physician] - 7 Days Prescriptions: ALPRAZolam [Xanax TAB] 0.25 mg PO BID PRN #10 tab PRN Reason: Anxiety
--- NOTE | 2020-02-22 17:21 | Progress Note ---
Assessment and Plan Assessment and plan: Recurrent chest pressure and discomfort Shortness of breath. Chest x-ray, recent CT chest 1 month ago negative for abnormality CT chest 1 year ago negative for PE Albuterol inhaler, supportive care Will get records from [facility] Consult pulmonary Recurrent chest pain; Cardiology evaluation noted and appreciated Stress test negative for ischemia Continue current management History of lupus; continue current management Hypothyroidism; on Synthroid Anxiety disorder; low-dose Xanax History of GERD; Protonix DVT prophylaxis; Lovenox Initially patient was discharged, however he refused to go And states that she is still having chest pressure Patient already has pulmonary appointment with Dr. Austin for tomorrow We will consult pulmonary for further evaluation management History Interval history: I have seen and examined the patient this afternoon Patient's chart and medications reviewed Patient was admitted with recurrent chest pain, cardiology evaluated Stress test is negative for ischemia, echo normal ejection fraction Cleared for discharge however patient refused to go, Complaining she continues to have severe chest pressure Hemodynamically stable Vital signs noted Hospitalist Physical - Constitutional Vitals: Temp Pulse Resp BP Pulse Ox 97.5 F L 78 17 164/85 93 02/22/20 16:15 02/22/20 16:15 02/22/20 16:15 02/22/20 16:15 02/22/20 16:15 General appearance: Present: mild distress, well-nourished - EENT Eyes: Present: PERRL, EOM intact - Neck Neck: Present: supple, normal ROM - Respiratory Respiratory effort: normal Respiratory: bilateral: diminished - Cardiovascular Rhythm: regular Heart Sounds: Present: S1 & S2 - Extremities Extremities: no ischemia, No edema - Abdominal General gastrointestinal: soft, non-tender, non-distended, normal bowel sounds - Integumentary Integumentary: Present: clear, warm - Psychiatric Psychiatric: appropriate mood/affect, cooperative - Neurologic Neurologic: CNII-XII intact, moves all extremities HEART Score - HEART Score Age: 45-65 Risk factors: > 3 risk factors or hx of atherosclerotic disease Troponin: Troponin T < 0.010 ng/mL (0.00-0.029) 02/21/20 04:16 - Critical Actions Critical Actions: 4-6 pts:12-16.6% risk of adverse cardiac event. Should be admitted Results - Labs CBC & Chem 7: 02/20/20 21:01 02/20/20 21:01 Labs: Laboratory Last Values WBC 4.0 K/mm3 (4.5-11.0) L 02/20/20 21:01 RBC 3.34 M/mm3 (3.65-5.03) L 02/20/20 21:01 Hgb 10.1 gm/dl (10.1-14.3) 02/20/20 21: Hct 30.1 % (30.3-42.9) L 02/20/20 21: MCV 90 fl (79-97) 02/20/20 21: MCH 30 pg (28-32) 02/20/20 21: MCHC 34 % (30-34) 02/20/20 21: RDW 14.4 % (13.2-15.2) 02/20/20 21: Plt Count 153 K/mm3 (140-440) 02/20/20 21:01 Lymph % (Auto) 31.5 % (13.4-35.0) 02/20/20 21:01 Marion % (Auto) 9.0 % (0.0-7.3) H 02/20/20 21:01 Eos % (Auto) 2.4 % (0.0-4.3) 02/20/20 21:01 Baso % (Auto) 0.7 % (0.0-1.8) 02/20/20 21:01 Lymph # 1.3 K/mm3 (1.2-5.4) 02/20/20 21:01 Marion # 0.4 K/mm3 (0.0-0.8) 02/20/20 21:01 Eos # 0.1 K/mm3 (0.0-0.4) 02/20/20 21:01 Baso # 0.0 K/mm3 (0.0-0.1) 02/20/20 21:01 Seg Neutrophils % 56.4 % (40.0-70.0) 02/20/20 21: Seg Neutrophils # 2.3 K/mm3 (1.8-7.7) 02/20/20 21:01 Sodium 135 mmol/L (137-145) L 02/20/20 21:01 Potassium 3.9 mmol/L (3.6-5.0) 02/20/20 21:01 Chloride 100.2 mmol/L (98-107) 02/20/20 21:01 Carbon Dioxide 23 mmol/L (22-30) 02/20/20 21:01 Anion Gap 16 mmol/L 02/20/20 21:01 BUN 8 mg/dL (7-17) 02/20/20 21:01 Creatinine 1.1 mg/dL (0.6-1.2) 02/20/20 21:01 Estimated GFR > 60 ml/min 02/20/20 21:01 BUN/Creatinine Ratio 7 % 02/20/20 21:01 Glucose 107 mg/dL (65-100) H 02/20/20 21:01 POC Glucose 117 (70-105) H 02/22/20 11:54 Calcium 8.7 mg/dL (8.4-10.2) 02/20/20 21:01 Total Creatine Kinase 138 units/L (30-135) H 02/21/20 04:16 CK-MB (CK-2) 1.3 ng/mL (0.0-4.0) 02/21/20 04:16 CK-MB (CK-2) Rel Index 0.9 (0-4) 02/21/20 04:16 Troponin T < 0.010 ng/mL (0.00-0.029) 02/21/20 04:16 Nasal Screen MRSA (PCR) Negative (Negative) 02/21/20 04:30 Owens/IV: Voiding Method Toilet IV Catheter Type [left arm] Peripheral IV Active Medications - Current Medications Current Medications: Generic Name Dose Route Start Last Admin Trade Name Bruceq PRN Reason Stop Dose Admin Acetaminophen 650 mg 02/21/20 05:55 02/21/20 17:38 Tylenol PO 650 mg Q4H PRN Administration Pain, Mild (1-3) Al Hydrox/Mg Hydrox/Simethicone 15 ml 02/22/20 10:00 Alum-Mag Hydrox-Simeth [id number]/5ml PO QDAY PRN Indigestion Aspirin 325 mg 02/21/20 10:00 02/22/20 11:57 Aspirin PO 325 mg QDAY KENNY Administration Azithromycin 250 mg 02/21/20 22:00 02/22/20 11:58 Zithromax PO 02/23/20 10:01 250 mg QDAY KENNY Administration Heparin Sodium (Porcine) 5,000 unit 02/21/20 01:30 02/22/20 11:56 Heparin SUB-Q 5,000 unit Q12HR KENNY Administration Losartan Potassium 50 mg 02/22/20 10:00 02/22/20 12:15 Cozaar PO 50 mg QDAY KENNY Administration Morphine Sulfate 2 mg 02/21/20 01:43 02/21/20 11:16 Morphine IV 2 mg Q3H PRN Administration Pain, Moderate (4-6) Nitroglycerin 0.5 inch 02/21/20 06:00 02/22/20 15:00 Nitro-Bid 2% TP 0.5 inch QIDNTG KENNY Administration Protocol Nitroglycerin 0.4 mg 02/21/20 01:42 Nitrostat SL .Q5MIN PRN Chest Pain Ondansetron HCl 4 mg 02/21/20 01:43 02/21/20 11:19 Zofran IV 4 mg Q8H PRN Administration Nausea And Vomiting
[2020-02-22] MEDS ORDERED: ALPRAZolam 0.25 MG TAB PO PRN (21:39)
[2020-02-23] MEDS: NITROGLYCERIN 2% OINT 1 GM TP SCH ×2 (06:41→09:02)
[2020-02-23 09:01] VITALS: BP 112/69
[2020-02-23] MEDS: ASPIRIN 325 MG TAB PO SCH (09:02)
[2020-02-23] MEDS: LOSARTAN 50 MG TAB PO SCH (09:02)
[2020-02-23] MEDS: AZITHROMYCIN 250 MG TAB PO SCH (09:03)
--- NOTE | 2020-02-23 09:05 | Consultation ---
History of Present Illness Consult date: 02/23/20 Requesting physician: JERRI SAWANT Reason for consult: other (chest pain with mucous production) History of present illness: 60 y/o female, with multiple visits to the ED over the last 6-8 years for chest pain, admitted now for chest pain. Patient goes back and forth between this ED and [facility]. Has had multiple imaging modalities done over the years. Patient is a very poor historian but from what I can gather she has several diagnosis that are either inaccurate or not being followed up correctly. She had gastric bypass some years ago and since then has had this recurrent chest pain. She also has been diagnosed with IBS primarily constipation and takes therapy for this (linaclotide). She claims to have lupus that is in remission and that she has asthma for which she takes no therapy for. She also sees a psychiatrist and endorses very high levels of anxiety and depression. She was diagnosed with CO VID at some point but has had several negative tests since then. She is on room air and up washing her face. She is in no distress pulmonary hardin. She does complain of cough with mucous that is draining from her sinuses. Past History Past Medical History: diabetes, GERD, hypertension, hypothyroidism, sarcoidosis (ASTHMA AND LUPUS) Past Surgical History: , thyroidectomy, hysterectomy, Other (GASTRIC BYPASS) Social history: denies: smoking, IV drug use Family history: no significant family history Medications and Allergies Allergies Allergy/AdvReac Type Severity Reaction Status Date / Time Sulfa (Sulfonamide Allergy Shortness Verified 04/11/15 01:22 Antibiotics) of Breath Home Medications Medication Instructions Recorded Confirmed Last Taken Type Levothyroxine Sodium [Synthroid] 137 mcg PO QDAY #30 01/13/20 02/21/20 Unknown Rx Linaclotide [Linzess] 290 mcg PO DAILY 02/17/20 02/21/20 Unknown History Pantoprazole [Protonix TAB] 40 mg PO DAILY 02/17/20 02/21/20 Unknown History Albuterol Mdi (or & Nicu Only) 2 puff IH QID PRN #8.5 gram 02/19/20 02/21/20 Unknown Rx [ProAir HFA Inhaler] Azithromycin [Zithromax Z-VELMA] 0 mg PO DAILY #1 tab 02/19/20 02/21/20 02/20/20 Rx Losartan [Cozaar] 50 mg PO QDAY #30 tablet 02/19/20 02/21/20 Unknown Rx ALPRAZolam [Xanax TAB] 0.25 mg PO BID PRN #10 tab 02/22/20 Unknown Rx Active Meds: Active Medications Acetaminophen (Tylenol) 650 mg PO Q4H PRN PRN Reason: Pain, Mild (1-3) Last Admin: 02/21/20 17:38 Dose: 650 mg Documented by: Al Hydrox/Mg Hydrox/Simethicone (Alum-Mag Hydrox-Simeth [id number]/5ml) 15 ml PO QDAY PRN PRN Reason: Indigestion Alprazolam (Xanax) 0.25 mg PO Q8H PRN PRN Reason: Anxiety Last Admin: 02/22/20 22:14 Dose: 0.25 mg Documented by: Aspirin (Aspirin) 325 mg PO QDAY [facility] Last Admin: 02/22/20 11:57 Dose: 325 mg Documented by: Azithromycin (Zithromax) 250 mg PO QDAY [facility] Stop: 02/23/20 10:01 Last Admin: 02/22/20 11:58 Dose: 250 mg Documented by: Heparin Sodium (Porcine) (Heparin) 5,000 unit SUB-Q Q12HR [facility] Last Admin: 02/22/20 22:14 Dose: 5,000 unit Documented by: Losartan Potassium (Cozaar) 50 mg PO QDAY [facility] Last Admin: 02/22/20 12:15 Dose: 50 mg Documented by: Morphine Sulfate (Morphine) 2 mg IV Q3H PRN PRN Reason: Pain, Moderate (4-6) Last Admin: 02/21/20 11:16 Dose: 2 mg Documented by: Nitroglycerin (Nitro-Bid 2%) 0.5 inch TP QIDNTG [facility]; Protocol Last Admin: 02/23/20 06:41 Dose: Not Given Documented by: Nitroglycerin (Nitrostat) 0.4 mg SL .Q5MIN PRN PRN Reason: Chest Pain Ondansetron HCl (Zofran) 4 mg IV Q8H PRN PRN Reason: Nausea And Vomiting Last Admin: 02/21/20 11:19 Dose: 4 mg Documented by: Review of Systems All systems: negative Physical Examination Vital signs: Vital Signs Temp Pulse Resp BP Pulse Ox 98.0 F 77 18 147/83 96 02/20/20 20:52 02/20/20 20:52 02/20/20 20:52 02/20/20 20:52 02/20/20 20:52 General appearance: no acute distress, alert Eyes: non-icteric ENT: oropharynx moist Neck: supple Effort: normal Ascultation: Bilateral: clear Results - Laboratory Findings CBC and BMP: 02/20/20 21:01 02/20/20 21:01 Abnormal lab findings: Abnormal Labs 02/20/20 02/20/20 02/20/20 21:01 21:01 21:06 WBC 4.0 L RBC 3.34 L Hct 30.1 L [place] % (Auto) 9.0 H Sodium 135 L Glucose 107 H POC Glucose 106 H Total Creatine Kinase 02/21/20 02/21/20 02/21/20 00:30 04:16 09:28 WBC RBC Hct [place] % (Auto) Sodium Glucose POC Glucose 115 H 141 H Total Creatine Kinase 138 H 02/21/20 02/22/20 02/22/20 11:00 11:54 21:34 WBC RBC Hct [place] % (Auto) Sodium Glucose POC Glucose 125 H 117 H 167 H Total Creatine Kinase - Diagnostic Findings Chest x-ray: image reviewed Assessment and Plan 60 y/o with atypical chest discomfort and mucous production with cough. 1. Suggest increasing PPI to BID 2. May need to even add H2 eddie at night 3. Patient needs cognitive behavioral therapy. She is already seeing Psych, but I do not believe she has been completely honest with them about all of her symptoms. She readily admits to severe anxiety and when she is nervous, all of these symptoms appear. She was treated with Trazaodone by [facility] in either or and stayed away from the ED and hospital for almost a year. Would consider SSRI, Triptylline therapy or defer to psych for help. 4. Told her to reschedule with [facility] for full PFT 5. Nothing pulm hardin to do for her inpatient. Will sign off.
--- NOTE | 2020-02-23 09:52 | Progress Note ---
Assessment and Plan Chest pain, atypical ECG is normal Cardiac enzymes are negative. Normal stress thallium test this admission Hypertension Prior cardiac tests: 12/[address] angiography at [facility]: no significant coronary artery disease with a calcium score of zero. 12/2019 Re-echo showed left ventricular ejection fraction was 55 to 60%, there was moderate mitral, mild aortic and mild tricuspid regurgitation. 09/2018 Thallium stress test was normal. 2014 [facility]: angiographically normal coronary arteries. No further cardiac workup indicated. Will follow intermittently. Subjective Date of service: 02/23/20 Interval history: Patient is up walking around in the room. No distress noted. Objective Vital Signs Temp Pulse Resp BP BP Pulse Ox 02/23/20 09:02 94 H 112/69 02/23/20 09:01 94 H 02/23/20 07:51 98.1 F 64 18 112/69 100 02/23/20 04:35 97.6 F 60 16 100/69 99 02/22/20 23:45 97.9 F 67 16 95/55 96 02/22/20 22:00 89 18 02/22/20 20:46 98.1 F 89 18 125/82 94 02/22/20 18:48 151/80 02/22/20 18:43 78 164/85 02/22/20 16:15 97.5 F L 78 17 164/85 93 02/22/20 16:10 84 02/22/20 15:00 56 L 130/58 02/22/20 12:15 58 L 140/67 02/22/20 11:58 54 L 140/67 02/22/20 11:41 98.4 F 54 L 17 140/67 98 02/22/20 11:38 98.4 F 55 L 17 140/67 99 02/22/20 10:09 163/77 02/22/20 10:08 157/77 02/22/20 10:07 170/75 02/22/20 10:06 176/82 02/22/20 10:05 188/80 - Physical Examination General: No Apparent Distress HEENT: Positive: PERRL Neck: Positive: neck supple Cardiac: Positive: Reg Rate and Rhythm Lungs: Positive: Decreased Breath Sounds Neuro: Positive: Grossly Intact Abdomen: Positive: Soft Extremities: Absent: edema
--- NOTE | 2020-02-23 10:27 | Treadmill Report ---
THALLIUM STRESS TEST LEFT VENTRICLE: Left ventricular chamber size is within normal spread. Perfusion study demonstrates homogeneous uptake of the tracer in all segments, no significant defects identified. Gated analysis demonstrates normal left ventricular systolic function, ejection fraction 68%. CONCLUSION: Normal myocardial perfusion study. JOB# [id number] CA/NTS
--- NOTE | 2020-02-24 10:38 | XRay Report ---
XR chest routine 2V INDICATION / CLINICAL INFORMATION: Chest Pain. COMPARISON: 02/17/2020 FINDINGS: SUPPORT DEVICES: Unchanged. HEART / MEDIASTINUM: Unchanged. LUNGS / PLEURA: Lung parenchyma is not significantly changed. Costophrenic sulci are sharp. No pneu mothorax. ADDITIONAL FINDINGS: No significant additional findings. IMPRESSION: 1. No significant cardiothoracic abnormality. Signer Name: Zach Marrufo MD Signed: 02/20/2020 9:29 PM Workstation Name: [id number]
== END 2020-02-23 10:07 | disposition home or self-care (01) ==
LOC: ED 20:38 → 4A 02-21 01:42
PROVIDERS: ADMIT Internal Medicine; ATTEND Internal Medicine
DX: R07.89 Other chest pain (principal); E11.9 Type 2 diabetes mellitus without complications; I10 Essential (primary) hypertension; K21.9 Gastro-esophageal reflux disease without esophagitis; E03.9 Hypothyroidism, unspecified; J45.909 Unspecified asthma, uncomplicated; F41.9 Anxiety disorder, unspecified; M32.9 Systemic lupus erythematosus, unspecified; Z90.710 Acquired absence of both cervix and uterus; Z90.89 Acquired absence of other organs; Z98.84 Bariatric surgery status; Z79.899 Other long term (current) drug therapy; Z88.2 Allergy status to sulfonamides
CPT/HCPCS: 36415; 71046; 78452; 80048; 82550; 82553; 82962; 84484; 85025; 87641; 93005; 93017; 96372; 96374; 96375; 96376; 99285; A9502; G0378; J1644; J2270; J2405; J2785; J3010

== ENCOUNTER 2020-09-14 11:32 | Observation (INO) | payer MEDICARE ==
--- NOTE | 2020-09-14 12:11 | Event Note ---
ED Screening Note ED Screening Note: 60-year-old F Cambodian female resents emerged department complaining of having abdominal pain and possible issue with her feeding tube of unknown etiology stating that she is smelling some some feces. She also reports having pain to the epigastric region associated with nausea. Currently she is complaining of having left chest pressure off and on radiates to the substernal area associated with vague shortness of breath. Reports no hemoptysis, hematemesis no hematochezia. This initial assessment/diagnostic orders/clinical plan/treatment(s) is/are subject to change based on patients health status, clinical progression and re- assessment by fellow clinical providers in the ED. Further treatment and workup at subsequent clinical providers discretion. Patient/guardian urged not to elope from the ED as their condition may be serious if not clinically assessed and managed. Initial orders include: Evaluate for abdominal pain and chest pain. With chest x-ray EKG and labs. Will be reevaluated in the to to determine the need for a CT scan
[2020-09-14] MEDS ORDERED: ONDANSETRON 4 MG/2 ML INJ IV ONE (12:32)
[2020-09-14] MEDS ORDERED: fentaNYL 100 MCG/2 ML INJ IV ONE (12:32)
[2020-09-14] MEDS ORDERED: LIDOCAINE VISCOUS 2% 15 ML ORAL LIQD PO ONE (12:33)
[2020-09-14] MEDS ORDERED: ASPIRIN 325 MG TAB PO ONE (12:33)
--- NOTE | 2020-09-14 12:39 | Emergency Department Report ---
HPI - General Chief Complaint: Abdominal Pain Time Seen by Provider: 09/14/20 12:21 - HPI HPI: Room 44 The patient is a 60-year-old female present with a chief complaint of chest pain and "throat congestion." The patient states she is currently on clindamycin for "an infection of the feeding tube." The patient states last night she developed left-sided chest pain described as a pressure and soreness associated with shortness of breath, diaphoresis and nausea/vomiting. The pain is been intermittent she currently gives it a score 7-8/10. The patient's she also has to frequently clear her throat for the past several days. The patient states her last cardiac catheterization was in 2015 ED Past Medical Hx - Past Medical History Hx Hypertension: Yes Hx Heart Attack/AMI: Yes Hx Diabetes: Yes Hx GERD: Yes Hx Asthma: Yes Additional medical history: Lupus, hypothyroidism - Surgical History Hx Cholecystectomy: Yes Additional Surgical History: Gastric bypass, thyroid surgery, partial hystere ctomy, section. Feeding tube - Family History Family history: no significant - Social History Smoking Status: Never Smoker Substance Use Type: None (Denies illicit drug use) - Medications Home Medications: Home Medications Medication Instructions Recorded Confirmed Last Taken Type Levothyroxine Sodium [Synthroid] 137 mcg PO QDAY #30 01/13/20 02/21/20 Unknown Rx Linaclotide [Linzess] 290 mcg PO DAILY 02/17/20 02/21/20 Unknown History Pantoprazole [Protonix TAB] 40 mg PO DAILY 02/17/20 02/21/20 Unknown History Albuterol Mdi (or & Nicu Only) 2 puff IH QID PRN #8.5 gram 02/19/20 02/21/20 Unknown Rx [ProAir HFA Inhaler] Azithromycin [Zithromax Z-VELMA] 0 mg PO DAILY #1 tab 02/19/20 02/21/20 02/20/20 Rx Losartan [Cozaar] 50 mg PO QDAY #30 tablet 02/19/20 02/21/20 Unknown Rx ALPRAZolam [Xanax TAB] 0.25 mg PO BID PRN #10 tab 02/22/20 Unknown Rx ED Review of Systems ROS: Stated complaint: CHEST/STOMACH PAIN TUBE INFECTION Other details as noted in HPI Constitutional: diaphoresis Eyes: denies: eye pain ENT: throat pain Respiratory: shortness of breath Cardiovascular: chest pain Endocrine: no symptoms reported Gastrointestinal: nausea, vomiting Genitourinary: denies: dysuria Musculoskeletal: denies: back pain Neurological: denies: headache Physical Exam - Physical Exam Vital Signs: Vital Signs 09/14/20 11:39 Temperature 98.2 F Respiratory 20 Rate Blood Pressure 187/101 Physical Exam: GENERAL: The patient is well-developed well-nourished female lying on stretcher not appearing to be in acute distress. [] HEENT: Normocephalic. Atraumatic. Extraocular motions are intact. Patient has moist mucous membranes. NECK: Supple. Trachea midline CHEST/LUNGS: Clear to auscultation. There is no respiratory distress noted. HEART/CARDIOVASCULAR: Regular. There is no tachycardia. There is no gallop rub or murmur. ABDOMEN: Abdomen is soft, with mild epigastric discomfort. There is no rebound or guarding. There is no cellulitis apparent at feeding tube insertion site. There is no tenderness at feeding tube insertion site. Patient has normal bowel sounds. There is no abdominal distention. SKIN: There is no rash. There is no edema. There is no diaphoresis. NEURO: The patient is awake, alert, and oriented. The patient is cooperative. The patient has no focal neurologic deficits. The patient has normal speech MUSCULOSKELETAL: There is no evidence of acute injury. ED Course Vital Signs 09/14/20 11:39 Temperature 98.2 F Respiratory 20 Rate Blood Pressure 187/101 ED Medical Decision Making - Lab Data Result diagrams: 09/14/20 12:13 09/14/20 12:13 Laboratory Tests 09/14/20 09/14/20 09/14/20 12:13 12:13 12:13 WBC 3.0 L RBC 4.00 Hgb 11.8 Hct 35.6 MCV 89 MCH 30 MCHC 33 RDW 16.7 H Plt Count 169 Lymph % (Auto) 27.7 [place] % (Auto) 8.8 H Eos % (Auto) 2.2 Baso % (Auto) 1.0 Lymph # (Auto) 0.8 L [place] # (Auto) 0.3 Eos # (Auto) 0.1 Baso # (Auto) 0.0 Seg Neutrophils % 60.3 Seg Neutrophils # 1.8 Sodium 137 Potassium 4.3 Chloride 102.7 Carbon Dioxide 28 Anion Gap 11 BUN 6 L Creatinine 1.0 Estimated GFR > 60 BUN/Creatinine Ratio 6 Glucose 128 H Calcium 9.3 Total Bilirubin 0.50 AST 28 ALT 23 Alkaline Phosphatase 96 Troponin T < 0.010 Total Protein 7.5 Albumin 4.1 Albumin/Globulin Ratio 1.2 Lipase 14 Urine Color Urine Turbidity Urine pH Ur Specific [place] Urine Protein Urine Glucose (UA) Urine Ketones Urine Blood Urine Nitrite Urine Bilirubin Urine Urobilinogen Ur Leukocyte Esterase Urine WBC (Auto) Urine RBC (Auto) U Epithel Cells (Auto) Urine Bacteria (Auto) 09/14/20 Unknown WBC RBC Hgb Hct MCV MCH MCHC RDW Plt Count Lymph % (Auto) [place] % (Auto) Eos % (Auto) Baso % (Auto) Lymph # (Auto) [place] # (Auto) Eos # (Auto) Baso # (Auto) Seg Neutrophils % Seg Neutrophils # Sodium Potassium Chloride Carbon Dioxide Anion Gap BUN Creatinine Estimated GFR BUN/Creatinine Ratio Glucose Calcium Total Bilirubin AST ALT Alkaline Phosphatase Troponin T Total Protein Albumin Albumin/Globulin Ratio Lipase Urine Color Straw Urine Turbidity Clear Urine pH 7.0 Ur Specific [place] 1.003 Urine Protein <15 mg/dl Urine Glucose (UA) Neg Urine Ketones Neg Urine Blood Neg Urine Nitrite Neg Urine Bilirubin Neg Urine Urobilinogen < 2.0 Ur Leukocyte Esterase Neg Urine WBC (Auto) 1.0 Urine RBC (Auto) 1.0 U Epithel Cells (Auto) 2.0 Urine Bacteria (Auto) 1+ - EKG Data -: EKG Interpreted by Me EKG shows normal: sinus rhythm Rate: normal - EKG Data When compared to previous EKG there are: previous EKG unavailable Interpretation: nonspecific ST-T wave belen (T wave inversion lead V2) - Radiology Data Radiology results: report reviewed (Chest x-ray), image reviewed (Chest x-ray) interpreted by me: Chest x-ray-no focal infiltrates, no pneumothorax. No foreign body seen [facility] [address] [place] [address] X Ray Report Signed Patient: DAVIN ESPINOZA MR#: [id number] : 1960 Acct:[id number] Age/Sex: 60 / F ADM Date: 09/14/20 Loc: ED Attending Dr: Ordering Physician: SAIGE DE LA CRUZ Date of Service: 09/14/20 Procedure(s): XR chest 1V ap Accession Number(s): [id number] cc: SAIGE DE LA CRUZ Fluoro Time In Minutes: CHEST 1 VIEW 09/14/2020 12:48 PM INDICATION / CLINICAL INFORMATION: chest pain. COMPARISON: 02/20/2020 FINDINGS: SUPPORT DEVICES: None. HEART / MEDIASTINUM: No significant abnormality. LUNGS / PLEURA: No significant pulmonary or pleural abnormality. No pneumothorax. ADDITIONAL FINDINGS: No significant additional findings. IMPRESSION: 1. No acute findings. Signer Name: Anoop Hogue MD Signed: 09/14/2020 1:49 PM Workstation Name: [id number] Transcribed By: JNUIOR Dictated By: Anoop Hogue MD Electronically Authenticated By: Anoop Hogue MD Signed Date/Time: 09/14/201348 DD/ 47 TD/TT: - Differential Diagnosis Chest pain, ACS, pericarditis, GERD Critical care attestation.: If time is entered above; I have spent that time in minutes in the direct care of this critically ill patient, excluding procedure time. ED Disposition Clinical Impression: Chest pain Disposition: 09 OP ADMIT IP TO THIS HOSP Is pt being admited?: Yes Does the pt Need Aspirin: Yes Condition: Fair Instructions: Chest Pain (ED), Abdominal Pain (ED) Time of Disposition: 14:27 (Hospitalist paged (Dr. Matthews)) Heart Score - HEART Score History: Moderately suspicious EKG: Non-specific Age: 45-65 Risk factors: > 3 risk factors or hx of atherosclerotic disease Troponin: < normal limit HEART Score: 5
[2020-09-14 12:55] LABS: Eosinophils # (Auto) 0.1 K/mm3 (0.0-0.4); Eosinophils % (Auto) 2.2 % (0.0-4.3); Hematocrit 35.6 % (30.3-42.9); Hemoglobin 11.8 gm/dl (10.1-14.3); Lymphocytes # (Auto) 0.8 K/mm3 (1.2-5.4); Lymphocytes % (Auto) 27.7 % (13.4-35.0); Mean Corpuscular HGB Conc 33 % (30-34); Mean Corpuscular Volume 89 fl (79-97); Monocytes # (Auto) 0.3 K/mm3 (0.0-0.8); Monocytes % (Auto) 8.8 % (0.0-7.3); Platelet Count 169 K/mm3 (140-440); Red Cell Distribution Width 16.7 % (13.2-15.2)
[2020-09-14 13:18] LABS: Alanine Aminotransferase 23 units/L (7-56); Albumin 4.1 g/dL (3.9-5); BUN/Creatinine Ratio 6; Blood Urea Nitrogen 6 mg/dL (7-17); Calcium 9.3 mg/dL (8.4-10.2); Hemolysis Index 32
--- NOTE | 2020-09-14 13:54 | XRay Report ---
CHEST 1 VIEW 09/14/2020 12:48 PM INDICATION / CLINICAL INFORMATION: chest pain. COMPARISON: 02/20/2020 FINDINGS: SUPPORT DEVICES: None. HEART / MEDIASTINUM: No significant abnormality. LUNGS / PLEURA: No significant pulmonary or pleural abnormality. No pneumothorax. ADDITIONAL FINDINGS: No significant additional findings. IMPRESSION: 1. No acute findings. Signer Name: Anoop Hogue MD Signed: 09/14/2020 1:49 PM Workstation Name: [id number]
[2020-09-14 14:03] LABS: Bacteria,Urine 1+ /HPF (Negative); Bilirubin,Urine NEG (Negative); Blood,Urine NEG (Negative); Color,Urine Straw (Yellow); Protein,Urine <15 mg/dL mg/dL (Negative); Urobilinogen,Urine < 2.0 mg/dL (<2.0)
[2020-09-14] MEDS ORDERED: NITROGLYCERIN 2% OINT 1 GM TP ONE (14:26)
[2020-09-14] MEDS ORDERED: HYDROmorphone 1 MG/1 ML INJ IV PRN (15:51)
[2020-09-14 16:06] LABS: Bilirubin,Direct < 0.2 mg/dL (0-0.2)
[2020-09-14] MEDS: hydrALAZINE 20 MG/1 ML INJ IV PRN ×2 (16:12→22:07)
[2020-09-14] MEDS: ONDANSETRON 4 MG/2 ML INJ IV PRN ×2 (16:13→21:06)
[2020-09-14] MEDS ORDERED: FAMOTIDINE 20 MG/2 ML INJ IV ONE (18:00)
[2020-09-14] MEDS: ALPRAZolam 1 MG TAB PO PRN (21:05)
[2020-09-14] MEDS ORDERED: NON-FORMULARY EACH (Hydrocodone/Acetaminophen [Hydrocodone-Acetamin 5-300 Mg] 1 EACH Table PO PRN (23:39)
[2020-09-14] MEDS ORDERED: ALPRAZolam 1 MG TAB PO PRN (23:39)
--- NOTE | 2020-09-14 23:39 | History and Physical Report ---
History of Present Illness Date of examination: 09/14/20 Date of admission: 09/14/20 14:28 Chief complaint: Chest positive last night History of present illness: 60-year-old female with history of severe acne hernia and severe reflux esophagitis and difficulty swallowing for 6 months comes in for chest pain since a.m. Patient has a PEG tube for hydration. Patient eats soft food by mouth. Says she has a feeling that it is getting stuck in the mid chest region. Also chest pain. No diaphoresis no shortness of breath. Has severe reflux symptoms and is on PPIs. No vomiting. Just reflux of acid into the throat. She had hiatal surgical hernia surgery in July. Has some relief but has difficulty swallowing. No orthopnea. No shortness of breath. No diaphoresis. No acute exacerbating factors. Not eating is a relieving factor. - Past Medical History --Hypertension: Yes --Heart Attack/AMI: Yes --Diabetes: Yes --GERD: Yes --Asthma: Yes Additional medical history: Lupus, hypothyroidism - Surgical History --Cholecystectomy: Yes Additional Surgical History: Gastric bypass, thyroid surgery, partial hysterectomy, section. Feeding tube - Family History Family history: no significant - Social History Smoking Status: Never Smoker Substance Use Type: None (Denies illicit drug use) - Medications Home Medications: Home Medications Medication Instructions Recorded Confirmed Last Taken Type Levothyroxine Sodium Synthroid 137 mcg PO QDAY #30 01/13/20 02/21/20 Unknown Rx Linaclotide Linzess 290 mcg PO DAILY 02/17/20 02/21/20 Unknown History Pantoprazole Protonix TAB 40 mg PO DAILY 02/17/20 02/21/20 Unknown History Albuterol Mdi (or & Nicu Only) 2 puff IH QID PRN #8.5 gram 02/19/20 02/21/20 Unknown Rx ProAir HFA Inhaler Azithromycin Zithromax Z-VELMA 0 mg PO DAILY #1 tab 02/19/20 02/21/20 02/20/20 Rx Losartan Cozaar 50 mg PO QDAY #30 tablet 02/19/20 02/21/20 Unknown Rx ALPRAZolam Xanax TAB 0.25 mg PO BID PRN #10 tab 02/22/20 Unknown Rx Review of Systems ROS: Stated complaint: CHEST/STOMACH PAIN TUBE INFECTION Other details as noted in HPI Constitutional: diaphoresis Eyes: denies: eye pain ENT: throat pain Respiratory: shortness of breath Cardiovascular: chest pain Endocrine: no symptoms reported Gastrointestinal: nausea, vomiting Genitourinary: denies: dysuria Musculoskeletal: denies: back pain Neurological: denies: headache Medications and Allergies Allergies Allergy/AdvReac Type Severity Reaction Status Date / Time Sulfa (Sulfonamide Allergy Shortness Verified 09/14/20 11:40 Antibiotics) of Breath Home Medications Medication Instructions Recorded Confirmed Last Taken Type ALPRAZolam [Xanax TAB] 1 mg PO TID PRN 09/14/20 09/14/20 Unknown History Amitriptyline HCl 150 mg PO QDAY 09/14/20 09/14/20 Unknown History AtorvaSTATin [Lipitor] 40 mg PO QHS 09/14/20 09/14/20 Unknown History Citalopram Hydrobromide 40 mg PO QDAY 09/14/20 09/14/20 Unknown History [Citalopram HBr] Clindamycin [Clindamycin CAP] 3 cap PO TID PRN 09/14/20 09/14/20 Unknown History Dexlansoprazole [Dexilant] 60 mg PO QDAY 09/14/20 09/14/20 Unknown History HYDROcodone/ACETAMINOPHEN 1 each PO Q6HR PRN 09/14/20 09/14/20 Unknown History [Hydrocodone-Acetamin 5-300 mg] Ipratropium 0.06% [Atrovent] 2 spray NS Q8HR 09/14/20 09/14/20 Unknown History Levothyroxine Sodium 137 mcg PO QDAY 09/14/20 09/14/20 Unknown History [Levothyroxine] Losartan [Cozaar] 50 mg PO QDAY 09/14/20 09/14/20 Unknown History Omeprazole 40 mg PO QDAY 09/14/20 09/14/20 Unknown History Oseltamivir Phosphate [Tamiflu] 45 mg PO QDAY 09/14/20 09/14/20 Unknown History Promethazine [Phenergan] 25 mg PO Q6HR PRN 09/14/20 09/14/20 Unknown History Spironolactone [Aldactone] 25 mg PO QDAY 09/14/20 09/14/20 Unknown History cloNIDine [Catapres] 0.1 mg PO QHS 09/14/20 09/14/20 Unknown History hydrALAZINE [Apresoline] 25 mg PO BID 09/14/20 09/14/20 Unknown History Active Meds: Active Medications Alprazolam (Alprazolam 1 Mg Tab) 1 mg PO Q8H PRN PRN Reason: Anxiety Last Admin: 09/14/20 21:05 Dose: 1 mg Documented by: Hydralazine HCl (Hydralazine 20 Mg/1 Ml Inj) 10 mg IV Q4HR PRN PRN Reason: Hypertension Last Admin: 09/14/20 22:07 Dose: 10 mg Documented by: Hydromorphone HCl (Hydromorphone 1 Mg/1 Ml Inj) 0.5 mg IV Q3H PRN PRN Reason: Pain , Severe (7-10) Last Admin: 09/14/20 16:13 Dose: 0.5 mg Documented by: Ondansetron HCl (Ondansetron 4 Mg/2 Ml Inj) 4 mg IV Q4H PRN PRN Reason: Nausea And Vomiting Last Admin: 09/14/20 21:06 Dose: 4 mg Documented by: Pantoprazole Sodium (Pantoprazole 40 Mg Tab) 40 mg PO ONCE ONE Stop: 09/15/20 15:56 Exam - Constitutional Vitals: Temp Pulse Resp BP Pulse Ox 99.4 F 81 20 165/87 95 09/14/20 20:00 09/14/20 22:07 09/14/20 20:00 09/14/20 22:07 09/14/20 20:00 General appearance: Present: no acute distress, well-nourished - EENT Eyes: Present: PERRL ENT: hearing intact, clear oral mucosa - Neck Neck: Present: supple, normal ROM - Respiratory Respiratory effort: normal Respiratory: bilateral: CTA - Cardiovascular Heart rate: 78 Rhythm: regular Heart Sounds: Present: S1 & S2. Absent: rub, click - Extremities Extremities: pulses symmetrical, No edema Peripheral Pulses: within normal limits - Abdominal General gastrointestinal: Present: soft, non-tender, non-distended, normal bowel sounds Female genitourinary: Present: normal - Rectal Rectal Exam: deferred - Integumentary Integumentary: Present: clear, warm, dry - Musculoskeletal Musculoskeletal: gait normal, strength equal bilaterally - Psychiatric Psychiatric: appropriate mood/affect, intact judgment & insight - Neurologic Neurologic: CNII-XII intact, moves all extremities - Allied Health Allied health notes reviewed: nursing, case management HEART Score - HEART Score History: Moderately suspicious EKG: Non-specific Age: 45-65 Risk factors: > 3 risk factors or hx of atherosclerotic disease Troponin: Troponin T < 0.010 ng/mL (0.00-0.029) 09/14/20 12:13 Troponin: < normal limit HEART Score: 5 - Critical Actions Critical Actions: 4-6 pts:12-16.6% risk of adverse cardiac event. Should be admitted Results - Labs CBC & Chem 7: 09/14/20 12:13 09/14/20 12:13 Labs: Laboratory Last Values WBC 3.0 K/mm3 (4.5-11.0) L 09/14/20 12:13 RBC 4.00 M/mm3 (3.65-5.03) 09/14/20 12:13 Hgb 11.8 gm/dl (10.1-14.3) 09/14/20 12:13 Hct 35.6 % (30.3-42.9) 09/14/20 12:13 MCV 89 fl (79-97) 09/14/20 12:13 MCH 30 pg (28-32) 09/14/20 12:13 MCHC 33 % (30-34) 09/14/20 12:13 RDW 16.7 % (13.2-15.2) H 09/14/20 12:13 Plt Count 169 K/mm3 (140-440) 09/14/20 12:13 Lymph % (Auto) 27.7 % (13.4-35.0) 09/14/20 12:13 [place] % (Auto) 8.8 % (0.0-7.3) H 09/14/20 12:13 Eos % (Auto) 2.2 % (0.0-4.3) 09/14/20 12:13 Baso % (Auto) 1.0 % (0.0-1.8) 09/14/20 12:13 Lymph # (Auto) 0.8 K/mm3 (1.2-5.4) L 09/14/20 12:13 [place] # (Auto) 0.3 K/mm3 (0.0-0.8) 09/14/20 12:13 Eos # (Auto) 0.1 K/mm3 (0.0-0.4) 09/14/20 12:13 Baso # (Auto) 0.0 K/mm3 (0.0-0.1) 09/14/20 12:13 Seg Neutrophils % 60.3 % (40.0-70.0) 09/14/20 12:13 Seg Neutrophils # 1.8 K/mm3 (1.8-7.7) 09/14/20 12:13 Sodium 137 mmol/L (137-145) 09/14/20 12:13 Potassium 4.3 mmol/L (3.6-5.0) 09/14/20 12:13 Chloride 102.7 mmol/L (98-107) 09/14/20 12:13 Carbon Dioxide 28 mmol/L (22-30) 09/14/20 12:13 Anion Gap 11 mmol/L 09/14/20 12:13 BUN 6 mg/dL (7-17) L 09/14/20 12:13 Creatinine 1.0 mg/dL (0.6-1.2) 09/14/20 12:13 Estimated GFR > 60 ml/min 09/14/20 12:13 BUN/Creatinine Ratio 6 % 09/14/20 12:13 Glucose 128 mg/dL (65-100) H 09/14/20 12:13 POC Glucose 109 mg/dL (70-105) H 09/14/20 19:57 Calcium 9.3 mg/dL (8.4-10.2) 09/14/20 12:13 Total Bilirubin 0.50 mg/dL (0.1-1.2) 09/14/20 12:13 Direct Bilirubin < 0.2 mg/dL (0-0.2) 09/14/20 12:13 Indirect Bilirubin 0.3 mg/dL 09/14/20 12:13 AST 28 units/L (5-40) 09/14/20 12:13 ALT 23 units/L (7-56) 09/14/20 12:13 Alkaline Phosphatase 96 units/L (35-129) 09/14/20 12:13 Troponin T < 0.010 ng/mL (0.00-0.029) 09/14/20 12:13 Total Protein 7.5 g/dL (6.3-8.2) 09/14/20 12:13 Albumin 4.1 g/dL (3.9-5) 09/14/20 12:13 Albumin/Globulin Ratio 1.2 % 09/14/20 12:13 Lipase 14 units/L (13-60) 09/14/20 12:13 Urine Color Straw (Yellow) 09/14/20 Unknown Urine Turbidity Clear (Clear) 09/14/20 Unknown Urine pH 7.0 (5.0-7.0) 09/14/20 Unknown Ur Specific [place] 1.003 (1.003-1.030) 09/14/20 Unknown Urine Protein <15 mg/dl mg/dL (Negative) 09/14/20 Unknown Urine Glucose (UA) Neg mg/dL (Negative) 09/14/20 Unknown Urine Ketones Neg mg/dL (Negative) 09/14/20 Unknown Urine Blood Neg (Negative) 09/14/20 Unknown Urine Nitrite Neg (Negative) 09/14/20 Unknown Urine Bilirubin Neg (Negative) 09/14/20 Unknown Urine Urobilinogen < 2.0 mg/dL (<2.0) 09/14/20 Unknown Ur Leukocyte Esterase Neg (Negative) 09/14/20 Unknown Urine WBC (Auto) 1.0 /HPF (0.0-6.0) 09/14/20 Unknown Urine RBC (Auto) 1.0 /HPF (0.0-6.0) 09/14/20 Unknown U Epithel Cells (Auto) 2.0 /HPF (0-13.0) 09/14/20 Unknown Urine Bacteria (Auto) 1+ /HPF (Negative) 09/14/20 Unknown - Imaging and Cardiology EKG: report reviewed (Sinus rhythm no acute ST-T wave change) Assessment and Plan Advance Directives: Yes (Full code) VTE prophylaxis?: Chemical Plan of care discussed with patient/family: Yes - Patient Problems (1) ACS (acute coronary syndrome) Current Visit: No Status: Acute Plan to address problem: Given her age and risk factors we will get the serial troponins and Lexiscan in the morning to rule out ischemia from coronary artery disease. Severe reflux may be contributing to the chest pain. (2) Dysphagia Current Visit: Yes Status: Chronic Qualifiers: Dysphagia type: pharyngoesophageal phase Qualified Code(s): R13.14 - Dysphagia, pharyngoesophageal phase Plan to address problem: Patient has difficulty swallowing with food apparently getting stuck in the mid esophageal region. Patient had a hiatal hernia surgery recently Patient may need esophageal dilation GI consult requested (3) Hypertension Current Visit: Yes Status: Chronic Qualifiers: Hypertension type: essential hypertension Qualified Code(s): I10 - Essential (primary) hypertension Plan to address problem: Continue antihypertensives and adjust medications (4) IBS (irritable bowel syndrome) Current Visit: Yes Status: Chronic Qualifiers: Irritable bowel syndrome type: unspecified Qualified Code(s): K58.9 - Irrit able bowel syndrome without diarrhea Plan to address problem: Patient is on Linzess (5) Hypothyroidism Current Visit: Yes Status: Chronic Qualifiers: Hypothyroidism type: acquired Qualified Code(s): E03.9 - Hypothyroidism, unspecified Plan to address problem: Continue Levoxyl and check TSH (6) Hiatal hernia with GERD and esophagitis Current Visit: Yes Status: Chronic Plan to address problem: Continue PPIs and Reglan (7) Asthma Current Visit: Yes Status: Chronic Qualifiers: Asthma severity: mild Plan to address problem: Continue albuterol inhaler as needed basis (8) Generalized anxiety disorder Current Visit: Yes Status: Chronic Plan to address problem: Continue Xanax 1 mg 3 times a day (9) DVT prophylaxis Current Visit: Yes Status: Acute Plan to address problem: On heparin and GI prophylaxis
[2020-09-14] MEDS ORDERED: ACETAMINOPHEN 325 MG TAB PO PRN (23:45)
[2020-09-14] MEDS ORDERED: ONDANSETRON 4 MG/2 ML INJ IV PRN (23:45)
[2020-09-14] MEDS ORDERED: METOCLOPRAMIDE 10 MG/2 ML INJ IV PRN (23:45)
[2020-09-15] MEDS ORDERED: HYDROcodone/ACETAMINOPHEN 5-325 MG TAB PO PRN ×2 (00:04→01:00)
[2020-09-15] MEDS: hydrALAZINE 25 MG TAB PO SCH ×3 (00:14→22:20)
[2020-09-15] MEDS: HEPARIN 5,000 UNIT/1 ML VIAL SUB-Q SCH ×3 (00:15→21:24)
[2020-09-15] MEDS: LEVOTHYROXINE 25 MCG TAB PO SCH (05:06)
[2020-09-15] MEDS: LEVOTHYROXINE 112 MCG TAB PO SCH (05:06)
[2020-09-15] MEDS: ALPRAZolam 1 MG TAB PO PRN (06:19)
[2020-09-15 06:36] LABS: Basophils % (Auto) 0.7 % (0.0-1.8); Eosinophils # (Auto) 0.1 K/mm3 (0.0-0.4); Eosinophils % (Auto) 1.5 % (0.0-4.3); Hemoglobin 11.8 gm/dl (10.1-14.3); Lymphocytes % (Auto) 25.4 % (13.4-35.0); Mean Corpuscular HGB Conc 33 % (30-34); Mean Corpuscular Volume 89 fl (79-97); Monocytes # (Auto) 0.4 K/mm3 (0.0-0.8); Monocytes % (Auto) 9.7 % (0.0-7.3); Platelet Count 186 K/mm3 (140-440); Red Blood Count 4.07 M/mm3 (3.65-5.03); Red Cell Distribution Width 16.2 % (13.2-15.2)
[2020-09-15 06:55] LABS: Alanine Aminotransferase 22 units/L (7-56); BUN/Creatinine Ratio 6; Blood Urea Nitrogen 6 mg/dL (7-17); Calcium 9.6 mg/dL (8.4-10.2); Hemolysis Index 0
[2020-09-15] MEDS: LOSARTAN 50 MG TAB PO SCH (09:23)
[2020-09-15] MEDS: SPIRONOLACTONE 25 MG TAB PO SCH (09:24)
[2020-09-15] MEDS: PANTOPRAZOLE 40 MG TAB PO SCH (09:25)
[2020-09-15] MEDS: CITALOPRAM 20 MG TAB PO SCH (09:26)
[2020-09-15] MEDS: AMITRIPTYLINE 25 MG TAB PO SCH (09:28)
[2020-09-15] MEDS ORDERED: NON-FORMULARY EACH (Levothyroxine Sodium [Levothyroxine] 137 MCG Capsule) PO SCH (10:00)
--- NOTE | 2020-09-15 10:20 | Gastroenterology Consultation ---
History of Present Illness - Reason for Consult Consult date: 09/15/20 dysphagia Requesting physician: FERDINAND PADILLA - History of Present Illness The patient is a 60 yo aaf who presents with chest pain and dysphagia. Patient followed [facility] (Dr Chong), h/o gastric bypass (2010), had hiatal hernia repair apparently in July with PEG tube placed at that time (done at [facility]). has peg tube in place, reports food and liquids getting stuck in her throat. she drank liquids at bedside at time of exam but then spit up saliva/mucous appearing substance (not the liquid consumed). pt reports symptoms of dysphagia has been present for many months (reports worsened after COVID in December of last year). pt has had multiple visits to [place] facilities (recent [facility] records reviewed). Had EGD by outside group in 2019 which showed gastric bypass anatomy but no esophageal stricture/stenosis. has had similar complaints of dysphagia in throat last in June. Past History Past Medical History: other (lupus, hypothyroidism, gerd, htn, cad, diabetes) Past Surgical History: Other (Gastric bypass, thyroid surgery, partial hysterectomy, section. PEG tube, ) Medications and Allergies Allergies Allergy/AdvReac Type Severity Reaction Status Date / Time Sulfa (Sulfonamide Allergy Shortness Verified 09/14/20 11:40 Antibiotics) of Breath Home Medications Medication Instructions Recorded Confirmed Last Taken Type ALPRAZolam [Xanax TAB] 1 mg PO TID PRN 09/14/20 09/14/20 Unknown History Amitriptyline HCl 150 mg PO QDAY 09/14/20 09/14/20 Unknown History AtorvaSTATin [Lipitor] 40 mg PO QHS 09/14/20 09/14/20 Unknown History Citalopram Hydrobromide 40 mg PO QDAY 09/14/20 09/14/20 Unknown History [Citalopram HBr] Clindamycin [Clindamycin CAP] 3 cap PO TID PRN 09/14/20 09/14/20 Unknown History Dexlansoprazole [Dexilant] 60 mg PO QDAY 09/14/20 09/14/20 Unknown History HYDROcodone/ACETAMINOPHEN 1 each PO Q6HR PRN 09/14/20 09/14/20 Unknown History [Hydrocodone-Acetamin 5-300 mg] Ipratropium 0.06% [Atrovent] 2 spray NS Q8HR 09/14/20 09/14/20 Unknown History Levothyroxine Sodium 137 mcg PO QDAY 09/14/20 09/14/20 Unknown History [Levothyroxine] Losartan [Cozaar] 50 mg PO QDAY 09/14/20 09/14/20 Unknown History Omeprazole 40 mg PO QDAY 09/14/20 09/14/20 Unknown History Oseltamivir Phosphate [Tamiflu] 45 mg PO QDAY 09/14/20 09/14/20 Unknown History Promethazine [Phenergan] 25 mg PO Q6HR PRN 09/14/20 09/14/20 Unknown History Spironolactone [Aldactone] 25 mg PO QDAY 09/14/20 09/14/20 Unknown History cloNIDine [Catapres] 0.1 mg PO QHS 09/14/20 09/14/20 Unknown History hydrALAZINE [Apresoline] 25 mg PO BID 09/14/20 09/14/20 Unknown History Active Meds: Active Medications Acetaminophen (Acetaminophen 325 Mg Tab) 650 mg PO Q4H PRN PRN Reason: Pain MILD(1-3)/Fever >100.5/PRYOR Last Admin: 09/15/20 01:03 Dose: 650 mg Documented by: Hydrocodone Bitart/Acetaminophen (Hydrocodone/Acetaminophen 5-325 Mg Tab) 1 each PO Q6H PRN PRN Reason: Pain, Moderate (4-6) Alprazolam (Alprazolam 1 Mg Tab) 1 mg PO Q8H PRN PRN Reason: Anxiety Last Admin: 09/15/20 06:19 Dose: 1 mg Documented by: Amitriptyline HCl (Amitriptyline 25 Mg Tab) 150 mg PO QDAY [facility] Last Admin: 09/15/20 09:28 Dose: 150 mg Documented by: Atorvastatin Calcium (Atorvastatin 40 Mg Tab) 40 mg PO QHS [facility] Citalopram Hydrobromide (Citalopram 20 Mg Tab) 40 mg PO QDAY [facility] Last Admin: 09/15/20 09:26 Dose: 40 mg Documented by: Clonidine HCl (Clonidine 0.1 Mg Tab) 0.1 mg PO QHS [facility] Heparin Sodium (Porcine) (Heparin 5,000 Unit/1 Ml Vial) 5,000 unit SUB-Q Q12HR [facility] Last Admin: 09/15/20 09:26 Dose: 5,000 unit Documented by: Hydralazine HCl (Hydralazine 20 Mg/1 Ml Inj) 10 mg IV Q4HR PRN PRN Reason: Hypertension Last Admin: 09/14/20 22:07 Dose: 10 mg Documented by: Hydralazine HCl (Hydralazine 25 Mg Tab) 25 mg PO BID [facility] Last Admin: 09/15/20 09:25 Dose: 25 mg Documented by: Hydromorphone HCl (Hydromorphone 1 Mg/1 Ml Inj) 0.5 mg IV Q3H PRN PRN Reason: Pain , Severe (7-10) Last Admin: 09/14/20 16:13 Dose: 0.5 mg Documented by: Ipratropium [place] (Ipratropium 0.06% 15 Ml Nasal [place]) 2 spray NS Q8HR [facility] Levothyroxine Sodium (Levothyroxine 112 Mcg Tab) 112 mcg PO DAILY@0600 [facility] Last Admin: 09/15/20 05:06 Dose: 112 mcg Documented by: Levothyroxine Sodium (Levothyroxine 25 Mcg Tab) 25 mcg PO DAILY@0600 [facility] Last Admin: 09/15/20 05:06 Dose: 25 mcg Documented by: Losartan Potassium (Losartan 50 Mg Tab) 50 mg PO QDAY [facility] Last Admin: 09/15/20 09:23 Dose: 50 mg Documented by: Metoclopramide HCl (Metoclopramide 10 Mg/2 Ml Inj) 10 mg IV Q6H PRN PRN Reason: Nausea And Vomiting Ondansetron HCl (Ondansetron 4 Mg/2 Ml Inj) 4 mg IV Q8H PRN PRN Reason: Nausea And Vomiting Last Admin: 09/15/20 06:19 Dose: 4 mg Documented by: Pantoprazole Sodium (Pantoprazole 40 Mg Tab) 40 mg PO QDAY [facility] Last Admin: 09/15/20 09:25 Dose: 40 mg Documented by: Sodium Chloride (Sodium Chloride 0.9% 10 Ml Flush Syringe) 10 ml IV BID [facility] Last Admin: 09/15/20 09:32 Dose: 10 ml Documented by: Sodium Chloride (Sodium Chloride 0.9% 10 Ml Flush Syringe) 10 ml IV PRN PRN PRN Reason: LINE FLUSH Spironolactone (Spironolactone 25 Mg Tab) 25 mg PO QDAY [facility] Last Admin: 09/15/20 09:24 Dose: 25 mg Documented by: Reviewed/updated patient's home and current medications Review of Systems - Review of Systems All systems: negative (per HPI) Exam - Constitutional Vital Signs: Temp Pulse Resp BP Pulse Ox 98.4 F 65 18 143/72 98 09/15/20 09:04 09/15/20 09:25 09/15/20 09:04 09/15/20 09:25 09/15/20 09:04 General appearance: no acute distress - Respiratory Respiratory effort: normal Respiratory: bilateral: CTA - Cardiovascular Rhythm: regular Heart Sounds: Present: S1 & S2 - Gastrointestinal General gastrointestinal: Present: soft, non-tender, other (+ surgical scar, + peg tube) - Integumentary Integumentary: Present: clear, warm - Neurologic Neurological: alert and oriented x3 - Labs CBC & Chem 7: 09/15/20 05:57 09/15/20 05:57 Lab Results: Laboratory Results - last 24 hr 09/14/20 09/14/20 09/14/20 12:13 12:13 12:13 WBC 3.0 L RBC 4.00 Hgb 11.8 Hct 35.6 MCV 89 MCH 30 MCHC 33 RDW 16.7 H Plt Count 169 Lymph % (Auto) 27.7 [place] % (Auto) 8.8 H Eos % (Auto) 2.2 Baso % (Auto) 1.0 Lymph # (Auto) 0.8 L [place] # (Auto) 0.3 Eos # (Auto) 0.1 Baso # (Auto) 0.0 Seg Neutrophils % 60.3 Seg Neutrophils # 1.8 Sodium 137 Potassium 4.3 Chloride 102.7 Carbon Dioxide 28 Anion Gap 11 BUN 6 L Creatinine 1.0 Estimated GFR > 60 BUN/Creatinine Ratio 6 Glucose 128 H POC Glucose Hemoglobin A1c Calcium 9.3 Total Bilirubin 0.50 Direct Bilirubin < 0.2 Indirect Bilirubin 0.3 AST 28 ALT 23 Alkaline Phosphatase 96 Troponin T < 0.010 Total Protein 7.5 Albumin 4.1 Albumin/Globulin Ratio 1.2 Lipase 14 TSH Urine Color Urine Turbidity Urine pH Ur Specific [place] Urine Protein Urine Glucose (UA) Urine Ketones Urine Blood Urine Nitrite Urine Bilirubin Urine Urobilinogen Ur Leukocyte Esterase Urine WBC (Auto) Urine RBC (Auto) U Epithel Cells (Auto) Urine Bacteria (Auto) 09/14/20 09/14/20 09/14/20 19:57 23:57 Unknown WBC RBC Hgb Hct MCV MCH MCHC RDW Plt Count Lymph % (Auto) [place] % (Auto) Eos % (Auto) Baso % (Auto) Lymph # (Auto) [place] # (Auto) Eos # (Auto) Baso # (Auto) Seg Neutrophils % Seg Neutrophils # Sodium Potassium Chloride Carbon Dioxide Anion Gap BUN Creatinine Estimated GFR BUN/Creatinine Ratio Glucose POC Glucose 109 H Hemoglobin A1c Calcium Total Bilirubin Direct Bilirubin Indirect Bilirubin AST ALT Alkaline Phosphatase Troponin T < 0.010 Total Protein Albumin Albumin/Globulin Ratio Lipase TSH Urine Color Straw Urine Turbidity Clear Urine pH 7.0 Ur Specific [place] 1.003 Urine Protein <15 mg/dl Urine Glucose (UA) Neg Urine Ketones Neg Urine Blood Neg Urine Nitrite Neg Urine Bilirubin Neg Urine Urobilinogen < 2.0 Ur Leukocyte Esterase Neg Urine WBC (Auto) 1.0 Urine RBC (Auto) 1.0 U Epithel Cells (Auto) 2.0 Urine Bacteria (Auto) 1+ 09/15/20 09/15/20 09/15/20 05:57 05:57 05:57 WBC 4.1 L RBC 4.07 Hgb 11.8 Hct 36.0 MCV 89 MCH 29 MCHC 33 RDW 16.2 H Plt Count 186 Lymph % (Auto) 25.4 [place] % (Auto) 9.7 H Eos % (Auto) 1.5 Baso % (Auto) 0.7 Lymph # (Auto) 1.0 L [place] # (Auto) 0.4 Eos # (Auto) 0.1 Baso # (Auto) 0.0 Seg Neutrophils % 62.7 Seg Neutrophils # 2.6 Sodium 137 Potassium 3.8 Chloride 100.8 Carbon Dioxide 29 Anion Gap 11 BUN 6 L Creatinine 1.0 Estimated GFR > 60 BUN/Creatinine Ratio 6 Glucose 97 POC Glucose Hemoglobin A1c 4.4 Calcium 9.6 Total Bilirubin 0.50 Direct Bilirubin Indirect Bilirubin AST 25 ALT 22 Alkaline Phosphatase 94 Troponin T < 0.010 Total Protein 7.0 Albumin 4.0 Albumin/Globulin Ratio 1.3 Lipase TSH Urine Color Urine Turbidity Urine pH Ur Specific [place] Urine Protein Urine Glucose (UA) Urine Ketones Urine Blood Urine Nitrite Urine Bilirubin Urine Urobilinogen Ur Leukocyte Esterase Urine WBC (Auto) Urine RBC (Auto) U Epithel Cells (Auto) Urine Bacteria (Auto) 09/15/20 06:50 WBC RBC Hgb Hct MCV MCH MCHC RDW Plt Count Lymph % (Auto) [place] % (Auto) Eos % (Auto) Baso % (Auto) Lymph # (Auto) [place] # (Auto) Eos # (Auto) Baso # (Auto) Seg Neutrophils % Seg Neutrophils # Sodium Potassium Chloride Carbon Dioxide Anion Gap BUN Creatinine Estimated GFR BUN/Creatinine Ratio Glucose POC Glucose Hemoglobin A1c Calcium Total Bilirubin Direct Bilirubin Indirect Bilirubin AST ALT Alkaline Phosphatase Troponin T Total Protein Albumin Albumin/Globulin Ratio Lipase TSH 11.550 H Urine Color Urine Turbidity Urine pH Ur Specific [place] Urine Protein Urine Glucose (UA) Urine Ketones Urine Blood Urine Nitrite Urine Bilirubin Urine Urobilinogen Ur Leukocyte Esterase Urine WBC (Auto) Urine RBC (Auto) U Epithel Cells (Auto) Urine Bacteria (Auto) Assessment and Plan 1. Dysphagia, sounds oropharyngeal based on description and records from [facility] (on going for several months). however had recent HH surgery repair with peg placement in July, so will obtain esophagram to evaluate for esophageal stricture/mechanical issues (EGD based on findings)
[2020-09-15] MEDS ORDERED: D5W/0.9% NACL 1,000 ML IV SCH (11:00)
--- NOTE | 2020-09-15 13:59 | Progress Note ---
Assessment and Plan The patient is a 60 yo aaf who followed [facility] gastro specialists (Dr Chong), h/o gastric bypass (2010), had hiatal hernia repair apparently in July with PEG tube placed at that time (done at [facility]) presents with chest pain and dys phagia. --Acute chest pain Given her age and risk factors we will get the serial troponins and Lexiscan in the morning to rule out ischemia from coronary artery disease. Severe reflux may be contributing to the chest pain. Stress test on 03/10/2020 was negative for ischemia Consulted cardiology -- Dysphagia Patient has difficulty swallowing with food apparently getting stuck in the mid esophageal region. Patient had a hiatal hernia surgery recently Patient may need esophageal dilation GI consult requested -ordered for barium swallow study --Hypertension Continue antihypertensives and adjust medications -- IBS (irritable bowel syndrome) Patient is on Linzess -- Hypothyroidism Continue levothyroxine, TSH level is elevated will check for free T4 level May need to adjust levothyroxine dose based on free T4 level -- Hiatal hernia with GERD and esophagitis Continue PPIs and Reglan -- Asthma Continue albuterol inhaler as needed basis --Generalized anxiety disorder Continue Xanax 1 mg 3 times a day -- DVT prophylaxis On heparin and GI prophylaxis Daily course: 09/15: Stress test canceled as patient has recent stress test on 03/10/2020 with she was negative. Cardiology is consulted. GI recommended barium swallow study, will follow result. Subjective Date of service: 09/15/20 Interval history: Patient seen and examined s/p barium swallow test today c/o epigastric pain and dysphagia vitals noted Objective - Exam Narrative Exam: General appearance: Present: no acute distress, well-nourished - EENT Eyes: Present: PERRL ENT: hearing intact, clear oral mucosa - Neck Neck: Present: supple, normal ROM - Respiratory Respiratory effort: normal Respiratory: bilateral: CTA - Cardiovascular Heart rate: 78 Rhythm: regular Heart Sounds: Present: S1 & S2. Absent: rub, click - Extremities Extremities: pulses symmetrical, No edema Peripheral Pulses: within normal limits - Abdominal General gastrointestinal: Present: soft, non-tender, non-distended, normal bowel sounds. PEG in place - Rectal Rectal Exam: deferred - Integumentary Integumentary: Present: clear, warm, dry - Musculoskeletal Musculoskeletal: gait normal, strength equal bilaterally - Psychiatric Psychiatric: appropriate mood/affect, intact judgment & insight - Neurologic Neurologic: CNII-XII intact, moves all extremities - Constitutional Vitals: Vital Signs - 12hr 09/15/20 09/15/20 09/15/20 04:19 04:22 09:04 Temperature 97.9 F 98.4 F Pulse Rate 74 65 Respiratory 20 18 Rate Blood Pressure 141/79 143/72 O2 Sat by Pulse 95 97 98 Oximetry 09/15/20 09/15/20 09/15/20 09:23 09:24 09:25 Temperature Pulse Rate 65 65 65 Respiratory Rate Blood Pressure 143/72 143/72 143/72 O2 Sat by Pulse Oximetry - Labs CBC & Chem 7: 09/15/20 05:57 09/15/20 05:57 Labs: Abnormal lab results 09/14/20 09/15/20 09/15/20 Range/Units 19:57 05:57 05:57 WBC 4.1 L (4.5-11.0) K/mm3 RDW 16.2 H (13.2-15.2) % [place] % (Auto) 9.7 H (0.0-7.3) % Lymph # (Auto) 1.0 L (1.2-5.4) K/mm3 BUN 6 L (7-17) mg/dL POC Glucose 109 H (70-105) mg/dL TSH (0.270-4.200) mlU/mL 09/15/20 Range/Units 06:50 WBC (4.5-11.0) K/mm3 RDW (13.2-15.2) % [place] % (Auto) (0.0-7.3) % Lymph # (Auto) (1.2-5.4) K/mm3 BUN (7-17) mg/dL POC Glucose (70-105) mg/dL TSH 11.550 H (0.270-4.200) mlU/mL HEART Score - HEART Score EKG: Non-specific Age: 45-65 Risk factors: > 3 risk factors or hx of atherosclerotic disease Troponin: Troponin T < 0.010 ng/mL (0.00-0.029) 09/15/20 05:57 Troponin: < normal limit - Critical Actions Critical Actions: 4-6 pts:12-16.6% risk of adverse cardiac event. Should be admitted
--- NOTE | 2020-09-15 15:51 | Fluoroscopy Report ---
BARIUM SWALLOW Indication: dysphagia, oropharyngeal vs esophageal. Technique: Single and double contrast barium technique utilized to evaluate the esophagus. FINDINGS: To begin the exam, swallowing was evaluated in the lateral position under direct fluorosco py. Swallowing was normal. There appears to be a focal area of smooth narrowing in the distal esophagus just before the GE junct ion consistent with a moderate to high-grade stricture. No irregular mass is appreciated. This result s in delayed emptying of the esophagus throughout this exam. Occasional episodes of esophageal spasm was also demonstrated. A barium tablet was administered which would not pass through the suspected di stal esophageal stricture. The proximal and mid esophagus are normal. Gastric bypass changes are noted in the left upper quadran t. IMPRESSION: A moderate to high-grade stricture is suspected in the distal esophagus. See above. Mild esophageal dysmotility. Fluoroscopic time: 3.9 minutes Number of fluoroscopic images: 53 Signer Name: Ander Jason Jr, MD Signed: 09/15/2020 3:47 PM Workstation Name: [id number]
[2020-09-15] MEDS ORDERED: PANTOPRAZOLE 40 MG TAB PO ONE (15:55)
[2020-09-15] MEDS ORDERED: FAMOTIDINE 20 MG/2 ML INJ IV ONE (16:00)
[2020-09-15] MEDS: SODIUM CHLORIDE 0.9% 1000 ML 1,000 ML IV SCH (16:00)
[2020-09-15 21:05] LABS: INR 1.06 (0.87-1.13)
[2020-09-15] MEDS: IPRATROPIUM 0.06% NS SCH (21:15)
[2020-09-15] MEDS ORDERED: cloNIDine 0.1 MG TAB PO SCH (22:00)
[2020-09-16] MEDS: ALPRAZolam 1 MG TAB PO PRN (03:17)
[2020-09-16] MEDS: LEVOTHYROXINE 112 MCG TAB PO SCH (06:07)
[2020-09-16] MEDS: LEVOTHYROXINE 25 MCG TAB PO SCH (06:07)
[2020-09-16] MEDS: IPRATROPIUM 0.06% NS SCH (06:07)
[2020-09-16] MEDS: SODIUM CHLORIDE 0.9% 1000 ML 1,000 ML IV SCH (07:20)
--- NOTE | 2020-09-16 07:54 | Progress Note ---
Assessment and Plan Assessment and plan: The patient is a 60 yo aaf who followed [facility] gastro specialists (Dr Chong), h/o gastric bypass (2010), had hiatal hernia repair apparently in July with PEG tube placed at that time (done at [facility]) presents with chest pain and dysphagia. --Acute chest pain Given her age and risk factors we will get the serial troponins and Lexiscan in the morning to rule out ischemia from coronary artery disease. Severe reflux may be contributing to the chest pain. Stress test on 03/10/2020 was negative for ischemia Consulted cardiology -- Dysphagia- high-grade stricture is suspected in the distal esophagus. Patient has difficulty swallowing with food apparently getting stuck in the mid esophageal region. Patient had a hiatal hernia surgery recently Patient may need esophageal dilation GI consult requested -ordered for barium swallow study --Hypertension Continue antihypertensives and adjust medications -- IBS (irritable bowel syndrome) Patient is on Linzess -- Hypothyroidism Continue levothyroxine, TSH level is elevated will check for free T4 level May need to adjust levothyroxine dose based on free T4 level -- Hiatal hernia with GERD and esophagitis Continue PPIs and Reglan -- Asthma Continue albuterol inhaler as needed basis --Generalized anxiety disorder Continue Xanax 1 mg 3 times a day -- DVT prophylaxis On heparin and GI prophylaxis Daily course: 09/15: Stress test canceled as patient has recent stress test on 03/10/2020 with she was negative. Cardiology is consulted. GI recommended barium swallow study, will follow result. 09/16: Patient had a barium swallow test done yesterday. Will continue patient NPO based on finding. Barium swallow. IMPRESSION: A moderate to high-grade stricture is suspected in the distal esophagus. See above. Mild esophageal dysmotility. GI will follow the result for possible evaluation of oropharyngeal dysphagia. Per history obtained from GI evaluation patient had a recent hiatal hernia repair with PEG tube placed at the time. Cardiology has also been consulted for chest pain evaluation. We will follow their recommendation. Hospitalist Physical - Physical exam Narrative exam: - Exam Narrative Exam: General appearance: Present: no acute distress, well-nourished - EENT Eyes: Present: PERRL ENT: hearing intact, clear oral mucosa - Neck Neck: Present: supple, normal ROM - Respiratory Respiratory effort: normal Respiratory: bilateral: CTA - Cardiovascular Heart rate: 78 Rhythm: regular Heart Sounds: Present: S1 & S2. Absent: rub, click - Extremities Extremities: pulses symmetrical, No edema Peripheral Pulses: within normal limits - Abdominal General gastrointestinal: Present: soft, non-tender, non-distended, normal bowel sounds. PEG in place - Rectal Rectal Exam: deferred - Integumentary Integumentary: Present: clear, warm, dry - Musculoskeletal Musculoskeletal: gait normal, strength equal bilaterally - Psychiatric Psychiatric: appropriate mood/affect, intact judgment & insight - Neurologic Neurologic: CNII-XII intact, moves all extremities - Constitutional Vitals: Temp Pulse Resp BP Pulse Ox 98.7 F 68 16 100/62 99 09/16/20 04:22 09/16/20 04:22 09/16/20 04:22 09/16/20 04:22 09/16/20 04:22 General appearance: Present: no acute distress, well-nourished HEART Score - HEART Score EKG: Non-specific Age: 45-65 Risk factors: > 3 risk factors or hx of atherosclerotic disease Troponin: Troponin T < 0.010 ng/mL (0.00-0.029) 09/15/20 05:57 Troponin: < normal limit - Critical Actions Critical Actions: 4-6 pts:12-16.6% risk of adverse cardiac event. Should be admitted Results - Labs CBC & Chem 7: 09/15/20 05:57 09/15/20 05:57 Labs: Laboratory Last Values WBC 4.1 K/mm3 (4.5-11.0) L 09/15/20 05:57 RBC 4.07 M/mm3 (3.65-5.03) 09/15/20 05:57 Hgb 11.8 gm/dl (10.1-14.3) 09/15/20 05:57 Hct 36.0 % (30.3-42.9) 09/15/20 05:57 MCV 89 fl (79-97) 09/15/20 05:57 MCH 29 pg (28-32) 09/15/20 05:57 MCHC 33 % (30-34) 09/15/20 05:57 RDW 16.2 % (13.2-15.2) H 09/15/20 05:57 Plt Count 186 K/mm3 (140-440) 09/15/20 05:57 Lymph % (Auto) 25.4 % (13.4-35.0) 09/15/20 05:57 [place] % (Auto) 9.7 % (0.0-7.3) H 09/15/20 05:57 Eos % (Auto) 1.5 % (0.0-4.3) 09/15/20 05:57 Baso % (Auto) 0.7 % (0.0-1.8) 09/15/20 05:57 Lymph # (Auto) 1.0 K/mm3 (1.2-5.4) L 09/15/20 05:57 [place] # (Auto) 0.4 K/mm3 (0.0-0.8) 09/15/20 05:57 Eos # (Auto) 0.1 K/mm3 (0.0-0.4) 09/15/20 05:57 Baso # (Auto) 0.0 K/mm3 (0.0-0.1) 09/15/20 05:57 Seg Neutrophils % 62.7 % (40.0-70.0) 09/15/20 05:57 Seg Neutrophils # 2.6 K/mm3 (1.8-7.7) 09/15/20 05:57 PT 13.7 Sec. (12.2-14.9) 09/15/20 20:32 INR 1.06 (0.87-1.13) 09/15/20 20:32 Sodium 137 mmol/L (137-145) 09/15/20 05:57 Potassium 3.8 mmol/L (3.6-5.0) 09/15/20 05:57 Chloride 100.8 mmol/L (98-107) 09/15/20 05:57 Carbon Dioxide 29 mmol/L (22-30) 09/15/20 05:57 Anion Gap 11 mmol/L 09/15/20 05:57 BUN 6 mg/dL (7-17) L 09/15/20 05:57 Creatinine 1.0 mg/dL (0.6-1.2) 09/15/20 05:57 Estimated GFR > 60 ml/min 09/15/20 05:57 BUN/Creatinine Ratio 6 % 09/15/20 05:57 Glucose 97 mg/dL (65-100) 09/15/20 05:57 POC Glucose 49 mg/dL (70-105) L 09/15/20 20:18 Hemoglobin A1c 4.4 % (4-6) 09/15/20 05:57 Calcium 9.6 mg/dL (8.4-10.2) 09/15/20 05:57 Total Bilirubin 0.50 mg/dL (0.1-1.2) 09/15/20 05:57 Direct Bilirubin < 0.2 mg/dL (0-0.2) 09/14/20 12:13 Indirect Bilirubin 0.3 mg/dL 09/14/20 12:13 AST 25 units/L (5-40) 09/15/20 05:57 ALT 22 units/L (7-56) 09/15/20 05:57 Alkaline Phosphatase 94 units/L (35-129) 09/15/20 05:57 Troponin T < 0.010 ng/mL (0.00-0.029) 09/15/20 05:57 Total Protein 7.0 g/dL (6.3-8.2) 09/15/20 05:57 Albumin 4.0 g/dL (3.9-5) 09/15/20 05:57 Albumin/Globulin Ratio 1.3 % 09/15/20 05:57 Lipase 14 units/L (13-60) 09/14/20 12:13 TSH 11.550 mlU/mL (0.270-4.200) H 09/15/20 06:50 Free T4 1.05 ng/dL (0.76-1.46) 09/15/20 13:55 Urine Color Straw (Yellow) 09/14/20 Unknown Urine Turbidity Clear (Clear) 09/14/20 Unknown Urine pH 7.0 (5.0-7.0) 09/14/20 Unknown Ur Specific [place] 1.003 (1.003-1.030) 09/14/20 Unknown Urine Protein <15 mg/dl mg/dL (Negative) 09/14/20 Unknown Urine Glucose (UA) Neg mg/dL (Negative) 09/14/20 Unknown Urine Ketones Neg mg/dL (Negative) 09/14/20 Unknown Urine Blood Neg (Negative) 09/14/20 Unknown Urine Nitrite Neg (Negative) 09/14/20 Unknown Urine Bilirubin Neg (Negative) 09/14/20 Unknown Urine Urobilinogen < 2.0 mg/dL (<2.0) 09/14/20 Unknown Ur Leukocyte Esterase Neg (Negative) 09/14/20 Unknown Urine WBC (Auto) 1.0 /HPF (0.0-6.0) 09/14/20 Unknown Urine RBC (Auto) 1.0 /HPF (0.0-6.0) 09/14/20 Unknown U Epithel Cells (Auto) 2.0 /HPF (0-13.0) 09/14/20 Unknown Urine Bacteria (Auto) 1+ /HPF (Negative) 09/14/20 Unknown Owens/IV: Voiding Method Toilet Active Medications - Current Medications Current Medications: Generic Name Dose Route Start Last Admin Trade Name Freq PRN Reason Stop Dose Admin Acetaminophen 650 mg 09/14/20 23:45 09/15/20 01:03 Acetaminophen 325 Mg Tab PO 650 mg Q4H PRN Administration Pain MILD(1-3)/Fever >100.5/PRYOR Hydrocodone Bitart/Acetaminophen 1 each 09/15/20 01:00 Hydrocodone/Acetaminophen 5-325 Mg Tab PO Q6H PRN Pain, Moderate (4-6) Alprazolam 1 mg 09/14/20 20:25 09/16/20 03:17 Alprazolam 1 Mg Tab PO 1 mg Q8H PRN Administration Anxiety Amitriptyline HCl 150 mg 09/15/20 10:00 09/15/20 09:28 Amitriptyline 25 Mg Tab PO 150 mg QDAY KENNY Administration Atorvastatin Calcium 40 mg 09/15/20 22:00 09/15/20 21:19 Atorvastatin 40 Mg Tab PO Not Given QHS [facility] Citalopram Hydrobromide 40 mg 09/15/20 10:00 09/15/20 09:26 Citalopram 20 Mg Tab PO 40 mg QDAY KENNY Administration Clonidine HCl 0.1 mg 09/15/20 22:00 09/15/20 22:21 Clonidine 0.1 Mg Tab PO Not Given QHS [facility] Heparin Sodium (Porcine) 5,000 unit 09/14/20 23:45 09/15/20 21:24 Heparin 5,000 Unit/1 Ml Vial SUB-Q Not Given Q12HR [facility] Hydralazine HCl 10 mg 09/14/20 15:51 09/14/20 22:07 Hydralazine 20 Mg/1 Ml Inj IV 10 mg Q4HR PRN Administration Hypertension Hydralazine HCl 25 mg 09/14/20 23:45 09/15/20 22:20 Hydralazine 25 Mg Tab PO Not Given BID KENNY Hydromorphone HCl 0.5 mg 09/14/20 15:51 09/14/20 16:13 Hydromorphone 1 Mg/1 Ml Inj IV 0.5 mg Q3H PRN Administration Pain , Severe (7-10) Dextrose/Sodium Chloride 1,000 mls @ 75 mls/hr 09/15/20 11:00 09/15/20 21:16 D5ns IV 75 mls/hr DIRECT KENNY Administration Sodium Chloride 1,000 mls @ 100 mls/hr 09/15/20 16:00 09/16/20 07:20 Nacl 0.9% 1000 Ml IV 100 mls/hr DIRECT KENNY Administration Ipratropium [place] 2 spray 09/15/20 06:00 09/16/20 06:07 Ipratropium 0.06% 15 Ml Nasal [place] NS 2 spray Q8HR KENNY Administration Levothyroxine Sodium 112 mcg 09/15/20 06:00 09/16/20 06:07 Levothyroxine 112 Mcg Tab PO 112 mcg DAILY@0600 KENNY Administration Levothyroxine Sodium 25 mcg 09/15/20 06:00 09/16/20 06:07 Levothyroxine 25 Mcg Tab PO 25 mcg DAILY@0600 KENNY Administration Losartan Potassium 50 mg 09/15/20 10:00 09/15/20 09:23 Losartan 50 Mg Tab PO 50 mg QDAY KENNY Administration Metoclopramide HCl 10 mg 09/14/20 23:45 Metoclopramide 10 Mg/2 Ml Inj IV Q6H PRN Nausea And Vomiting Ondansetron HCl 4 mg 09/14/20 23:45 09/15/20 06:19 Ondansetron 4 Mg/2 Ml Inj IV 4 mg Q8H PRN Administration Nausea And Vomiting Pantoprazole Sodium 40 mg 09/14/20 10:00 09/15/20 09:25 Pantoprazole 40 Mg Tab PO 40 mg QDAY KENNY Administration Sodium Chloride 10 ml 09/14/20 23:45 09/15/20 21:18 Sodium Chloride 0.9% 10 Ml Flush Syringe IV 10 ml BID KENNY Administration Sodium Chloride 10 ml 09/14/20 23:45 Sodium Chloride 0.9% 10 Ml Flush Syringe IV PRN PRN LINE FLUSH Spironolactone 25 mg 09/15/20 10:00 09/15/20 09:24 Spironolactone 25 Mg Tab PO 25 mg QDAY KENNY Administration Nutrition/Malnutrition Assess - Dietary Evaluation Nutrition/Malnutrition Findings: Nutrition Notes Start: 09/15/20 10:47 Freq: Status: Active Protocol: Document 09/15/20 10:47 AT (Rec: 09/15/20 11:23 AT [id number]) Co-Sign 09/15/20 10:47 CW Nutrition Notes Need for Assessment 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 Pt reports history of gastric bypass in 2008 and is s/p hiatal hernia surgery in July 2020. Pt reports recent unintentional weight loss of 27% of body weight in the past 2 months due to severe reflux and dysphagia. Pt cannot tolerate dairy foods and prefers foods be pureed. She reports coughing when drinking. Other preferences were recorded. Per chart, pt has a distended abdomen. Pt also presents with PEG tube for the purposes of hydration, but it has never been used for enteral nutrition. NPO for procedure. Percent of energy/protein needs met: 0%/0% Burn Absent Trauma Absent GI Symptoms Nausea Difficulty In Swallowing Usual Diet at Home Soft foods Current % PO Negligible Minimum of two criteria No Interpretation of Weight Loss (severe) >10% in 6 months #2 Nutrition Diagnosis Swallowing difficulty Etiology Dysphagia, severe GERD As Evidenced by Signs and Symptoms 27% weight loss in 2 months #1 Nutrition Diagnosis Inadequate energy intake Etiology Dysphagia, GERD As Evidenced by Signs and Symptoms 23% weight loss in 6 months, current NPO status Is patient on ventilator? No Is Patient Ambulatory and/or Out of Bed Yes REE-([facility]-ambulatory/OOB) [ [id number] [id number]] Calculation Used for Recommendations Christal Reddy Additional Notes PRO needs: 56-70g (0.8-1 g/kg) Fluid needs: 1 mL/kcal or per MD Nutrition Intervention Change Diet Order: Advance diet when medically feasible to Pureed Cardiac/ Consistent CHO Goal #1 Diet advancement Anticipated Discharge Needs: Pureed Cardiac/Consistent CHO Follow-Up By: 09/19/20 Additional Comments F/U for diet advancement
[2020-09-16 08:59] VITALS: BP 127/72
--- NOTE | 2020-09-16 09:56 | Consultation ---
History of Present Illness Consult date: 09/16/20 Consult reason: chest pain History of present illness: 60 year old F who presents to this hospital with dysphagia and excessive mucous buildup. Patient reports after eating a meal her food gets stuck and causes chest discomfort. There is no unusual shortness of breath, palpitations and lower extremity edema. Chest x-ray is negative. Cardiac enzymes were normal. An ECG done on presentation is normal sinus rhythm, no ischemic changes. Patient has had extensive previous cardiac workup. A cardiac catheterization 5 years ago reports angiographically normal coronaries arteries. Serial thallium stress tests were all normal. 6 months ago she had a coronary CT angiography at [facility] that reports no significant coronary artery disease with a calcium score of zero. Past History Past Medical History: other (lupus, hypothyroidism, gerd, htn, diabetes) Past Surgical History: Other (Gastric bypass, thyroid surgery, partial hysterectomy, section. PEG tube, ) Medications and Allergies Allergies Allergy/AdvReac Type Severity Reaction Status Date / Time Sulfa (Sulfonamide Allergy Shortness Verified 09/14/20 11:40 Antibiotics) of Breath Home Medications Medication Instructions Recorded Confirmed Last Taken Type ALPRAZolam [Xanax TAB] 1 mg PO TID PRN 09/14/20 09/14/20 Unknown History Amitriptyline HCl 150 mg PO QDAY 09/14/20 09/14/20 Unknown History AtorvaSTATin [Lipitor] 40 mg PO QHS 09/14/20 09/14/20 Unknown History Citalopram Hydrobromide 40 mg PO QDAY 09/14/20 09/14/20 Unknown History [Citalopram HBr] Clindamycin [Clindamycin CAP] 3 cap PO TID PRN 09/14/20 09/14/20 Unknown History Dexlansoprazole [Dexilant] 60 mg PO QDAY 09/14/20 09/14/20 Unknown History HYDROcodone/ACETAMINOPHEN 1 each PO Q6HR PRN 09/14/20 09/14/20 Unknown History [Hydrocodone-Acetamin 5-300 mg] Ipratropium 0.06% [Atrovent] 2 spray NS Q8HR 09/14/20 09/14/20 Unknown History Levothyroxine Sodium 137 mcg PO QDAY 09/14/20 09/14/20 Unknown History [Levothyroxine] Omeprazole 40 mg PO QDAY 09/14/20 09/14/20 Unknown History Oseltamivir Phosphate [Tamiflu] 45 mg PO QDAY 09/14/20 09/14/20 Unknown History Promethazine [Phenergan] 25 mg PO Q6HR PRN 09/14/20 09/14/20 Unknown History Spironolactone [Aldactone] 25 mg PO QDAY 09/14/20 09/14/20 Unknown History cloNIDine [Catapres] 0.1 mg PO QHS 09/14/20 09/14/20 Unknown History hydrALAZINE [Apresoline TAB] 25 mg PO BID 09/14/20 09/14/20 Unknown History Amlodipine Besylate [Norvasc] 2.5 mg PO DAILY #30 tablet 09/16/20 Unknown Rx Losartan [Cozaar] 12.5 mg PO QDAY #30 tablet 09/16/20 Unknown Rx Active Meds: Active Medications Acetaminophen (Acetaminophen 325 Mg Tab) 650 mg PO Q4H PRN PRN Reason: Pain MILD(1-3)/Fever >100.5/PRYOR Last Admin: 09/15/20 01:03 Dose: 650 mg Documented by: Hydrocodone Bitart/Acetaminophen (Hydrocodone/Acetaminophen 5-325 Mg Tab) 1 each PO Q6H PRN PRN Reason: Pain, Moderate (4-6) Alprazolam (Alprazolam 1 Mg Tab) 1 mg PO Q8H PRN PRN Reason: Anxiety Last Admin: 09/16/20 03:17 Dose: 1 mg Documented by: Amitriptyline HCl (Amitriptyline 25 Mg Tab) 150 mg PO QDAY [facility] Last Admin: 09/15/20 09:28 Dose: 150 mg Documented by: Atorvastatin Calcium (Atorvastatin 40 Mg Tab) 40 mg PO QHS [facility] Last Admin: 09/15/20 21:19 Dose: Not Given Documented by: Citalopram Hydrobromide (Citalopram 20 Mg Tab) 40 mg PO QDAY [facility] Last Admin: 09/15/20 09:26 Dose: 40 mg Documented by: Clonidine HCl (Clonidine 0.1 Mg Tab) 0.1 mg PO QHS [facility] Last Admin: 09/15/20 22:21 Dose: Not Given Documented by: Heparin Sodium (Porcine) (Heparin 5,000 Unit/1 Ml Vial) 5,000 unit SUB-Q Q12HR [facility] Last Admin: 09/15/20 21:24 Dose: Not Given Documented by: Hydralazine HCl (Hydralazine 20 Mg/1 Ml Inj) 10 mg IV Q4HR PRN PRN Reason: Hypertension Last Admin: 09/14/20 22:07 Dose: 10 mg Documented by: Hydralazine HCl (Hydralazine 25 Mg Tab) 25 mg PO BID [facility] Last Admin: 09/15/20 22:20 Dose: Not Given Documented by: Hydromorphone HCl (Hydromorphone 1 Mg/1 Ml Inj) 0.5 mg IV Q3H PRN PRN Reason: Pain , Severe (7-10) Last Admin: 09/14/20 16:13 Dose: 0.5 mg Documented by: Dextrose/Sodium Chloride (D5ns) 1,000 mls @ 75 mls/hr IV DIRECT [facility] Last Admin: 09/15/20 21:16 Dose: 75 mls/hr Documented by: Sodium Chloride (Nacl 0.9% 1000 Ml) 1,000 mls @ 100 mls/hr IV DIRECT [facility] Last Admin: 09/16/20 07:20 Dose: 100 mls/hr Documented by: Ipratropium [place] (Ipratropium 0.06% 15 Ml Nasal [place]) 2 spray NS Q8HR [facility] Last Admin: 09/16/20 06:07 Dose: 2 spray Documented by: Levothyroxine Sodium (Levothyroxine 112 Mcg Tab) 112 mcg PO DAILY@0600 [facility] Last Admin: 09/16/20 06:07 Dose: 112 mcg Documented by: Levothyroxine Sodium (Levothyroxine 25 Mcg Tab) 25 mcg PO DAILY@0600 [facility] Last Admin: 09/16/20 06:07 Dose: 25 mcg Documented by: Losartan Potassium (Losartan 50 Mg Tab) 50 mg PO QDAY [facility] Last Admin: 09/15/20 09:23 Dose: 50 mg Documented by: Metoclopramide HCl (Metoclopramide 10 Mg/2 Ml Inj) 10 mg IV Q6H PRN PRN Reason: Nausea And Vomiting Ondansetron HCl (Ondansetron 4 Mg/2 Ml Inj) 4 mg IV Q8H PRN PRN Reason: Nausea And Vomiting Last Admin: 09/15/20 06:19 Dose: 4 mg Documented by: Pantoprazole Sodium (Pantoprazole 40 Mg Tab) 40 mg PO QDAY [facility] Last Admin: 09/15/20 09:25 Dose: 40 mg Documented by: Sodium Chloride (Sodium Chloride 0.9% 10 Ml Flush Syringe) 10 ml IV BID [facility] Last Admin: 09/15/20 21:18 Dose: 10 ml Documented by: Sodium Chloride (Sodium Chloride 0.9% 10 Ml Flush Syringe) 10 ml IV PRN PRN PRN Reason: LINE FLUSH Spironolactone (Spironolactone 25 Mg Tab) 25 mg PO QDAY [facility] Last Admin: 09/15/20 09:24 Dose: 25 mg Documented by: Review of Systems Cardiovascular: no chest pain, no palpitations, no edema, no syncope, no lightheadedness, no shortness of breath Physical Examination Vital Signs Temp Resp BP 98.2 F 20 187/101 09/14/20 11:39 09/14/20 11:39 09/14/20 11:39 General appearance: no acute distress HEENT: Positive: PERRL Neck: Positive: trachea midline Cardiac: Positive: Reg Rate and Rhythm Lungs: Positive: Normal Breath Sounds Abdomen: Positive: Other (s/p PEG) Extremities: Absent: edema Results 09/15/20 05:57 09/15/20 05:57 Coagulation 09/15/20 Range/Units 20:32 PT 13.7 (12.2-14.9) Sec. INR 1.06 (0.87-1.13) Assessment and Plan - Patient Problems (1) Chest pain Current Visit: Yes Status: Acute Plan to address problem: Chest pain is atypical ECG is normal and troponin measurements were normal. Prior cardiac tests: 02/2020 Thallium stress test was normal. 12/[address] angiography at [facility]: no significant coronary artery disease with a calcium score of zero. 12/2019 Re-echo showed left ventricular ejection fraction was 55 to 60%, there was moderate mitral, mild aortic and mild tricuspid regurgitation. 09/2018 Thallium stress test was normal. 2014 [facility]: angiographically normal coronary arteries. No further cardiac workup indicated. Will follow intermittently.
[2020-09-16] MEDS: LOSARTAN 50 MG TAB PO SCH (10:05)
[2020-09-16] MEDS: hydrALAZINE 25 MG TAB PO SCH (10:06)
[2020-09-16] MEDS: SPIRONOLACTONE 25 MG TAB PO SCH (10:06)
[2020-09-16] MEDS: PANTOPRAZOLE 40 MG TAB PO SCH (10:06)
[2020-09-16] MEDS: AMITRIPTYLINE 25 MG TAB PO SCH (10:07)
[2020-09-16] MEDS: HEPARIN 5,000 UNIT/1 ML VIAL SUB-Q SCH (10:07)
[2020-09-16] MEDS: CITALOPRAM 20 MG TAB PO SCH (10:09)
--- NOTE | 2020-09-16 10:19 | Discharge Summary ---
Providers - Providers Date of Admission: 09/14/20 14:28 Attending physician: AGUILAR ALMENDAREZ MD 09/14/20 23:51 Consult to Physician [CONS] Routine Comment: Consulting Provider: FORD SCHAEFER Physician Instructions: Reason For Exam: Difficulty swallowing, mid esophageal obstruction 09/16/20 06:35 Consult to Physician [CONS] Routine Comment: Consulting Provider: АЛЕКСАНДР PRIETO Physician Instructions: Reason For Exam: chest pain Primary care physician: RAHEL BETANCOURT Hospitalization Reason for admission: Esophageal dysphagia Condition: Fair Hospital course: The patient is a 60 yo aaf who followed [facility] (Dr Chong), h/o gastric bypass (2010), had hiatal hernia repair apparently in July with PEG tube placed at that time (done at [facility]) presents with chest pain and dysphagia. --Acute chest pain Given her age and risk factors we will get the serial troponins and Lexiscan in the morning to rule out ischemia from coronary artery disease. Severe reflux may be contributing to the chest pain. Stress test on 03/10/2020 was negative for ischemia Consulted cardiology -- Dysphagia- high-grade stricture is suspected in the distal esophagus. Patient has difficulty swallowing with food apparently getting stuck in the mid esophageal region. Patient had a hiatal hernia surgery recently Patient may need esophageal dilation GI consult requested -ordered for barium swallow study --Hypertension Continue antihypertensives and adjust medications -- IBS (irritable bowel syndrome) Patient is on Linzess -- Hypothyroidism Continue levothyroxine, TSH level is elevated will check for free T4 level May need to adjust levothyroxine dose based on free T4 level -- Hiatal hernia with GERD and esophagitis Continue PPIs and Reglan -- Asthma Continue albuterol inhaler as needed basis --Generalized anxiety disorder Continue Xanax 1 mg 3 times a day 09/15: Stress test canceled as patient has recent stress test on 03/10/2020 with she was negative. Cardiology is consulted. GI recommended barium swallow study, will follow result. 09/16: Patient had a barium swallow test done yesterday. Barium swallow. IMPRESSION: A moderate to high-grade stricture is suspected in the distal esophagus. See above. Mild esophageal dysmotility. GI will follow the result for possible evaluation of oropharyngeal dysphagia. Per history obtained from GI evaluation patient had a recent hiatal hernia repair with PEG tube placed at the time. Cardiology has also been consulted for chest pain evaluation. Chest pain has resolved is determined that this is secondary to dysphagia. 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 Nevertheless this morning the patient had some eggs and he did stay down there was no vomiting no chest pain reported. So he cleared the patient for discharge no further intervention needed at this time. I have told the patient to stay with soft diet for now small bites for now I started the patient on Norvasc. Also relaxation and decrease Cozaar to 12.5 twice daily. Disposition: TO HOME OR SELFCARE Time spent for discharge: 35 minutes Core Measure Documentation - Palliative Care Palliative Care/ Comfort Measures: Not Applicable - Core Measures Any of the following diagnoses?: none Exam - Physical Exam Narrative exam: The patient is a 60 yo aaf who followed [facility] (Dr Chong), h/o gastric bypass (2010), had hiatal hernia repair apparently in July with PEG tube placed at that time (done at [facility]) presents with chest pain and dysphagia. --Acute chest pain Given her age and risk factors we will get the serial troponins and Lexiscan in the morning to rule out ischemia from coronary artery disease. Severe reflux may be contributing to the chest pain. Stress test on 03/10/2020 was negative for ischemia Consulted cardiology -- Dysphagia- high-grade stricture is suspected in the distal esophagus. Patient has difficulty swallowing with food apparently getting stuck in the mid esophageal region. Patient had a hiatal hernia surgery recently Patient may need esophageal dilation GI consult requested -ordered for barium swallow study --Hypertension Continue antihypertensives and adjust medications -- IBS (irritable bowel syndrome) Patient is on Linzess -- Hypothyroidism Continue levothyroxine, TSH level is elevated will check for free T4 level May need to adjust levothyroxine dose based on free T4 level -- Hiatal hernia with GERD and esophagitis Continue PPIs and Reglan -- Asthma Continue albuterol inhaler as needed basis --Generalized anxiety disorder Continue Xanax 1 mg 3 times a day -- DVT prophylaxis On heparin and GI prophylaxis Daily course: 09/15: Stress test canceled as patient has recent stress test on 03/10/2020 with she was negative. Cardiology is consulted. GI recommended barium swallow study, will follow result. 09/16: Patient had a barium swallow test done yesterday. Will continue patient NPO based on finding. Barium swallow. IMPRESSION: A moderate to high-grade stricture is suspected in the distal esophagus. See above. Mild esophageal dysmotility. GI will follow the result for possible evaluation of oropharyngeal dysphagia. Per history obtained from GI evaluation patient had a recent hiatal hernia repair with PEG tube placed at the time. Cardiology has also been consulted for chest pain evaluation. We will follow their recommendation. Hospitalist Physical - Physical exam Narrative exam: - Exam Narrative Exam: General appearance: Present: no acute distress, well-nourished - EENT Eyes: Present: PERRL ENT: hearing intact, clear oral mucosa - Neck Neck: Present: supple, normal ROM - Respiratory Respiratory effort: normal Respiratory: bilateral: CTA - Cardiovascular Heart rate: 78 Rhythm: regular Heart Sounds: Present: S1 & S2. Absent: rub, click - Extremities Extremities: pulses symmetrical, No edema Peripheral Pulses: within normal limits - Abdominal General gastrointestinal: Present: soft, non-tender, non-distended, normal bowel sounds. PEG in place - Rectal Rectal Exam: deferred - Integumentary Integumentary: Present: clear, warm, dry - Musculoskeletal Musculoskeletal: gait normal, strength equal bilaterally - Psychiatric Psychiatric: appropriate mood/affect, intact judgment & insight - Neurologic Neurologic: CNII-XII intact, moves all extremities - Constitutional Vitals: Temp Pulse Resp BP Pulse Ox 97.9 F 64 16 127/72 100 09/16/20 08:59 09/16/20 08:59 09/16/20 08:59 09/16/20 08:59 09/16/20 08:59 Plan Activity: advance as tolerated, fall precautions Diet: low fat (Soft diet take small bites.) Special Instructions: restrict fluid intake to, record daily weights, record daily BP diary Follow up with: RAHEL BETANCOURT MD [Primary Care Provider] - 3-5 Days MARQUITA GONZALEZ MD [Staff Physician] - 7 Days Prescriptions: Losartan [Cozaar] 12.5 mg PO QDAY #30 tablet Amlodipine Besylate [Norvasc] 2.5 mg PO DAILY #30 tablet
--- NOTE | 2020-09-16 10:26 | Gastroenterology Progress Note ---
Assessment and Plan Dypshagia - sx's suggestive or oropharyngeal source, has had prior work-up (see HPI). esophagram did show signs of stricture in lower esophagus. however tolerated eggs and toast this morning so clinically without obstruction. okay for clears from gi stand point, has peg tube already, does not need emergent egd as tolerated softs. f/u with primary GI (Dr Chong) as outpatient. will sign off, please call as needed. Subjective Date of service: 09/16/20 Principal diagnosis: dysphagia Interval history: pt seen and examined; esophagram with suspected stricture in lower esophagus. egd was planned however pt ate eggs and toast this morning. was able to keep down however. Objective - Constitutional Vitals: Temp Pulse Resp BP Pulse Ox 97.9 F 64 16 127/72 100 09/16/20 08:59 09/16/20 10:06 09/16/20 08:59 09/16/20 10:06 09/16/20 08:59 General appearance: no acute distress - Respiratory Respiratory effort: normal Respiratory: bilateral: CTA - Cardiovascular Rhythm: regular Heart Sounds: Present: S1 & S2 - Gastrointestinal General gastrointestinal: Present: soft, other (+ surgical scar, + peg tube) - Labs CBC & Chem 7: 09/15/20 05:57 09/15/20 05:57 Labs: Laboratory Results - last 24 hr 09/15/20 09/15/20 09/15/20 09:11 10:39 13:55 PT INR POC Glucose 84 92 Free T4 1.05 09/15/20 09/15/20 09/15/20 15:30 20:18 20:32 PT 13.7 INR 1.06 POC Glucose 76 49 L Free T4
== END 2020-09-16 16:24 | disposition home or self-care (01) ==
LOC: ED 11:32 → 4A 14:28
PROVIDERS: ADMIT Internal Medicine; ATTEND Internal Medicine
DX: I24.9 Acute ischemic heart disease, unspecified (principal); I11.0 Hypertensive heart disease with heart failure; I50.9 Heart failure, unspecified; K58.9 Irritable bowel syndrome, unspecified; E03.9 Hypothyroidism, unspecified; K44.9 Diaphragmatic hernia without obstruction or gangrene; K21.9 Gastro-esophageal reflux disease without esophagitis; K20.90 Esophagitis, unspecified without bleeding; J45.909 Unspecified asthma, uncomplicated; F41.9 Anxiety disorder, unspecified; E11.9 Type 2 diabetes mellitus without complications; M32.9 Systemic lupus erythematosus, unspecified; R13.10 Dysphagia, unspecified; Z98.84 Bariatric surgery status; Z98.890 Other specified postprocedural states; Z98.891 History of uterine scar from previous surgery; Z90.49 Acquired absence of other specified parts of digestive tract
CPT/HCPCS: 36415; 71045; 74220; 80048; 80053; 80076; 81001; 82962; 83036; 83690; 84439; 84443; 84484; 85025; 85610; 87641; 93005; 96361; 96372; 96374; 96375; 96376; 99285; G0378; J0360; J1170; J1644; J2405; J3010; J7030; J7042

== ENCOUNTER 2021-09-29 07:29 | Outpatient (CLI) | payer MEDICARE ==
[2021-09-29 08:24] LABS: Blood Urea Nitrogen 23 mg/dL (7-17)
--- NOTE | 2021-09-29 09:27 | Cat Scan Report ---
CT ABDOMEN AND PELVIS WITH CONTRAST HISTORY: [id number] PAIN, EPIGASTRIC PAIN, PELVIC PAIN PT HAD A BARIUM SWALLOW TEST DONE ON August PT ALSO HAD A FEEDING TUBE PREVIOUSLY. OMNI 300 100 ML. COMPARISON: 01/12/2020 TECHNIQUE: Helical CT images of the abdomen and pelvis were obtained following administration of intr avenous contrast. Sagittal and coronal reformatted images were reviewed. All CT scans at this [facility] are performed using CT dose reduction for ALARA by means of automated exposure control. CONTRAST: 100 ml of intravenous contrast administered. FINDINGS: Abdomen/pelvis: There is rather dense barium contrast agent throughout the colon which limits this e xam. The patient reports a recent barium study performed on 09/15/2021. A few scattered liver cysts ar e noted and unchanged. The liver is otherwise unremarkable. Stable cholecystectomy changes with mild diffuse biliary prominence. The pancreas, spleen, kidneys and adrenal glands are grossly unremarkable . No evidence for bowel obstruction or focal inflammation. No ascites or free air. Hysterectomy costello es are suspected. The bladder is unremarkable. Lungs/bones: No significant abnormality. IMPRESSION: No acute process. No change since 01/12/2020. Signer Name: Ander Jason Jr, MD Signed: 09/29/2021 9:22 AM Workstation Name: [id number]
== END 2021-09-29 07:30 | disposition home or self-care (01) ==
LOC: CT 07:29
PROVIDERS: ATTEND Obstetrics & Gynecology
DX: K76.89 Other specified diseases of liver (principal); Z90.49 Acquired absence of other specified parts of digestive tract; Z90.710 Acquired absence of both cervix and uterus
CPT/HCPCS: 36415; 74177; 82565; 84520; Q9967